=== PATIENT | male | born 1980 | race Caucasian/White ===

== ENCOUNTER 2022-06-21 19:27 | Emergency (ER) | payer OTHER, SELFPAY ==
[2022-06-21 19:28] VITALS: BP 133/118; PULSE 99; RESP 16; TEMP 36.6; O2SAT 100; BMI 28.8
--- NOTE | 2022-06-21 19:43 | EDS_ITS ---
HPI <MISTY Dueñas - Last Filed: 06/21/22 20:40> History of Present Illness Chief Complaint: Wound Check Narrative Narrative: 42-year-old male had a colon resection and colostomy done on June 04 at [place] with Dr. Gil for colon cancer. He changes the ostomy bag every few days. When he changed it today the area around the stoma was red and irritated and he felt like there was a gap between the stoma and the edge of his skin. He has had normal ostomy output and his pain has been well managed on oxycodone. No fever chills nausea or vomiting. PFSH <MISTY Dueñas - Last Filed: 06/21/22 20:40> [facility] Home Medications cephalexin 500 mg capsule 500 mg PO Q12 #14 CAPSULES 06/21/22 [Rx Last Taken Unknown] Allergy/AdvReac Type Severity Reaction Status Date / Time naproxen AdvReac Other Verified 06/21/22 19:30 Social History Smoking Status: Never smoker ROS <MISTY Dueñas - Last Filed: 06/21/22 20:40> ROS ED ROS Narrative Constitutional: Negative for fever, chills, malaise. Eyes: Negative for visual change. ENT: Negative for sore throat, ear pain, rhinorrhea. CVS: Negative for palpitations, chest pain, syncope. Respiratory: Negative for shortness of breath, cough, orthopnea. GI: Negative for abdominal pain, nausea, vomiting, diarrhea, constipation, melena, hematochezia. : Negative for dysuria, hematuria or frequency. Neuro: Negative for headache, motor/sensory dysfunction. Skin: Negative for rash, abscess, or wound. Musc: Negative for joint pain, swelling, trauma. Heme: Negative for easy bruising, bleeding, lymphadenopathy. EXAM <MISTY Dueñas Last Filed: 06/21/22 20:40> Physical Exam Narrative Exam Narrative: CONST: Patient sitting in no acute distress. EYES: Normal inspection. NECK: Normal inspection. RESP: No respiratory distress, CTAB. CVS: Regular rate and rhythm, no murmur, no gallop. ABD: Ostomy is moist, pink. Halo of surrounding skin is red moist and irritated. Abdomen is soft and nontender, no guarding or rebound, nondistended. SKIN: Color normal, no rash, warm, dry, intact. EXTREMITIES: Normal appearance, no pedal edema. NEURO: Oriented x4. PSYCH: Normal affect. Const Vital Signs: 06/21/22 19:28 Temperature 97.8 F Temperature Source Temporal Pulse Rate 99 Respiratory Rate 16 Blood Pressure 133/118 H Blood Pressure Mean 123 Pulse Ox 100 Oxygen Delivery Method Room Air <Venkat Zavala MD - Last Filed: 06/21/22 22:52> Physical Exam Const Vital Signs: 06/21/22 19:28 Temperature 97.8 F Temperature Source Temporal Pulse Rate 99 Respiratory Rate 16 Blood Pressure 133/118 H Blood Pressure Mean 123 Pulse Ox 100 Oxygen Delivery Method Room Air [facility] <MISTY Dueñas - Last Filed: 06/21/22 20:40> [facility] Narrative Medical decision making narrative: Patient changed his colostomy bag today and was concerned that there was a slight gap between his stoma and the skin. Stoma looks pink, moist, and normal- appearing. There is maybe a small amount of space on the right side between the skin and the stoma but really this just looks like from it popping out after the bag change and is not abnormal. There is a halo of surrounding skin from the adhesive that is irritated and the superior portion has small amount of blood and irritated tissue. It does not obviously look cellulitic but he has not had it covered and there is stool draining around the area. He will be covered to prevent cellulitis with Keflex and was counseled on local wound care and ostomy changes. Patient given return precautions and discharged in stable condition. <Venkat Zavala MD - Last Filed: 06/21/22 22:52> [facility] Narrative Medical decision making narrative: Patient changed his colostomy bag today and was concerned that there was a slight gap between his stoma and the skin. Stoma looks pink, moist, and normal- appearing. There is maybe a small amount of space on the right side between the skin and the stoma but really this just looks like from it popping out after the bag change and is not abnormal. There is a halo of surrounding skin from the adhesive that is irritated and the superior portion has small amount of blood and irritated tissue. It does not obviously look cellulitic but he has not had it covered and there is stool draining around the area. He will be covered to prevent cellulitis with Keflex and was counseled on local wound care and ostomy changes. Patient given return precautions and discharged in stable condition. I have personally performed a face to face assessment of the patient and have reviewed the NEHEMIAS Note. I performed a substantive portion of the visit including all aspects of the following. My edgar findings include: History is area around stoma gapped with surrounding skin irritation and redness Exam is afebrile. Vital signs noted. Nontoxic-appearing. Stoma with surrounding irritated skin with minimal bleeding and area where adhesive was. Stoma players pink, skin edge slightly from area next to stoma on right, no active bleeding Medical Decision Making: I do feel this is acceptable widening of his stoma on 1 side, I do not feel that emergent imaging is indicated. He is not having any pain. Given that he has open skin in the area around his stoma with fecal material, he will be placed on antibiotics more as prophylaxis for cellulitis. He will follow-up with his surgeon at [place]. Disposition is discharged home in stable condition. Other additions or changes: [None] Discharge Plan Triage Chief Complaint: Wound Check ED Midlevel Provider: Kellen Morales ED Provider: Venkat Zavala Dx/Rx/DC Orders Clinical Impression: Stoma dermatitis Instructions: Ostomy Pouch Change Dc Prescriptions: New cephalexin 500 mg capsule 500 mg PO Q12 Qty: 14 0RF Primary Care Provider: Care Physician,No Primary Referrals: [facility] Doctor,Out of [Non-Staff] - Activity Restrictions/Additional Instructions: Keep area clean and change the bag as directed. We put you on antibiotics to prevent skin infection. If the redness spreads or you have new issues come back to an emergency room. Disposition Disposition: Home, Self Care Discharge Date/Time: 06/21/22 20:30
[2022-06-21] MEDS: Cephalexin 250 MG Capsule 500 MG PO (20:28)
== END 2022-06-21 20:30 | disposition home or self-care (01) ==
PROVIDERS: Emergency Provider Emergency Medicine; Visit Provider Emergency Medicine
DX: K94.09 Other complications of colostomy (principal); C18.9 Malignant neoplasm of colon, unspecified
CPT/HCPCS: 99283

== ENCOUNTER 2023-07-30 13:36 | Emergency (ER) | payer OTHER, SELFPAY ==
[2023-07-30 13:37] VITALS: BP 143/101; PULSE 131; RESP 20; TEMP 36; O2SAT 98; BMI 34.5
--- NOTE | 2023-07-30 14:23 | CT_ITS ---
STUDY: CT ABDOMEN AND PELVIS WITH CONTRAST - URINARY TRACT REASON FOR EXAM: Male, 43 years old. Distension, pain diffuse, vtg RADIATION DOSAGE (If Supplied By Facility): CTDIvol = ( 14.90 ) mGy, DLP = ( 1353.47 ) mGycm TECHNIQUE: IV 100mL Isovue-300 was administered. Transaxial images were obtained from the dome of the diaphragm to the symphysis pubis subsequent to intravenous contrast administration. Multiplanar coronal and sagittal images were reformatted. Individualized Dose Optimization Techniques Were Used For This CT. COMPARISON: No relevant prior comparison study available FINDINGS: There is minimal dependent consolidation within the right lower lobe. The visualized portions of the heart are within normal limits. Normal liver. Normal gallbladder and extrahepatic biliary system. Normal spleen. Normal pancreas. Normal bilateral adrenal glands. Normal visualized stomach. There are dilated loops of the small intestine with a non-distended colon consistent with a small bowel obstruction. There is evidence of resection of the sigmoid colon associated with a colostomy within the left lower quadrant. There is non-visualization of the appendix. There is ascites throughout the abdomen and pelvis. There are ill-defined opacities within the omentum. Normal abdominal aorta. No retroperitoneal adenopathy. There is right-sided hydronephrosis. There is a right-sided stent in place with proximal pigtail within the upper pole of the right collecting system and the distal pigtail within the urinary bladder. There is left-sided hydronephrosis as well associated with a ureteral catheter in place. The proximal left ureteral catheter is within the left renal pelvis and the distal detail within the urinary bladder. There is bladder wall thickening. There is soft tissue fullness within the presacral region. Normal abdominal wall. Normal osseous structures. CT/Abdomen/Pelvis W IV Cont ONLY IMPRESSION: Small bowel obstruction. Ascites. Bilateral hydronephrosis associated with bilateral ureteral stents. Bladder wall thickening may be secondary to cystitis of uncertain chronicity. Presacral soft tissue fullness, may be postsurgical or secondary to a neoplastic process. Electronically Signed: Ashly Shelley MD at 15:32 EST ,
--- NOTE | 2023-07-30 14:23 | ED.VIS.GI ---
HPI HPI - GI History of Present Illness Chief Complaint: Nausea/Vomiting Informant: patient and family Narrative Narrative: 43-year-old male with metastatic colorectal cancer under the care of oncologist at [facility] in [facility] he recently had a chemotherapy infusion into his med port, but he has not had a bowel movement in 5 days into his colostomy, and he has been distended and having pain for several days in addition to significant vomiting. [facility] Medical History (Updated 07/30/23 @ 16:[address] Chinedu Angel MD) Malignant neoplasm of colorectal area with metastasis Home Medications cephalexin 500 mg capsule 500 mg PO Q12 #14 CAPSULES 06/21/22 [Rx Last Taken Unknown] atorvastatin 40 mg tablet 40 mg PO QHS 07/30/23 [History Last Taken Unknown] linagliptin 5 mg tablet (Tradjenta) 5 mg PO DAILY 07/30/23 [History Last Taken Unknown] morphine 30 mg tablet,extended release 30 mg PO Q12H PRN pain 07/30/23 [History Last Taken Unknown] oxybutynin chloride 5 mg tablet,extended release 24 hr 5 mg PO DAILY 07/30/23 [History Last Taken Unknown] oxycodone 10 mg tablet 10 mg PO Q4H PRN pain 07/30/23 [History Last Taken Unknown] prochlorperazine maleate 10 mg tablet 10 mg PO Q6H PRN nausea 07/30/23 [History Last Taken Unknown] sennosides 8.6 mg-docusate sodium 50 mg tablet (Stool Softener-Laxative) 1 tab-cap PO BID PRN PRN constipation 07/30/23 [History Last Taken Unknown] Allergy/AdvReac Type Severity Reaction Status Date / Time naproxen AdvReac Other Verified 07/30/23 13:39 Social History Smoking Status: Never smoker ROS ROS ED Constitutional Constitutional ED: Reports fatigue and weakness; Denies chills or fever(s) Eyes Eyes: Denies change in vision or diplopia ENT ENT ED: Denies rhinorrhea or sore throat Cardiovascular Cardiovascular: Denies chest pain or palpitations Respiratory/Chest Respiratory/Chest: Denies cough or dyspnea Gastrointestinal Gastrointestinal: Reports abdominal pain, nausea and vomiting; Denies diarrhea Genitourinary Genitourinary ED: Denies dysuria or hematuria Musculoskeletal Musculoskeletal: Denies back pain or neck pain Integumentary Denies abscess or rash Neurologic Neurologic: Denies headache(s), paresthesias or weakness Psychiatric Psychiatric: Denies anxiety or suicidal thoughts EXAM Physical Exam Const Vital Signs: 07/30/23 13:37 07/30/23 16:04 07/30/23 18:09 Temperature 96.8 F L Temperature Source Temporal Pulse Rate 131 H 92 Respiratory Rate 20 H 19 H Blood Pressure 143/101 H 138/92 H 132/89 H Blood Pressure Mean 115 107 103 Pulse Ox 98 92 91 Oxygen Delivery Method Room Air Room Air 07/30/23 18:26 07/30/23 19:02 Temperature 98.4 F Temperature Source Oral Pulse Rate 82 94 Respiratory Rate 16 16 Blood Pressure 129/93 H 118/97 H Blood Pressure Mean 105 104 Pulse Ox 92 94 Oxygen Delivery Method Room Air Positive well nourished and well developed Constitutional Narrative: Malaised appearing General Appearance ED: well developed, NAD and pallor HEENT Reports moist mucous membranes normocephalic and atraumatic Eyes PERRL and EOMs intact bilaterally Neck full ROM and supple Resp normal respiratory effort and clear to auscultation bilaterally Cardio regular rate, regular rhythm and no murmurs Rate: tachycardic GI GI Narrative: Very distended, no ostomy output in bag, hypoactive bowel sounds, nontender diffusely but limited exam due to distention. Well-healing laparoscopic surgical incisions. Palpation: soft Back/Spine no CVA tenderness General Back: other FROM Extremity normal to inspection General Extremety ED: Negative for edema, pulses abnormal or tenderness General Extremity: Negative for edema or pulses abnormal Neuro oriented x3, CN's II-XII intact bilaterally and no sensory deficits noted Sensorium / Orientation: awake and alert Motor Exam: general weakness Psych mental status grossly normal and thought process normal Skin no rashes or lesions noted and no wounds General Skin Exam: pallor MDM MDM MDM Narrative Medical decision making narrative: Labs noted, CT images I reviewed and the result as well which I agree with, consistent with a small bowel obstruction and some ascites. I recommended NG tube if the patient is severely distended and has been vomiting all day. He will clearly need to be transferred back to [facility] where he was just admitted and his specialists are including colorectal Dr. Gil and hematology/oncology Dr. Russell. They are in agreement with this, however absolutely refused to go by ambulance, and so until we were able to discussed with the transfer center we held off on an NG since the patient understands he will not be able to take the NG down via private vehicle and he accessed the port. However, after discussing with the transfer center, there is a waiting list and it is possible he may not be able to have a bed available today. I discussed this with family given the option regarding the NG tube here based on how he is feeling. The patient decided to go ahead with the NG tube. KUB 1 view on my interpretation shows good placement, radiology in agreement. Subsequently, [facility] has a bed and accepting physician and he is excepted to the emergency department, and at this time he changed his mind and is willing to go by ambulance. We are calling for transport. Lab Data Attestation: I reviewed the patient's lab results. Labs: Laboratory Results - last 24 hr 07/30/23 14:00 WBC 6.3 RBC 4.42 L Hgb 12.3 L Hct 37.2 L MCV 84.2 MCH 27.8 MCHC 33.1 RDW Std Deviation 39.2 RDW Coeff of Ajay 12.9 Plt Count 418 MPV 9.4 Immature Gran % (Auto) 0.300 Neut % (Auto) 82.7 H Lymph % (Auto) 7.3 L Todd % (Auto) 8.9 Eos % (Auto) 0.3 Baso % (Auto) 0.5 Absolute Neuts (auto) 5.2 Absolute Lymphs (auto) 0.46 L Nucleated RBC % 0 Sodium 137 Potassium 3.3 L Chloride 98 Carbon Dioxide 30.0 Anion Gap 9 BUN 24 H Creatinine 1.30 Estim Creat Clear Calc 64.39 Est GFR (MDRD) Af Amer 78 Est GFR (MDRD) Non-Af 64 BUN/Creatinine Ratio 18.5 Glucose 223 H Lactic Acid 1.0 Calcium 9.6 Total Bilirubin 0.60 AST 20 ALT 46 Alkaline Phosphatase 99 Total Protein 7.2 Albumin 3.0 L Globulin 4.2 Albumin/Globulin Ratio 0.7 L Lipase 17 Radiography Diagnostic Testing: Clinical Impression(s) from Imaging Studies Abdomen/Pelvis CT 07/30/23 14:23 IMPRESSION: Small bowel obstruction. Ascites. Bilateral hydronephrosis associated with bilateral ureteral stents. Bladder wall thickening may be secondary to cystitis of uncertain chronicity. Presacral soft tissue fullness, may be postsurgical or secondary to a neoplastic process. Electronically Signed: Ashly Shelley MD at 15:32 EST , KUB X-Ray 07/30/23 16:50 IMPRESSION: 1. The enteric tube tip and side-port are below the level of the GE junction. 2. Nonspecific bowel gas pattern. 3. Excreted contrast within the urinary collecting systems revealing bilateral hydronephrosis. Ureteral stents are identified. Electronically Signed: Russell Garcia DO at 17:00 EST , Management Discussion w/another healthcare provider: Other (Transfer center at [facility]) Discharge Plan Triage Chief Complaint: Nausea/Vomiting Other Complaint: Abd Pain ED Provider: Chinedu Angel Dx/Rx/DC Orders Clinical Impression: Malignant neoplasm of colorectal area with metastasis, Small intestine obstruction Prescriptions: No Action cephalexin 500 mg capsule 500 mg PO Q12 Qty: 14 0RF morphine 30 mg tablet extended release 30 mg PO Q12H PRN (Reason: pain) Patient Comments: TAKE 1 TABLET BY MOUTH EVERY 12 HOURS oxycodone 10 mg tablet 10 mg PO Q4H PRN (Reason: pain) Patient Comments: TAKE 1 TABLET BY MOUTH EVERY 4 TO 6 HOURS NEEDED FOR PAIN sennosides-docusate sodium [Stool Softener-Laxative] 8.6-50 mg tablet 1 tab-cap PO BID PRN PRN (Reason: constipation) Patient Comments: TAKE 1 TABLET BY MOUTH NIGHTLY prochlorperazine maleate 10 mg tablet 10 mg PO Q6H PRN (Reason: nausea) Patient Comments: TAKE 1 TABLET BY MOUTH EVERY 6 HOURS NEEDED FOR NAUSEA oxybutynin chloride 5 mg tablet extended release 24hr 5 mg PO DAILY Patient Comments: TAKE 1 TABLET BY MOUTH ONCE DAILY Tradjenta 5 mg tablet 5 mg PO DAILY Patient Comments: TAKE 1 TABLET BY MOUTH ONCE DAILY atorvastatin 40 mg tablet 40 mg PO QHS Patient Comments: TAKE 1 TABLET BY MOUTH ONCE DAILY Primary Care Provider: RJ QUILES Referrals: Care Physician,No Primary [Non-Staff] -
[2023-07-30] MEDS: 0.9% Normal Saline (1000mL) 1,000 ML 1000 ML IV (14:35)
[2023-07-30] MEDS: Ondansetron 4 MG/2 ML Vial IV (14:35)
[2023-07-30] MEDS: Morphine 4 MG/ML Syringe IV ×3 (14:36→21:55)
[2023-07-30 14:50] LABS: Absolute Lymphocyte Count 0.46 X10^3/uL (0.83-4.51); Absolute Neutrophil Count 5.2 X10^3/uL (2.0-7.7); Basophil# 0.03 X10^3/uL; Basophil% 0.5 % (0-1); Eosinophil# 0.02 X10^3/uL; Eosinophils% 0.3 % (0-5); Hematocrit 37.2 % (40-54); Hemoglobin 12.3 g/dL (13.0-16.5); Lymphocyte # 0.46 X10^3/ul (0.83-4.51); Lymphocyte % 7.3 % (19-41); Mean Corp Hgb Conc 33.1 g/dL (32-36); Mean Corpuscular Hgb 27.8 pg (27.0-32.0); Mean Corpuscular Volume 84.2 fL (80-94); Mean Platelet Vol. 9.4 fl (6.2-12.0); Monocyte# 0.56 X10^3/uL; Monocyte% 8.9 % (0-10); NRBC Flagged by Analyzer 0 % (0-5); Neutrophil # 5.21 X10^3/uL (2.7-7.7); Neutrophil % 82.7 % (47-70); POSITIVE DIFFERENTIAL YES; Platelet Count 418 K/mm3 (150-450); RBC Distribution Width CV 12.9 % (11.6-14.6); RBC Distribution Width SD 39.2 fl (35.1-43.9); Red Blood Count 4.42 M/mm3 (4.6-6.2); White Blood Count 6.3 K/mm3 (4.4-11.0)
[2023-07-30 14:51] LABS: Differential Indicated SCAN CRITERIA MET
[2023-07-30 15:08] LABS: ALB/GLOB Ratio 0.7 RATIO (0.9-2.4); AST(SGOT) 20 U/L (15-37); Alanine Aminotransfer ALT/SGPT 46 U/L (16-61); Alkaline Phosphatase 99 U/L (45-117); Anion Gap 9 (5-15); BUN 24 mg/dL (7-18); BUN/Creat Ratio 18.5 RATIO (10-20); Calcium,Total 9.6 mg/dL (8.5-10.1); Chloride 98 mmol/L (98-107); EST Glomerular Filtration Rate 64 mL/min (>60); Est Glom Filt Rate - Afr Amer 78 mL/min (>60); Estimated Creatinine Clearance 64.39 ml/min; Globulin 4.2 g/dL (2.2-4.2); Glucose 223 mg/dL (74-106); Lipase 17 U/L (13-75); Potassium 3.3 mmol/L (3.5-5.1); Protein, Total 7.2 g/dL (6.4-8.2); Sodium Level 137 mmol/L (136-145)
[2023-07-30] MEDS: Oxymetazoline 0.05% 1 SPRAY SPRAY.BTL 2 SPRAY NASAL (15:58)
[2023-07-30 16:04] VITALS: BP 138/92; O2SAT 92
--- NOTE | 2023-07-30 16:15 | NURSING ---
CALLED [facility]. TALKED TO DALLIN. FAXED FACESHEET TO [phone]
--- NOTE | 2023-07-30 16:50 | RAD_ITS ---
EXAM: XR ABDOMEN, 1 VIEW CLINICAL INDICATION: NG placement TECHNIQUE: Frontal supine view of the abdomen/pelvis. COMPARISON: CT abdomen and pelvis on the same date. FINDINGS: LOWER THORAX: No acute pathology. GASTROINTESTINAL TRACT: Nonspecific bowel gas pattern. Non-obstructive. No bowel or stomach distention. ORGANS: Excreted contrast within the urinary collecting systems revealing bilateral hydronephrosis. Ureteral stents are identified. No organomegaly. No abnormal calcifications. BONES/JOINTS: No acute pathology. SOFT TISSUES: No acute pathology. TUBES, LINES AND DEVICES: The enteric tube tip and side-port are below the level of the GE junction. RAD/Abdomen Single View (Portable) IMPRESSION: 1. The enteric tube tip and side-port are below the level of the GE junction. 2. Nonspecific bowel gas pattern. 3. Excreted contrast within the urinary collecting systems revealing bilateral hydronephrosis. Ureteral stents are identified. Electronically Signed: Russell Garcia DO at 17:00 EST ,
--- NOTE | 2023-07-30 17:58 | NURSING ---
ACCEPTED AT [facility]
[2023-07-30 18:09] VITALS: BP 132/89; PULSE 92; RESP 19; O2SAT 91
[2023-07-30 18:26] VITALS: BP 129/93; PULSE 82; RESP 16; O2SAT 92
--- NOTE | 2023-07-30 18:39 | ED.RN ---
Attempted to call Report to [facility], on hold for 10 minutes. Will try again shortly.
[2023-07-30 19:02] VITALS: BP 118/97; PULSE 94; RESP 16; TEMP 36.9; O2SAT 94
--- NOTE | 2023-07-30 20:01 | NURSING ---
CALLED [facility] AT 1954 TO GET AN UPDATED ETA AND WAS TOLD IT GOT PUSHED BACK TO 2200 DUE TO LOCAL RUNS THAT THEY ARE GOING TO DO FIRST.
[2023-07-30 20:59] VITALS: BP 128/93; PULSE 93; RESP 16; O2SAT 92
== END 2023-07-30 23:50 | disposition short-term general hospital (02) ==
LOC: ED 14:30
PROVIDERS: Emergency Provider Emergency Medicine; Referring Provider Emergency Medicine; Visit Provider Emergency Medicine
DX: C19 Malignant neoplasm of rectosigmoid junction (principal); Z93.3 Colostomy status; K56.609 Unspecified intestinal obstruction, unspecified as to partial versus complete obstruction; Z79.899 Other long term (current) drug therapy
CPT/HCPCS: 36591; 74018; 74177; 80053; 83605; 83690; 85025; 96361; 96374; 96375; 96376; 99283; J7030; Q9967; A4216; J2405

== ENCOUNTER 2023-09-03 10:31 | Emergency (ER) | payer OTHER, SELFPAY ==
[2023-09-03 10:33] VITALS: BP 136/118; PULSE 97; RESP 18; TEMP 36.6; O2SAT 95; BMI 29.0
--- NOTE | 2023-09-03 11:15 | CT_ITS ---
STUDY: CT ABDOMEN AND PELVIS WITH CONTRAST REASON FOR EXAM: Male, 43 years old. pain, rectal CA RADIATION DOSAGE (If Supplied By Facility): CTDIvol = ( 10.05 ) mGy, DLP = ( 634.82 ) mGycm TECHNIQUE: Transaxial images were obtained from the dome of the diaphragm to the symphysis pubis without oral contrast. IV 100mL Isovue-300 was administered. Sagittal and coronal images were reconstructed. Individualized dose optimization techniques were used for this CT. COMPARISON: Comparison is made with prior study dated July 30, 2023. FINDINGS: The tip of a christa catheter is seen within the superior vena cava. Mild increased markings at the lung bases slightly more prominent on the right side suggestive of a basilar atelectasis. Mild coronary artery calcification. Ascites. Normal liver. Normal gallbladder and extrahepatic biliary system. Normal spleen. Normal pancreas. Normal bilateral adrenal glands. There is evidence of bilateral double J stent catheters bilaterally. The proximal tip is in the renal pelvis and the distal tip is in the urinary bladder. There is fluid distention of the stomach. A percutaneous PEG tube is seen in the distal portion of the stomach. Small bowel ostomy is seen in the left anterior abdominal wall. Anastomosis seen in the mid portion of the transverse colon. Moderate to large amount of fecal material is seen within the colon. Soft tissue prominence in the region of the rectum. Questionable rectal mass. Normal abdominal aorta. Normal inferior vena cava. Normal retroperitoneum. Mild degree of bladder wall thickening. Postoperative changes are seen in the subcutaneous tissue in the mid lower abdomen in keeping with recent surgery. Normal osseous structures. CT/Abdomen/Pelvis W IV Cont ONLY IMPRESSION: Findings suggestive or atelectasis at the lung bases. Ascites. PEG tube is seen within the stomach. The stomach is fully distended. Surgical anastomosis seen in the midportion of the transverse colon with residual fecal material throughout the colon. A small bowel ostomy is seen in the left anterior abdominal wall. Stable bilateral double-J stent catheters. Persistent presacral soft tissue prominence. Electronically Signed: Dio Eller MD at 13:21 EST ,
--- NOTE | 2023-09-03 11:16 | EDS_ITS ---
HPI History of Present Illness Chief Complaint: Abd Pain Informant: patient and parent Narrative Narrative: Patient presents secondary to increased abdominal pain and distention with an episode of vomiting. Patient has metastatic rectal cancer. He had surgery 1 month ago at [facility] in [place]. His last chemotherapy treatment was July 27. Patient presents today via EMS from local [facility] secondary to increasing abdominal pain for the past couple days with distention. He had decreased output in his colostomy bag. He did have an episode of vomiting last evening. He has not had fever. [facility] Medical History Abnormal colonoscopy Anxiety and depression Diabetes History of flexible sigmoidoscopy Hyperlipemia Malignant neoplasm of colorectal area with metastasis Monoallelic mutation of MIK gene Neuropathy Obesity Port-A-Cath in place Seizures Home Medications cephalexin 500 mg capsule 500 mg PO Q12 #14 CAPSULES 06/21/22 [Rx Last Taken Unknown] atorvastatin 40 mg tablet 40 mg PO QHS 07/30/23 [History Last Taken Unknown] linagliptin 5 mg tablet (Tradjenta) 5 mg PO DAILY 07/30/23 [History Last Taken Unknown] morphine 30 mg tablet,extended release 30 mg PO Q12H PRN pain 07/30/23 [History Last Taken Unknown] oxybutynin chloride 5 mg tablet,extended release 24 hr 5 mg PO DAILY 07/30/23 [History Last Taken Unknown] oxycodone 10 mg tablet 10 mg PO Q4H PRN pain 07/30/23 [History Last Taken Unknown] prochlorperazine maleate 10 mg tablet 10 mg PO Q6H PRN nausea 07/30/23 [History Last Taken Unknown] sennosides 8.6 mg-docusate sodium 50 mg tablet (Stool Softener-Laxative) 1 tab- cap PO BID PRN PRN constipation 07/30/23 [History Last Taken Unknown] capecitabine 150 mg tablet 150 mg PO BID 08/24/23 [History Last Taken Unknown] gabapentin 300 mg capsule 300 mg PO DAILY 08/24/23 [History Last Taken Unknown] lisinopril 10 mg tablet 10 mg PO DAILY 08/24/23 [History Last Taken Unknown] metformin 500 mg tablet 500 mg PO DAILY 08/24/23 [History Last Taken Unknown] semaglutide 1 mg/dose (4 mg/3 mL) subcutaneous pen injector (PropertyGuruempic) 1 mg subcu t QWEEK 08/24/23 [History Last Taken Unknown] Allergy/AdvReac Type Severity Reaction Status Date / Time naproxen AdvReac Other Verified 09/03/23 10:33 Family History Father CVA (cerebral vascular accident) Diabetes Agent orange exposure Aunt Colon cancer Grandmother Colon cancer Grandfather Diabetes Surgical History H/O ureteroscopy History of creation of ostomy History of incision and drainage History of laparoscopy Social History Smoking Status: Unknown if ever smoked Tobacco: How many years used: 10 alcohol intake: current alcohol intake frequency: holidays/special occasions only substance use type: does not use ROS ROS ED Constitutional Constitutional ED: Denies chills or fever(s) Eyes Eyes: Denies discharge from eye(s) ENT ENT ED: Denies discharge from eye(s), rhinorrhea or sore throat Cardiovascular Cardiovascular: Denies chest pain Respiratory/Chest Respiratory/Chest: Denies cough or dyspnea Gastrointestinal Gastrointestinal: Reports abdominal pain, nausea and vomiting Musculoskeletal Musculoskeletal: Denies back pain or extremity pain Integumentary Denies Abrasions or rash Neurologic Neurologic: Reports weakness; Denies headache(s) Psychiatric Psychiatric: Denies anxiety or depression Allergic/Immunologic Allergic/Immunologic ED: Denies lip swelling or urticaria EXAM Physical Exam Const Vital Signs: 09/03/23 10:33 09/03/23 13:18 Temperature 97.8 F 97.3 F L Temperature Source Oral Temporal Pulse Rate 97 89 Respiratory Rate 18 16 Blood Pressure 136/118 H 114/80 Blood Pressure Mean 124 91 Pulse Ox 95 96 Oxygen Delivery Method Room Air Room Air Positive well nourished and well developed General Appearance ED: well developed HEENT Reports moist mucous membranes Eyes EOMs intact bilaterally Chest Wall inspection of chest normal and palpation of chest normal Resp normal respiratory effort and clear to auscultation bilaterally Cardio regular rate and regular rhythm GI GI Narrative: Abdomen soft with slight distention. No focal tenderness. Recent surgical wound midline is clean with no sign of infection. Colostomy bag contains air and small amount of stool. Extremity normal to inspection Neuro Neuro Narrative: Patient rests with eyes closed but will answer questions and follow commands. Skin no rashes or lesions noted MDM MDM MDM Narrative Medical decision making narrative: IV line will be established. Labwork obtained to evaluate for leukocytosis, anemia, and electrolyte derangement. CT scan of the abdomen and pelvis will be obtained with IV contrast to evaluate for potential bowel obstruction. History & Record Review Discussion w/independent historian: Patient and Family Lab Data Attestation: I reviewed the patient's lab results. Labs: Laboratory Results - last 24 hr 09/03/23 09/03/23 10:50 13:20 WBC 7.9 RBC 3.81 L Hgb 9.9 L Hct 31.3 L MCV 82.2 MCH 26.0 L MCHC 31.6 L RDW Std Deviation 41.1 RDW Coeff of Ajay 13.8 Plt Count 518 H MPV 9.5 Immature Gran % (Auto) 0.400 Neut % (Auto) 70.0 Lymph % (Auto) 17.2 L [place] % (Auto) 10.9 H Eos % (Auto) 0.9 Baso % (Auto) 0.6 Absolute Neuts (auto) 5.5 Absolute Lymphs (auto) 1.36 Nucleated RBC % 0 PT 14.4 INR 1.1 APTT 30.9 Sodium 139 Potassium 3.7 Chloride 103 Carbon Dioxide 29.0 Anion Gap 7 BUN 22 H Creatinine 1.31 H Estim Creat Clear Calc 71.17 Est GFR (MDRD) Af Amer 77 Est GFR (MDRD) Non-Af 64 BUN/Creatinine Ratio 16.8 Glucose 189 H Calcium 9.8 Total Bilirubin 0.30 Direct Bilirubin 0.10 AST 8 L ALT 18 Alkaline Phosphatase 124 H Total Protein 7.7 Albumin 2.6 L Globulin 5.1 H Lipase 23 Urine Color Yellow Urine Clarity Clear Urine pH 5.0 Ur Specific [place] 1.010 Urine Protein Negative Urine Glucose (UA) Normal Urine Ketones Negative Urine Occult Blood Negative Urine Nitrite Negative Urine Bilirubin Negative Urine Urobilinogen Normal Ur Leukocyte Esterase 25 H Urine RBC 0 SEEN Urine WBC 0-5 SEEN Ur Squamous Epith Cells 0 SEEN Urine Bacteria 0 SEEN Urine Mucus 0 SEEN Radiography Diagnostic Testing: Clinical Impression(s) from Imaging Studies Abdomen/Pelvis CT 09/03/23 11:15 IMPRESSION: Findings suggestive or atelectasis at the lung bases. Ascites. PEG tube is seen within the stomach. The stomach is fully distended. Surgical anastomosis seen in the midportion of the transverse colon with residual fecal material throughout the colon. A small bowel ostomy is seen in the left anterior abdominal wall. Stable bilateral double-J stent catheters. Persistent presacral soft tissue prominence. Electronically Signed: Dio Eller MD at 13:21 EST , EKG Initial EKG: Attestation: I personally reviewed and interpreted this EKG as follows: Interpretation: Sinus Rhythm (Sinus 81 with no acute ischemia.) Treatment and Re-Evaluation :: CBC was normal white count 7.9 with a hemoglobin 9.9. This is actually improved when compared to his prior values. Chemistry studies unremarkable other than a BUN of 22 and a creatinine 1.31. This again is consistent with his recent values. Glucose is 189. LFTs significantly for an alk phos of 124. Urinalysis reveals no evidence of infection. CT scan of the abdomen and pelvis with IV contrast is obtained. Patient does have ascites and evidence of atelectasis at the lung bases. PEG tube was seen within the stomach. The stomach is fully distended. Surgical anastomosis seen at the midportion of the transverse colon with residual fecal material throughout the colon. Small bowel ostomy is noted in the left anterior abdominal wall. Renal stents noted in good position. When patient returned from [place] family stated that they had hooked his PEG tube up to suction at [place] and this seemed to help his symptoms. This was performed here and has improved his nausea. We spoke with the [facility] and with an order they are able to hook him up to intermittent suction to help with this. At this point I do not see reason for hospital admission. Order for suction has been faxed to the facility and they will obtain the equipment within the next 4 to 6 hours. Patient can be discharged back to [facility]. Discharge Plan Triage Chief Complaint: Abd Pain ED Provider: Yani Delgado Dx/Rx/DC Orders Clinical Impression: Abdominal distension Prescriptions: No Action Ozempic 1 mg/dose (4 mg/3 mL) pen injector 1 mg subcut QWEEK capecitabine 150 mg tablet 150 mg PO BID Rx Instructions: administer with 3 - 500 mg tabs for each dose; must give with water 30 minutes after a meal gabapentin 300 mg capsule 300 mg PO DAILY metformin 500 mg tablet 500 mg PO DAILY lisinopril 10 mg tablet 10 mg PO DAILY cephalexin 500 mg capsule 500 mg PO Q12 Qty: 14 0RF morphine 30 mg tablet extended release 30 mg PO Q12H PRN (Reason: pain) Patient Comments: TAKE 1 TABLET BY MOUTH EVERY 12 HOURS oxycodone 10 mg tablet 10 mg PO Q4H PRN (Reason: pain) Patient Comments: TAKE 1 TABLET BY MOUTH EVERY 4 TO 6 HOURS NEEDED FOR PAIN sennosides-docusate sodium [Stool Softener-Laxative] 8.6-50 mg tablet 1 tab-cap PO BID PRN PRN (Reason: constipation) Patient Comments: TAKE 1 TABLET BY MOUTH NIGHTLY prochlorperazine maleate 10 mg tablet 10 mg PO Q6H PRN (Reason: nausea) Patient Comments: TAKE 1 TABLET BY MOUTH EVERY 6 HOURS NEEDED FOR NAUSEA oxybutynin chloride 5 mg tablet extended release 24hr 5 mg PO DAILY Patient Comments: TAKE 1 TABLET BY MOUTH ONCE DAILY Tradjenta 5 mg tablet 5 mg PO DAILY Patient Comments: TAKE 1 TABLET BY MOUTH ONCE DAILY atorvastatin 40 mg tablet 40 mg PO QHS Patient Comments: TAKE 1 TABLET BY MOUTH ONCE DAILY Primary Care Provider: Cara Padron Referrals: Cara Padron MD [Primary Care Provider] - 3-5 Days Activity Restrictions/Additional Instructions: As discussed, order has been sent to the fpc so they can treatment supervisor intermittent suction to your PEG tube to help with distention. Disposition Disposition: Long Term Facility Discharge Location: [facility]
--- NOTE | 2023-09-03 11:18 | ED.RN ---
NO OLD EKG
[2023-09-03] MEDS: 0.9% Normal Saline (1000mL) 1,000 ML 150 ML IV (11:33)
[2023-09-03 11:36] LABS: Absolute Lymphocyte Count 1.36 X10^3/uL (0.83-4.51); Absolute Neutrophil Count 5.5 X10^3/uL (2.0-7.7); Basophil# 0.05 X10^3/uL; Basophil% 0.6 % (0-1); Eosinophil# 0.07 X10^3/uL; Eosinophils% 0.9 % (0-5); Hematocrit 31.3 % (40-54); Hemoglobin 9.9 g/dL (13.0-16.5); Lymphocyte # 1.36 X10^3/ul (0.83-4.51); Lymphocyte % 17.2 % (19-41); Mean Corp Hgb Conc 31.6 g/dL (32-36); Mean Corpuscular Volume 82.2 fL (80-94); Mean Platelet Vol. 9.5 fl (6.2-12.0); Monocyte# 0.86 X10^3/uL; Monocyte% 10.9 % (0-10); NRBC Flagged by Analyzer 0 % (0-5); Neutrophil # 5.54 X10^3/uL (2.7-7.7); Platelet Count 518 K/mm3 (150-450); RBC Distribution Width CV 13.8 % (11.6-14.6); RBC Distribution Width SD 41.1 fl (35.1-43.9); Red Blood Count 3.81 M/mm3 (4.6-6.2); White Blood Count 7.9 K/mm3 (4.4-11.0)
[2023-09-03 11:39] LABS: International Normalized Ratio 1.1; Prothrombin Time (Protime)PT. 14.4 SECONDS (11.7-14.9)
[2023-09-03 11:40] LABS: AST(SGOT) 8 U/L (15-37); Alanine Aminotransfer ALT/SGPT 18 U/L (16-61); Albumin, Serum 2.6 g/dL (3.2-5.0); Alkaline Phosphatase 124 U/L (45-117); Anion Gap 7 (5-15); BUN 22 mg/dL (7-18); BUN/Creat Ratio 16.8 RATIO (10-20); Calcium,Total 9.8 mg/dL (8.5-10.1); Chloride 103 mmol/L (98-107); Creatinine, Serum 1.31 mg/dL (0.70-1.30); EST Glomerular Filtration Rate 64 mL/min (>60); Est Glom Filt Rate - Afr Amer 77 mL/min (>60); Estimated Creatinine Clearance 71.17 ml/min; Globulin 5.1 g/dL (2.2-4.2); Glucose 189 mg/dL (74-106); Lipase 23 U/L (13-75); Potassium 3.7 mmol/L (3.5-5.1); Protein, Total 7.7 g/dL (6.4-8.2); Sodium Level 139 mmol/L (136-145)
[2023-09-03 11:41] LABS: Partial Thromboplast Time 30.9 Seconds (24.1-36.2)
[2023-09-03] MEDS: Morphine 4 MG/ML Syringe IV ×2 (12:12→15:30)
[2023-09-03] MEDS: Ondansetron 4 MG/2 ML Vial IV (12:12)
[2023-09-03 13:18] VITALS: BP 114/80; PULSE 89; RESP 16; TEMP 36.3; O2SAT 96
[2023-09-03 13:22] LABS: Bacteria 0 SEEN /hpf (None Seen); Mucous, Urine 0 SEEN /hpf (<or=2+); Red Blood Cells-Urine 0 SEEN /hpf (0-5); Squamous Epithelial Cells - UA 0 SEEN /hpf (0-5)
[2023-09-03 13:30] LABS: Color, Urine Yellow (Yellow); Glucose, Dipstick Normal (Normal); Ketone-Dipstick Negative (Negative); Leukocyte Esterase-Dipstick 25 /ul (Negative); Nitrite-Dipstick Negative (Negative); Occult Blood-Urine Negative /ul (Negative); Protein-Dipstick Negative (Negative); Urine Bilirubin Dipstick Negative (Negative); Urine Clarity Clear (Clear); Urine Urobilinogen Normal (Normal)
[2023-09-03 13:35] LABS: White Blood Cells 0-5 SEEN /hpf (0-5)
--- NOTE | 2023-09-03 13:57 | ED.RN ---
G tube to suction per pt request. notified. 300 ml out immediately.
[2023-09-03 14:47] VITALS: BP 135/88; PULSE 100; RESP 17; O2SAT 94
--- NOTE | 2023-09-03 14:59 | ED.RN ---
[facility] CALLED, ETA 1 HOUR (1600)
[2023-09-03 15:02] VITALS: BP 135/88; PULSE 96
--- NOTE | 2023-09-03 15:20 | ED.RN ---
reports given to Nickie BURGESS at [facility]. informed that they should have received fax for suction. also informed that pt is requesting colostomy bag to be changed today when returning to [facility]. ride should be here at 1600.
--- NOTE | 2023-09-03 15:48 | ED.RN ---
[facility] CALLED TO UPDATE ON ETA. SPOKE WITH NADIR, SHE STATED THAT THE RIDE IS PUSHED BACK FROM 1600 TO [phone].
== END 2023-09-03 16:38 | disposition skilled nursing facility (03) ==
PROVIDERS: Emergency Provider Emergency Medicine; PCP Internal Medicine; Visit Provider Emergency Medicine
DX: R14.0 Abdominal distension (gaseous) (principal); C79.9 Secondary malignant neoplasm of unspecified site; Z93.3 Colostomy status; C20 Malignant neoplasm of rectum; E11.9 Type 2 diabetes mellitus without complications; R18.8 Other ascites; R11.10 Vomiting, unspecified; E78.5 Hyperlipidemia, unspecified; Z79.84 Long term (current) use of oral hypoglycemic drugs; Z79.899 Other long term (current) drug therapy; Z80.0 Family history of malignant neoplasm of digestive organs
CPT/HCPCS: 36591; 74177; 80048; 80076; 81001; 83690; 85025; 85610; 85730; 93005; 96361; 96374; 96375; 96376; 99285; J7030; P9612; Q9967; A4216; J2405

== ENCOUNTER 2023-09-04 15:00 | Inpatient (IN) | payer OTHER, SELFPAY ==
[2023-09-04] VITALS (11 sets, daily range): BP systolic 98–128; BP diastolic 61–77; PULSE 108–134; RESP 16–29; TEMP 36.7–39.6; O2SAT 93–99; BMI 28.3; BMI 28.8
--- NOTE | 2023-09-04 15:45 | EDS_ITS ---
HPI History of Present Illness Chief Complaint: Fever Informant: patient and family Narrative Narrative: 43-year-old male with metastatic rectal cancer had a bowel obstruction a month ago or more and surgery shortly thereafter, he has a wound VAC ever since then t hat has not been putting out a lot according to him. He was seen here yesterday because of abdominal pain and some nausea that got worse, he had a negative workup. He presents now because he developed a fever at the assisted and was sent back for reevaluation. 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 He urinates on his own, he has bilateral ureteral stents because of hydronephrosis bilaterally, and he denies any hematuria or difficulty urinating at all. States he is not having a lot of colostomy output because he is not eating very much, but he is passing flatus into it and not vomiting. He has been on TPN at the assisted, but they were not giving it to him for some reason since he was having abdominal pain in the last several days. He has had no chemotherapy since his surgery a month ago, so his last treatment was at the end of July. He follows with colorectal and oncology at [facility] in [place]. [facility] Medical History Abnormal colonoscopy Anxiety and depression Diabetes History of flexible sigmoidoscopy Hyperlipemia Malignant neoplasm of colorectal area with metastasis Monoallelic mutation of MIK gene Neuropathy Obesity Port-A-Cath in place Seizures Home Medications cephalexin 500 mg capsule 500 mg PO Q12 #14 CAPSULES 06/21/22 [Rx Last Taken Unknown] atorvastatin 40 mg tablet 40 mg PO DAILY CHOLESTEROL 07/30/23 [History Last Taken Unknown] linagliptin 5 mg tablet (Tradjenta) 5 mg PO DAILY 07/30/23 [History Last Taken Unknown] morphine 30 mg tablet,extended release 30 mg PO Q12H PRN pain 07/30/23 [History Last Taken Unknown] oxybutynin chloride 5 mg tablet,extended release 24 hr 10 mg PO DAILY URINARY SPASMS 07/30/23 [History Last Taken Unknown] oxycodone 10 mg tablet 10 mg PO Q4H PRN pain 07/30/23 [History Last Taken Unknown] prochlorperazine maleate 10 mg tablet 10 mg PO Q6H PRN nausea 07/30/23 [History Last Taken Unknown] sennosides 8.6 mg-docusate sodium 50 mg tablet (Stool Softener-Laxative) 1 tab- cap PO BID PRN PRN constipation 07/30/23 [History Last Taken Unknown] capecitabine 150 mg tablet 150 mg PO BID 08/24/23 [History Last Taken Unknown] gabapentin 300 mg capsule 300 mg PO DAILY 08/24/23 [History Last Taken Unknown] lisinopril 10 mg tablet 10 mg PO DAILY 08/24/23 [History Last Taken Unknown] metformin 500 mg tablet 500 mg PO DAILY 08/24/23 [History Last Taken Unknown] semaglutide 1 mg/dose (4 mg/3 mL) subcutaneous pen injector (Ozempic) 1 mg subcut QWEEK 08/24/23 [History Last Taken Unknown] dronabinol 5 mg capsule 5 mg PO BID POOR APPETITE 09/04/23 [History Last Taken Unknown] ergocalciferol (vitamin D2) 1,250 mcg (50,000 unit) capsule (Drisdol) 50,000 unit PO QWEEK SUPPLEME 09/04/23 [History Last Taken Unknown] famotidine 20 mg tablet 20 mg PO BID INDIGESTION 09/04/23 [History Last Taken Unknown] mirtazapine 15 mg tablet 15 mg PO QHS DEPRESSION 09/04/23 [History Last Taken Unknown] multivitamin 1 tab PO DAILY SUPPLEMENT 09/04/23 [History Last Taken Unknown] ondansetron HCl 4 mg tablet 4 mg PO Q6H PRN N/V 09/04/23 [History Last Taken Unknown] trazodone 50 mg tablet 25 mg PO QHS INSOMNIA 09/04/23 [History Last Taken Unknown] Allergy/AdvReac Type Severity Reaction Status Date / Time naproxen AdvReac Other Verified 09/04/23 15:05 Family History Father CVA (cerebral vascular accident) Diabetes Agent orange exposure Aunt Colon cancer Grandmother Colon cancer Grandfather Diabetes Surgical History H/O ureteroscopy History of creation of ostomy History of incision and drainage History of laparoscopy Social History Smoking Status: Former smoker Tobacco: How many years used: 10 alcohol intake: current alcohol intake frequency: holidays/special occasions only substance use type: does not use ROS ROS ED Constitutional Constitutional ED: Reports chills, fever(s) and subjective Eyes Eyes: Denies change in vision or diplopia ENT ENT ED: Denies ear pain, rhinorrhea or sore throat Cardiovascular Cardiovascular: Denies chest pain or palpitations Respiratory/Chest Respiratory/Chest: Denies cough or dyspnea Gastrointestinal Gastrointestinal: Reports abdominal pain and nausea; Denies diarrhea, hematochezia or vomiting Genitourinary Genitourinary ED: Denies dysuria or hematuria Musculoskeletal Musculoskeletal: Denies back pain or neck pain Integumentary Denies abscess or rash Neurologic Neurologic: Reports other Details: Generalized nonfocal weakness ; Denies headache(s), paresthesias or weakness Psychiatric Psychiatric: Denies suicidal ideation or suicidal thoughts EXAM Physical Exam Const Vital Signs: 09/04/23 15:02 09/04/23 15:06 09/04/23 16:24 Temperature 100.5 F H 100.5 F H Temperature Source Oral Temporal Pulse Rate 134 H 134 H Respiratory Rate 20 H 16 Respiratory Effort Normal Respiratory Pattern Normal Blood Pressure 112/75 100/70 Blood Pressure Mean 87 80 Pulse Ox 93 96 Oxygen Delivery Method Room Air Room Air 09/04/23 15:42 09/04/23 17:37 Temperature 98.9 F Temperature Source Temporal Pulse Rate 130 H Respiratory Rate 19 H Respiratory Effort Respiratory Pattern Blood Pressure 101/61 Blood Pressure Mean 74 Pulse Ox 96 Oxygen Delivery Method Room Air Room Air Positive well nourished and well developed General Appearance ED: well developed and NAD HEENT Reports moist mucous membranes normocephalic and atraumatic Eyes PERRL and EOMs intact bilaterally Neck full ROM and supple Resp normal respiratory effort and clear to auscultation bilaterally Cardio regular rate, regular rhythm and no murmurs GI non-tender and non-distended Auscultation: normoactive bowel sounds Palpation: soft Back/Spine no CVA tenderness General Back: other FROM Extremity normal to inspection General Extremety ED: Negative for edema, pulses abnormal or tenderness General Extremity: Negative for edema or pulses abnormal Neuro oriented x3, CN's II-XII intact bilaterally and no sensory deficits noted Sensorium / Orientation: awake and alert Motor Exam: strength 5/5 throughout Skin no rashes or lesions noted and no wounds Sepsis Attestation Sepsis Alert: Yes Sepsis Attestation: Agree w/Sepsis Date exam was performed: 09/04/23 Time exam was performed: 17:30 Possible Source of Sepsis: Genitourinary and Other (line sepsis due to TPN) Sepsis Organ Dysfunction Criteria Present: SBP decrease of more than 40 mmHg (90 compared with 136 yesterday) and Creatinine > 2.0 mg/dL Supportive Findings: persistent tachycardia despite fever resolution Fluid Resuscitation Fluid resuscitation indicated?: Yes Fluid Resuscitation ordered: Lesser volume fluid bolus ordered Amount of fluid ordered: 1,500 Reason for lesser fluid bolus:: BP Responded to a lesser volume Sepsis Note Date exam was performed: 09/04/23 Time exam was performed: 18:06 Sepsis Attestation: Sepsis re-evaluation was performed Response to fluids: Fluid responsive hypotension (101/61; however, later SBP decreased to 80-90, so more IVFB ordered/given) MDM MDM MDM Narrative Medical decision making narrative: Here the patient does have a low-grade fever. He had an extensive workup yesterday including a CT of the abdomen/pelvis, showing good placement of both of his stents, and nothing acute. He does have left upper quadrant tenderness but his abdomen is fairly benign, and I see no obvious source of infection on his physical exam. He has risk for line sepsis because of the TPN, risk for urosepsis given the ureteral stents in place however his urinalysis was normal yesterday showing no indication of infection, he is in a assisted and certainly could have COVID, influenza, or any other highly communicable viral infection, we will do a chest x-ray to rule out pneumonia, and the rest of a hematologic septic workup and will repeat his urinalysis so that we can send his urine for culture to rule that out. In the meantime he will be given some fluids and Tylenol. Patient's white blood count went up to 12.3, predilection for neutrophils with an ANC of 11.2. Although his urinalysis was negative yesterday, today it is showing multiple indicators of infection. He is not having pain to suggest pyelonephritis, and he has bilateral stents that are in good place according to the CT yesterday. Therefore I do not think he needs emergent urologic surgery/procedure. IV Rocephin was started, after urine and blood were sent for cultures. After the initial 500 cc IV fluid bolus, his blood pressure is now lower, it has been trending low and now is 90 systolic so he is ordered another liter of fluid. His lactate is within normal limits. After the other liter his blood pressure is up 101/61. Systolic I saw was as low as 90. He is somnolent but airway is stable. Persistent tachycardia 130 despite getting his temperature down with Tylenol. Discussed with him and mother. They prefer to stay here if able. History & Record Review Additional record(s) reviewed:: Prior ED visit and Prior labs Lab Data Attestation: I reviewed the patient's lab results. Labs: Laboratory Results - last 24 hr 09/04/23 09/04/23 15:40 16:20 WBC 12.3 H RBC 3.59 L Hgb 9.5 L Hct 29.6 L MCV 82.5 MCH 26.5 L MCHC 32.1 RDW Std Deviation 41.2 RDW Coeff of Ajay 13.8 Plt Count 282 MPV 9.1 Immature Gran % (Auto) 0.900 Neut % (Auto) 91.4 H Lymph % (Auto) 3.4 L [place] % (Auto) 3.3 Eos % (Auto) 0.7 Baso % (Auto) 0.3 Absolute Neuts (auto) 11.2 H Absolute Lymphs (auto) 0.42 L Nucleated RBC % 0 Differential Comment SCANNED PT 15.6 H INR 1.2 APTT 26.4 Sodium 135 L Potassium 3.7 Chloride 101 Carbon Dioxide 24.0 Anion Gap 10 BUN 27 H Creatinine 2.25 H Est GFR (MDRD) Af Amer 41 L Est GFR (MDRD) Non-Af 34 L BUN/Creatinine Ratio 12.0 Glucose 169 H Lactic Acid 1.8 Calcium 8.9 Total Bilirubin 0.50 AST 13 L ALT 16 Alkaline Phosphatase 111 Total Protein 7.0 Albumin 2.5 L Globulin 4.5 H Albumin/Globulin Ratio 0.6 L Urine Color Yellow Urine Clarity Sl. Cloudy Urine pH 7.0 Ur Specific [place] 1.010 Urine Protein 30 H Urine Glucose (UA) Normal Urine Ketones Negative Urine Occult Blood 25 H Urine Nitrite Positive H Urine Bilirubin Negative Urine Urobilinogen Normal Ur Leukocyte Esterase 500 H Urine RBC 0 SEEN Urine WBC 5-10 SEEN Ur Squamous Epith Cells 0 SEEN Urine Bacteria 2+ Urine Mucus 0 SEEN Radiography Diagnostic Testing: Clinical Impression(s) from Imaging Studies Chest X-Ray 09/04/23 16:20 IMPRESSION: No active disease. Electronically Signed: Marcelo Gonzalez MD at 17:17 EST , Rhythm Strip Rhythm Strip: Sinus Tach Rate: 120 Ectopy: None EKG Initial EKG: Attestation: I personally reviewed and interpreted this EKG as follows: Interpretation: No Acute Injury Pattern and Sinus Tachycardia Management Discussion w/another healthcare provider: Hospitalist and Acupuncture Physician (Urology Dr. Ivan, who is okay with consultation if needed) Critical Care Time Critical Care Time: Yes Critical care time (excluding procedures): 30-74 minutes (32 min), Including time spent:, Discussing w/Patient &/or Family/Sales Incentive Analyst, Discussing w/Consultants, Arranging Admission or Transfer and Performing Direct Patient Care at Bedside Discharge Plan Dx/Rx/DC Orders Clinical Impression: DAMIAN (acute kidney injury), Primary malignant neoplasm of colorectal area with metastasis, Complicated UTI (urinary tract infection), Sepsis Disposition Disposition: [facility]
[2023-09-04 15:58] LABS: Absolute Lymphocyte Count 0.42 X10^3/uL (0.83-4.51); Absolute Neutrophil Count 11.2 X10^3/uL (2.0-7.7); Basophil# 0.04 X10^3/uL; Basophil% 0.3 % (0-1); Eosinophil# 0.08 X10^3/uL; Eosinophils% 0.7 % (0-5); Hematocrit 29.6 % (40-54); Hemoglobin 9.5 g/dL (13.0-16.5); Lymphocyte # 0.42 X10^3/ul (0.83-4.51); Lymphocyte % 3.4 % (19-41); Mean Corp Hgb Conc 32.1 g/dL (32-36); Mean Corpuscular Hgb 26.5 pg (27.0-32.0); Mean Corpuscular Volume 82.5 fL (80-94); Mean Platelet Vol. 9.1 fl (6.2-12.0); Monocyte# 0.41 X10^3/uL; Monocyte% 3.3 % (0-10); NRBC Flagged by Analyzer 0 % (0-5); Neutrophil # 11.23 X10^3/uL (2.7-7.7); Neutrophil % 91.4 % (47-70); POSITIVE DIFFERENTIAL YES; Platelet Count 282 K/mm3 (150-450); RBC Distribution Width CV 13.8 % (11.6-14.6); RBC Distribution Width SD 41.2 fl (35.1-43.9); Red Blood Count 3.59 M/mm3 (4.6-6.2); White Blood Count 12.3 K/mm3 (4.4-11.0)
[2023-09-04 16:00] LABS: Differential Indicated SCAN CRITERIA MET
[2023-09-04 16:01] LABS: Differential Comment SCANNED
[2023-09-04] MEDS: 0.9% Normal Saline (500mL Bag) 500 ML 999 ML IV (16:04)
[2023-09-04] MEDS: Acetaminophen 500 MG Tablet 1000 MG PO (16:04)
[2023-09-04 16:09] LABS: International Normalized Ratio 1.2; Prothrombin Time (Protime)PT. 15.6 SECONDS (11.7-14.9)
[2023-09-04 16:19] LABS: Lactic Acid 1.8 mmol/L (0.4-1.9)
[2023-09-04 16:20] LABS: Partial Thromboplast Time 26.4 Seconds (24.1-36.2)
--- NOTE | 2023-09-04 16:20 | RAD_ITS ---
STUDY: X-RAY CHEST REASON FOR EXAM: Male, 43 years old. fever TECHNIQUE: Single AP portable view of the chest. COMPARISON: None. FINDINGS: Right internal jugular chest port which is unchanged. The lungs are clear and expanded. There is no demonstrated pleural abnormality. Normal size heart. Normal mediastinum and diego. Normal visualized pulmonary arteries. Normal visualized aortic arch and descending thoracic aorta. Normal visualized thoracic spine. Normal visualized ribs, clavicles, and shoulders. There is no demonstrated abnormality of the visualized soft tissue structures of the upper abdomen. RAD/Chest 1 View (Portable) IMPRESSION: No active disease. Electronically Signed: Marcelo Gonzalez MD at 17:17 EST ,
[2023-09-04 16:26] LABS: ALB/GLOB Ratio 0.6 RATIO (0.9-2.4); AST(SGOT) 13 U/L (15-37); Alanine Aminotransfer ALT/SGPT 16 U/L (16-61); Albumin, Serum 2.5 g/dL (3.2-5.0); Alkaline Phosphatase 111 U/L (45-117); Anion Gap 10 (5-15); BUN 27 mg/dL (7-18); Calcium,Total 8.9 mg/dL (8.5-10.1); Chloride 101 mmol/L (98-107); Creatinine, Serum 2.25 mg/dL (0.70-1.30); EST Glomerular Filtration Rate 34 mL/min (>60); Est Glom Filt Rate - Afr Amer 41 mL/min (>60); Globulin 4.5 g/dL (2.2-4.2); Glucose 169 mg/dL (74-106); Potassium 3.7 mmol/L (3.5-5.1); Sodium Level 135 mmol/L (136-145)
[2023-09-04 16:27] LABS: Mucous, Urine 0 SEEN /hpf (<or=2+); Red Blood Cells-Urine 0 SEEN /hpf (0-5); Squamous Epithelial Cells - UA 0 SEEN /hpf (0-5)
[2023-09-04 16:32] LABS: Color, Urine Yellow (Yellow); Glucose, Dipstick Normal (Normal); Ketone-Dipstick Negative (Negative); Leukocyte Esterase-Dipstick 500 /ul (Negative); Nitrite-Dipstick Positive (Negative); Occult Blood-Urine 25 /ul (Negative); Protein-Dipstick 30 mg/dl (Negative); Urine Bilirubin Dipstick Negative (Negative); Urine Clarity Sl. Cloudy (Clear); Urine Urobilinogen Normal (Normal)
[2023-09-04 16:51] LABS: Bacteria 2+ /hpf (None Seen); White Blood Cells 5-10 SEEN /hpf (0-5)
[2023-09-04] MEDS: 0.9% Normal Saline (1000mL) 1,000 ML 999 ML IV ×3 (17:00→21:05)
[2023-09-04] MEDS: Ceftriaxone 1 GM/50 ML BAG IV (17:26)
--- NOTE | 2023-09-04 18:49 | HP.PCM.HOS_ITS ---
HPI - General General Date of Admission: 09/04/23 Date of Service: 09/04/23 Chief Complaint: Fever today. ED visit yesterday for abdominal pain and vomiting HPI Narrative ADAM VEGA, is a 43 M with complicated history of rectal cancer with obstruction and multiple surgeries, last one in August 2023 came to ED from extended care facility for fever today. Before that patient came yesterday with abdominal distention/pain and vomiting and had CT was done which shows fecal matter in residual colon with G-tube and colostomy. Patient had hydronephrosis and bilateral ureteric stent since all surgery done in [facility]. Today in the morning had a fever noted to be about 103 Fahrenheit in prison paper. In ED, patient was found hypotensive, tachycardic raising suspicion for sepsis. Patient on second liter of IV bolus given IV ceftriaxone. Started on IV Zosyn and admitted in ICU for for further management. Vitals, labs, x-ray and CT abdomen reviewed and discussed in assessment and plan. I talked to the patient's mother near the bedside and patient's power of collections attorney for health his brother on the phone in ED. 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 Neuropathy Obesity Port-A-Cath in place Seizures Home Medications cephalexin 500 mg capsule 500 mg PO Q12 #14 CAPSULES 06/21/22 [Rx Last Taken Unknown] atorvastatin 40 mg tablet 40 mg PO DAILY CHOLESTEROL 07/30/23 [History Last Taken Unknown] linagliptin 5 mg tablet (Tradjenta) 5 mg PO DAILY 07/30/23 [History Last Taken U nknown] morphine 30 mg tablet,extended release 30 mg PO Q12H PRN pain 07/30/23 [History Last Taken Unknown] oxybutynin chloride 5 mg tablet,extended release 24 hr 10 mg PO DAILY URINARY SPASMS 07/30/23 [History Last Taken Unknown] oxycodone 10 mg tablet 10 mg PO Q4H PRN pain 07/30/23 [History Last Taken Unknown] prochlorperazine maleate 10 mg tablet 10 mg PO Q6H PRN nausea 07/30/23 [History Last Taken Unknown] sennosides 8.6 mg-docusate sodium 50 mg tablet (Stool Softener-Laxative) 1 tab- cap PO BID PRN PRN constipation 07/30/23 [History Last Taken Unknown] capecitabine 150 mg tablet 150 mg PO BID 08/24/23 [History Last Taken Unknown] gabapentin 300 mg capsule 300 mg PO DAILY 08/24/23 [History Last Taken Unknown] lisinopril 10 mg tablet 10 mg PO DAILY 08/24/23 [History Last Taken Unknown] metformin 500 mg tablet 500 mg PO DAILY 08/24/23 [History Last Taken Unknown] semaglutide 1 mg/dose (4 mg/3 mL) subcutaneous pen injector (Ozempic) 1 mg subcut QWEEK 08/24/23 [History Last Taken Unknown] dronabinol 5 mg capsule 5 mg PO BID POOR APPETITE 09/04/23 [History Last Taken Unknown] ergocalciferol (vitamin D2) 1,250 mcg (50,000 unit) capsule (Drisdol) 50,000 unit PO QWEEK SUPPLEME 09/04/23 [History Last Taken Unknown] famotidine 20 mg tablet 20 mg PO BID INDIGESTION 09/04/23 [History Last Taken Unknown] mirtazapine 15 mg tablet 15 mg PO QHS DEPRESSION 09/04/23 [History Last Taken Unknown] multivitamin 1 tab PO DAILY SUPPLEMENT 09/04/23 [History Last Taken Unknown] ondansetron HCl 4 mg tablet 4 mg PO Q6H PRN N/V 09/04/23 [History Last Taken Unknown] trazodone 50 mg tablet 25 mg PO QHS INSOMNIA 09/04/23 [History Last Taken Unknown] Allergy/AdvReac Type Severity Reaction Status Date / Time naproxen AdvReac Other Verified 09/04/23 15:05 Family History Father CVA (cerebral vascular accident) Diabetes Agent orange exposure Aunt Colon cancer Grandmother Colon cancer Grandfather Diabetes Surgical History H/O ureteroscopy History of creation of ostomy History of incision and drainage History of laparoscopy Social History Smoking Status: Former smoker Tobacco: How many years used: 10 alcohol intake: current alcohol intake frequency: holidays/special occasions only substance use type: does not use ROS ROS Narrative Constitutional: Reports fatigue and weakness. High-grade fever. HEENT: Reports systems reviewed and no addt'l complaints, except as documented Respiratory/Chest: No acute shortness of breath or respiratory distress or wheezing. CVS: Denies chest pain or pressure. Gastrointestinal: Multiple surgeries in the abdomen. Had nausea and vomiting yesterday. Abdominal pain which is resolved after opening the G-tube cap. Abdominal distention mild. Genitourinary: Denies burning urination or new urinary tract symptoms. Urinary incontinence, chronic Musculoskeletal: Denies acute joint pain or limited range of motion. No acute injury Neurologic: Denies seizure-like symptoms. skin: No ulcer. No rash Endocrinology: Reports systems reviewed and no addt'l complaints, except as documented Hematologic/Lymphatic: Reports systems reviewed and no addt'l complaints, except as documented Rest 14 ROS are negative except as mentioned in HPI Vital Signs Vital Signs Vital Signs: 09/04/23 15:02 09/04/23 15:06 09/04/23 16:24 Temperature 100.5 F H 100.5 F H Temperature Source Oral Temporal Pulse Rate 134 H 134 H Respiratory Rate 20 H 16 Respiratory Effort Normal Respiratory Pattern Normal Blood Pressure 112/75 100/70 Blood Pressure Mean 87 80 Pulse Ox 93 96 Oxygen Delivery Method Room Air Room Air 09/04/23 15:42 09/04/23 17:37 Temperature 98.9 F Temperature Source Temporal Pulse Rate 130 H Respiratory Rate 19 H Respiratory Effort Respiratory Pattern Blood Pressure 101/61 Blood Pressure Mean 74 Pulse Ox 96 Oxygen Delivery Method Room Air Room Air Weight Weight: 170 lb Body Mass Index (BMI) 28.3 Physical Exam Narrative General: Looks lethargic, sick and very weak. Awake, and oriented x 3. HEENT: Atraumatic, PERRLA, EOMI, Normocephalic Oral: Oral mucosa dry. No Gingival or Mucosal Lesions/ Ulcerations Neck: Supple, No JVD, Negative Carotid Bruits Chest wall/Lungs: Air entry diminished in bilateral lung bases. No crepitation/rhonchi Cardiovascular: Sinus tachycardia, Normal S1, Normal S2, No M/G/R Abdomen: Bowel Sounds Present, Soft, Non Tender, distended. G-tube present. Left-sided colostomy with formed stool in the bag. Midline maurilio present. Wound VAC present. : No dysuria. No renal angle tenderness. No suprapubic tenderness. Extremities: No edema, Capillary Refill Less than 3 Seconds Skin: Wound VAC in abdominal wall. Wound in the back. Could not examine back because patient is sick and a hard time in rolling to one side Musculoskeletal: No Tenderness to Palpation of Joints or Extremities. Muscle strength 4+/5. Neurological: Cranial nerves II-XII grossly intact, DTR 2+/4. No acute focal neurological deficit. Psych/Mental Status: Flat affect. Results Lab / Micro Data 09/04/23 15:40 09/04/23 15:40 Labs: Laboratory Results - last 24 hr 09/04/23 15:40: WBC 12.3 H, RBC 3.59 L, Hgb 9.5 L, Hct 29.6 L, MCV 82.5, MCH 26.5 L, MCHC 32.1, RDW Std Deviation 41.2, RDW Coeff of Ajay 13.8, Plt Count 282, MPV 9.1, Immature Gran % (Auto) 0.900, Neut % (Auto) 91.4 H, Lymph % (Auto) 3.4 L, [place] % (Auto) 3.3, Eos % (Auto) 0.7, Baso % (Auto) 0.3, Absolute Neuts (auto) 11.2 H, Absolute Lymphs (auto) 0.42 L, Nucleated RBC % 0, Differential Comment SCANNED, PT 15.6 H, INR 1.2, APTT 26.4, Sodium 135 L, Potassium 3.7, Chloride 1 01, Carbon Dioxide 24.0, Anion Gap 10, BUN 27 H, Creatinine 2.25 H, Est GFR (MDRD) Af Amer 41 L, Est GFR (MDRD) Non-Af 34 L, BUN/Creatinine Ratio 12.0, Glucose 169 H, Lactic Acid 1.8, Calcium 8.9, Total Bilirubin 0.50, AST 13 L, ALT 16, Alkaline Phosphatase 111, Total Protein 7.0, Albumin 2.5 L, Globulin 4.5 H, Albumin/Globulin Ratio 0.6 L 09/04/23 16:20: Urine Color Yellow, Urine Clarity Sl. Cloudy, Urine pH 7.0, Ur Specific [place] 1.010, Urine Protein 30 H, Urine Glucose (UA) Normal, Urine Ketones Negative, Urine Occult Blood 25 H, Urine Nitrite Positive H, Urine Bilirubin Negative, Urine Urobilinogen Normal, Ur Leukocyte Esterase 500 H, Urine RBC 0 SEEN, Urine WBC 5-10 SEEN, Ur Squamous Epith Cells 0 SEEN, Urine Bacteria 2+, Urine Mucus 0 SEEN Micro: Microbiology 09/04/23 16:05 Mucosa - Nose SARS-CoV-2, Influenza & RSV (PCR) - Final Rhythm Strip Rhythm Strip: Sinus Tach Rate: 120 Ectopy: None Imaging Radiology Impression Chest X-Ray 09/04/23 16:20 IMPRESSION: No active disease. Electronically Signed: Marcelo Gonzalez MD at 17:17 EST , Assessment & Plan Assessment/Plan (1) Sepsis: QUALIFIERS: Sepsis type: sepsis due to unspecified organism Sepsis acute organ dysfunction status: with acute organ dysfunction Severe sepsis acute organ dysfunction type: acute renal failure Acute renal failure type: unspecified Severe sepsis shock status: without septic shock Qualified Code(s): A41.9 - Sepsis, unspecified organism; R65.20 - Severe sepsis without septic shock; N17.9 - Acute kidney failure, unspecified (2) Complicated UTI (urinary tract infection): (3) DAMIAN (acute kidney injury): PLAN: Plan This is 43-year-old gentleman with unfortunate history of colorectal cancer with multiple surgeries recently in the last few months admitted with high fever hypotension suggestive of sepsis. 1. Sepsis most likely due to genitourinary source: Patient is being admitted in ICU. Currently on his second liter of IV bolus normal saline. His blood pressure seen on the ED was less than 90 but not at seen the charting. Most recent blood pressure is in 90s on the second liter of IV fluid bolus. The patient presented with suspicion of sepsis with clinical indicators of due to high-grade fever, tachycardia, and leukocytosis with increased polymorphs and lymphopenia with acute sepsis-related organ dysfunction as evidenced by hypotensive currently responding to IV fluid. Patient on sepsis protocol with 30 mill per KG body weight and broad-spectrum IV antibiotic Zosyn. Sepsis ramona col followed with panculture. Senior Resident Care Director consulted. 2. Suspected complicated UTI and DAMIAN: Patient baseline creatinine was 1.3 on July 30, 2023. It increased to 1.3 to and the last week of August, 1.31 yesterday but today increased to 2.25. UA shows LE 500, WBC 5-10 cells, RBC 0 nitrite positive suggestive of UTI. On broad-spectrum IV antibiotic as mentioned above. IV fluid resuscitation. Monitor kidney function electrolytes. Patient had history of hydronephrosis with bilateral ureteric stent. Mild degree of bladder wall thickening on the CT scan. Urologist is consulted. 4. Colorectal cancer: Status post neoadjuvant chemoradiation and surgery: Patient had complicated surgery with removal of the rectal mass, possible end colostomy/Du pouch but exact anatomy of surgery unclear. CT abdomen/pelvis which was done yesterday on 09/03/2023 with IV contrast was initially reviewed and discussed with the surgeon. Shows fluid distention of the stomach with percutaneous PEG tube. Small bowel ostomy left anterior abdominal wall. Anastomosis in the midportion of the transverse colon with moderate to large fecal matter throughout the colon. Soft tissue prominence in region of rectum questionable rectal mass. Patient started on stool softeners senna S and MiraLAX. General surgery, Dr. Vera consulted. If this: Does not get cleared will need soapsuds enema through colostomy and. 4. Moderate acute protein calorie malnutrition due to colorectal cancer and s urgery: Patient has PEG tube. DVT prophylaxis high risk: Lovenox 30 mg subcu daily. Living will/advanced directive/end of life care: Patient does have living will or advanced directive. His brother on the phone is power of collections attorney for health. I talked to mother's in the ED and his brother on the phone. After discussion of benefits/risks procedures involved with full code, DNR CC arrest and DNR CC, the patient, his mother and his brother, POA all opted for full code. Patient does want artificial life support including intubation, tube feed, ventilator and/chest compression, central venous catheter, vasopressor and DC shock if needed Total time spent in [id number] encounter in discussion of advanced directive 17 minutes. Microbiology Past 72 Hours 09/04/23 16:05 Mucosa - Nose SARS-CoV-2, Influenza & RSV (PCR) - Final Laboratory Results 09/04/23 15:40: WBC 12.3 H, RBC 3.59 L, Hgb 9.5 L, Hct 29.6 L, MCV 82.5, MCH 26.5 L, MCHC 32.1, RDW Std Deviation 41.2, RDW Coeff of Ajay 13.8, Plt Count 282, MPV 9.1, Immature Gran % (Auto) 0.900, Neut % (Auto) 91.4 H, Lymph % (Auto) 3.4 L, [place] % (Auto) 3.3, Eos % (Auto) 0.7, Baso % (Auto) 0.3, Absolute Neuts (auto) 11.2 H, Absolute Lymphs (auto) 0.42 L, Nucleated RBC % 0, Differential Comment SCANNED, PT 15.6 H, INR 1.2, APTT 26.4, Sodium 135 L, Potassium 3.7, Chloride 101, Carbon Dioxide 24.0, Anion Gap 10, BUN 27 H, Creatinine 2.25 H, Est GFR (MDRD) Af Amer 41 L, Est GFR (MDRD) Non-Af 34 L, BUN/Creatinine Ratio 12.0, Glucose 169 H, Lactic Acid 1.8, Calcium 8.9, Total Bilirubin 0.50, AST 13 L, ALT 16, Alkaline Phosphatase 111, Total Protein 7.0, Albumin 2.5 L, Globulin 4.5 H, Albumin/Globulin Ratio 0.6 L 09/04/23 16:20: Urine Color Yellow, Urine Clarity Sl. Cloudy, Urine pH 7.0, Ur S pecific [place] 1.010, Urine Protein 30 H, Urine Glucose (UA) Normal, Urine Ketones Negative, Urine Occult Blood 25 H, Urine Nitrite Positive H, Urine Bilirubin Negative, Urine Urobilinogen Normal, Ur Leukocyte Esterase 500 H, Urine RBC 0 SEEN, Urine WBC 5-10 SEEN, Ur Squamous Epith Cells 0 SEEN, Urine Bacteria 2+, Urine Mucus 0 SEEN Charges/Coding Visit Charges Inpatient E&M: 95785 Init Hosp L3 Procedures Hospitalists Procedures: 55253 Advncd Care Plan 30 Min
--- NOTE | 2023-09-04 19:56 | ED.RN ---
PT BROTHER MALIK CALLS TO CHECK ON PATIENT, THIS RN RECEIVES VERBAL COMMUNICATION FROM PATIENT TO SPEAK TO THE BROTHER VIA PHONE CALL. BROTHER INFORMED OF ADMISSION DX. BROTHER THANKS THIS RN FOR TIME AND HANGS UP THE PHONE.
--- NOTE | 2023-09-04 21:03 | SEPSISATNOTE ---
Sepsis Attestation Sepsis Alert: Yes Sepsis Attestation: Agree w/Sepsis Date exam was performed: 09/04/23 Time exam was performed: 19:00 Possible Source of Sepsis: Genitourinary Sepsis Organ Dysfunction Criteria Present: SBP < 90 mmHg or MAP < 65 mmHg and Creatinine > 2.0 mg/dL Supportive Findings: Leukocytosis of 12.3 POA, Fever of 100.5 degrees Fahrenheit with Tachycardia of ~134 bpm present on admission and elevated creatinine of 2.25 mg/dL POA (up from his baseline creatinine of 1.3 mg/dL on July 30, 2023). Fluid Resuscitation Fluid resuscitation indicated?: Yes Fluid Resuscitation ordered: 30 ml/kg fluid bolus ordered Amount of fluid ordered: 3 Sepsis Note Date exam was performed: 09/04/23 Time exam was performed: 23:30 Sepsis Attestation: Sepsis re-evaluation was performed Response to fluids: Fluid responsive hypotension
[2023-09-04] MEDS: Piperacil/Tazobactam 3.375 GM in 0.9% Normal Saline (50mL MB+) 50 ML IV (21:09)
[2023-09-04] MEDS: Enoxaparin 30 MG/0.3 ML Syringe SC (21:10)
[2023-09-04 21:22] LABS: CPK Total, Creatine Kinase 19 U/L (39-308); Magnesium 1.7 mg/dL (1.6-2.6); Phosphorus 5.3 mg/dL (2.5-4.9)
[2023-09-04] MEDS: 0.9% Saline Lock 10 ML Syringe IV (22:06)
[2023-09-04] MEDS: fentaNYL 100 MCG/2 ML Ampul 25 MCG IV (22:06)
[2023-09-04 22:25] LABS: M R Staph aureus DNA By PCR Negative (Negative); Probe Check PASS; Specimen Processing Control PASS
[2023-09-04] MEDS: Acetaminophen 325 MG Tablet 650 MG PO (23:14)
[2023-09-05] VITALS (24 sets, daily range): BP systolic 91–164; BP diastolic 61–89; PULSE 79–131; RESP 18–93; TEMP 38–39.4; O2SAT 93–99; BMI 28.8
[2023-09-05 01:45] LABS: Absolute Lymphocyte Count 0.55 X10^3/uL (0.83-4.51); Basophil# 0.08 X10^3/uL; Basophil% 0.5 % (0-1); Hematocrit 28.2 % (40-54); Hemoglobin 8.9 g/dL (13.0-16.5); Lymphocyte # 0.55 X10^3/ul (0.83-4.51); Lymphocyte % 3.3 % (19-41); Mean Corp Hgb Conc 31.6 g/dL (32-36); Mean Corpuscular Hgb 26.3 pg (27.0-32.0); Mean Corpuscular Volume 83.4 fL (80-94); Mean Platelet Vol. 9.4 fl (6.2-12.0); Monocyte# 0.86 X10^3/uL; Monocyte% 5.2 % (0-10); NRBC Flagged by Analyzer 0 % (0-5); Neutrophil # 14.99 X10^3/uL (2.7-7.7); Neutrophil % 89.9 % (47-70); POSITIVE DIFFERENTIAL YES; POSITIVE MORPHOLOGY YES; Platelet Count 328 K/mm3 (150-450); RBC Distribution Width CV 14.1 % (11.6-14.6); RBC Distribution Width SD 42.7 fl (35.1-43.9); Red Blood Count 3.38 M/mm3 (4.6-6.2); White Blood Count 16.7 K/mm3 (4.4-11.0)
--- NOTE | 2023-09-05 01:46 | NURSING ---
pt arrived to unit w/ R chest port accessed. When Cleo BURGESS attempted to draw blood from port, RN unsuccessful. This RN also attempted to draw blood from pt's port, unsuccessful despite having pt sit up and lift arm over head. Port un-accessed @ 0100 by this RN w/ hopes to reaccess and obtain a blood return. This RN attempted reaccess x2 with no success. Akash Hyman RN attmepted access x1, able to access port but port continues w/o blood return. This RN called lab at this time to have pt's labs drawn.
[2023-09-05 01:54] LABS: Differential Indicated SCAN CRITERIA MET
[2023-09-05 02:12] LABS: ALB/GLOB Ratio 0.5 RATIO (0.9-2.4); AST(SGOT) 10 U/L (15-37); Alanine Aminotransfer ALT/SGPT 12 U/L (16-61); Albumin, Serum 2.1 g/dL (3.2-5.0); Alkaline Phosphatase 101 U/L (45-117); Anion Gap 9 (5-15); BUN 29 mg/dL (7-18); BUN/Creat Ratio 13.4 RATIO (10-20); Calcium,Total 8.4 mg/dL (8.5-10.1); Chloride 105 mmol/L (98-107); Creatinine, Serum 2.16 mg/dL (0.70-1.30); EST Glomerular Filtration Rate 36 mL/min (>60); Est Glom Filt Rate - Afr Amer 43 mL/min (>60); Estimated Creatinine Clearance 43.04 ml/min; Globulin 4.5 g/dL (2.2-4.2); Glucose 194 mg/dL (74-106); Potassium 4.1 mmol/L (3.5-5.1); Protein, Total 6.6 g/dL (6.4-8.2); Sodium Level 137 mmol/L (136-145)
[2023-09-05 02:25] LABS: Lactic Acid 1.6 mmol/L (0.4-1.9)
[2023-09-05 02:55] LABS: Differential Comment SCANNED
[2023-09-05] MEDS: Piperacil/Tazobactam 3.375 GM in 0.9% Normal Saline (50mL MB+) 50 ML IV ×3 (05:04→20:17)
[2023-09-05] MEDS: Acetaminophen 325 MG Tablet 650 MG PO ×2 (05:20→20:00)
--- NOTE | 2023-09-05 09:00 | RAD_ITS ---
STUDY: X-RAY - ABDOMEN/PELVIS REASON FOR EXAM: Male, 43 years old. Flank pain and fever TECHNIQUE: Two AP supine views of the abdomen and pelvis. COMPARISON: CT from 09/03/2023 FINDINGS: Normal visualized lung bases. PEG tube noted in satisfactory position, there are also stable bilateral JJ stents. Distended air-filled loops of small and large bowel throughout the abdomen consistent with ileus. There is retained stool in the transverse and proximal descending colon. There is no demonstrated free abdominal air. The visualized liver, spleen and kidneys are grossly normal in size and morphology. Normal soft tissue structures. Normal visualized osseous structures. RAD/Abdomen Single View (Portable) IMPRESSION: Persistent ileus Retained stool in the distal transverse and proximal descending colon Stable appearance of the PEG tube, and bilateral JJ stents Electronically Signed: Stewart Pratt MD at 9:46 EST ,
--- NOTE | 2023-09-05 09:53 | PCM.PN.HOSP ---
Subjective Subjective Doing well, feels better than when he came in yesterday. Objective Data Objective Data Vital Signs: Vital Signs Temp Pulse Resp BP Pulse Ox O2 Del Method 101.1 F H 110 H 29 H 96/78 96 Room Air 09/05/23 07:00 09/05/23 07:00 09/05/23 07:00 09/05/23 07:00 09/05/23 09:23 09/05/23 09:23 Oxygen Delivery Method Room Air Weight: 173 lb 1.006 oz Body Mass Index (BMI) 28.8 Intake & Output: Intake and Output for Last 24 Hours 09/04/23 09/05/23 09/06/23 03:59 03:59 03:59 Intake Total 3660 / 3660 Output Total 1100 / 1100 825 / 825 Balance 2560 / 2560 -825 / -825 Medical Nutrition Assessment Dietitian: Malnutrition Criteria Met Start: 09/05/23 09:32 Freq: Status: Active Protocol: Document 09/05/23 09:32 SLA (Rec: 09/05/23 09:32 SLA Desktop) Nutrition Malnutrition Evidence of Malnutrition Exists Yes Malnutrition (severe): Chronic Evidenced By Suboptimal Energy Intake ( Severe),Weight Loss (Severe) Intake Problem Increased Nutrient Needs (specify) Etiology protein r/t skin status Signs/Symptoms as evidenced by need for wound vac to abd wall and PI coccyx Status Active Problem Inadequate Oral Intake Etiology related to acute illness Signs/Symptoms as evidenced by NPO status Status Active Problem Recommendation Dietitian Recommendations/Changes As medically able, rec MATI to Consistent CHO w/ 4 oz glucerna shake tid w/ meals As medically able, rec Josemanuel bid to help w/ wound healing Lab / Micro Data 09/05/23 01:35 09/05/23 01:35 Labs: Laboratory Results - last 24 hr 09/04/23 15:40: WBC 12.3 H, RBC 3.59 L, Hgb 9.5 L, Hct 29.6 L, MCV 82.5, MCH 26.5 L, MCHC 32.1, RDW Std Deviation 41.2, RDW Coeff of Ajay 13.8, Plt Count 282, MPV 9.1, Immature Gran % (Auto) 0.900, Neut % (Auto) 91.4 H, Lymph % (Auto) 3.4 L, [place] % (Auto) 3.3, Eos % (Auto) 0.7, Baso % (Auto) 0.3, Absolute Neuts (auto) 11.2 H, Absolute Lymphs (auto) 0.42 L, Nucleated RBC % 0, Differential Comment SCANNED, PT 15.6 H, INR 1.2, APTT 26.4, Sodium 135 L, Potassium 3.7, Chloride 101, Carbon Dioxide 24.0, Anion Gap 10, BUN 27 H, Creatinine 2.25 H, Est GFR (MDRD) Af Amer 41 L, Est GFR (MDRD) Non-Af 34 L, BUN/Creatinine Ratio 12.0, Glucose 169 H, Lactic Acid 1.8, Calcium 8.9, Phosphorus 5.3 H, Magnesium 1.7, Total Bilirubin 0.50, AST 13 L, ALT 16, Alkaline Phosphatase 111, Total Creatine Kinase 19 L, Total Protein 7.0, Albumin 2.5 L, Globulin 4.5 H, Albumin/Globulin Ratio 0.6 L 09/04/23 16:20: Urine Color Yellow, Urine Clarity Sl. Cloudy, Urine pH 7.0, Ur Specific [place] 1.010, Urine Protein 30 H, Urine Glucose (UA) Normal, Urine Ketones Negative, Urine Occult Blood 25 H, Urine Nitrite Positive H, Urine Bilirubin Negative, Urine Urobilinogen Normal, Ur Leukocyte Esterase 500 H, Urine RBC 0 SEEN, Urine WBC 5-10 SEEN, Ur Squamous Epith Cells 0 SEEN, Urine Bacteria 2+, Urine Mucus 0 SEEN 09/04/23 21:05: MRSA (PCR) Negative 09/05/23 01:35: WBC 16.7 H, RBC 3.38 L, Hgb 8.9 L, Hct 28.2 L, MCV 83.4, MCH 26.3 L, MCHC 31.6 L, RDW Std Deviation 42.7, RDW Coeff of Ajay 14.1, Plt Count 328, MPV 9.4, Immature Gran % (Auto) 1.100 H, Neut % (Auto) 89.9 H, Lymph % (Auto) 3.3 L, [place] % (Auto) 5.2, Eos % (Auto) 0.0, Baso % (Auto) 0.5, Absolute Neuts (auto) 15.0 H, Absolute Lymphs (auto) 0.55 L, Nucleated RBC % 0, Differential Comment SCANNED, Sodium 137, Potassium 4.1, Chloride 105, Carbon Dioxide 23.0, Anion Gap 9, BUN 29 H, Creatinine 2.16 H, Estim Creat Clear Calc 43.04, Est GFR (MDRD) Af Amer 43 L, Est GFR (MDRD) Non-Af 36 L, BUN/Creatinine Ratio 13.4, Glucose 194 H, Lactic Acid 1.6, Calcium 8.4 L, Total Bilirubin 0.60, AST 10 L, ALT 12 L, Alkaline Phosphatase 101, Total Protein 6.6, Albumin 2.1 L, Globulin 4.5 H, Albumin/Globulin Ratio 0.5 L Micro: Microbiology 09/04/23 23:25 Stool C. difficile GDH Antigen & Toxins - Final Toxigenic C. difficile 09/04/23 23:25 Stool Clostridioides difficile (PCR) - Final 09/04/23 15:40 Blood Culture (Wb) - Chest Blood Culture - Preliminary 09/04/23 17:15 Blood Culture (Wb) - Anticubital Left Blood Culture - Preliminary 09/04/23 16:05 Mucosa - Nose SARS-CoV-2, Influenza & RSV (PCR) - Final Radiography Diagnostic Testing: Radiology Impression Chest X-Ray 09/04/23 16:20 IMPRESSION: No active disease. Electronically Signed: Marcelo Gonzalez MD at 17:17 EST , KUB X-Ray 09/05/23 09:00 IMPRESSION: Persistent ileus Retained stool in the distal transverse and proximal descending colon Stable appearance of the PEG tube, and bilateral JJ stents Electronically Signed: Stewart Pratt MD at 9:46 EST , Rhythm Strip Rhythm Strip: Sinus Tach Rate: 120 Ectopy: None Physical Exam Narrative General: Alert, Oriented x3, Cooperative, No apparent distress HEENT: Atraumatic, PERRLA, EOMI, Normocephalic Oral: Moist Mucosa Neck: Supple, No JVD Lungs: Diminished, Normal air movement, No rhonchi, No wheeze, No rales Cardiovascular: Tachycardic, Regular Rhythm, Normal S1, Normal S2, No murmurs Abdomen: Soft, Non Tender, mildly distended, No Hepato-splenomegaly, colostomy Extremities: No edema, Capillary Refill Less than 3 Seconds Skin: No rashes, No breakdown Musculoskeletal: No Tenderness to Palpation of Joints or Extremities Neurological: No focal neurological deficits, Motor Exam 5/5 strength throughout, Sensory exam intact to light touch and pain Psych/Mental Status: Flat Assessment & Plan Assessment/Plan (1) Sepsis: QUALIFIERS: Sepsis type: sepsis due to unspecified organism Sepsis acute organ dysfunction status: with acute organ dysfunction Severe sepsis acute organ dysfunction type: acute renal failure Acute renal failure type: unspecified Severe sepsis shock status: without septic shock Qualified Code(s): A41.9 - Sepsis, unspecified organism; R65.20 - Severe sepsis without septic shock; N17.9 - Acute kidney failure, unspecified (2) Complicated UTI (urinary tract infection): (3) DAMIAN (acute kidney injury): PLAN: Plan 1. Sepsis secondary to UTI versus C. difficile/DAMIAN ? His C. difficile test came back positive but his UA is also consistent with a UTI ? Will continue with p.o. vancomycin as well as IV Zosyn pending urine cultures ? Continue with IV fluids ? He does feel better today, will continue to monitor his renal function as well as his electrolytes ? Does have a history of hydronephrosis with bilateral stents so urology was consulted by the admitting physician 2. Rectal cancer ? Had neoadjuvant chemoradiation and surgery he had a rectal mass removed and an end colostomy/Du's pouch ? Surgery was done at [facility], still having some constipation so general surgery was consulted, appreciate their assistance 3. Moderate protein calorie malnutrition secondary to colorectal cancer and surgery ? Continue with tube feeds via PEG tube ? Consult dietitian DVT: Lovenox Charges/Coding Visit Charges Inpatient E&M: 39901 [facility] Hosp L2
--- NOTE | 2023-09-05 10:36 | EX.PCM.CONCC ---
Assessment & Plan Assessment/Plan (1) Sepsis: QUALIFIERS: Sepsis type: sepsis due to unspecified organism Sepsis acute organ dysfunction status: with acute organ dysfunction Severe sepsis acute organ dysfunction type: acute renal failure Acute renal failure type: unspecified Severe sepsis shock status: without septic shock Qualified Code(s): A41.9 - Sepsis, unspecified organism; R65.20 - Severe sepsis without septic shock; N17.9 - Acute kidney failure, unspecified PLAN: Plan #Sepsis #C.diff colitis #UTI #DAMIAN +/- CKD #Metastatic colon cancer on chemotherapy -SP multiple fluid boluses; PRN NEpi to keep MAP > 65; will consider stress dose steroids -Cont emp IV Abx; F/U Cx -Cont PO vancomycin given C.diff results -F/U additional surgery & urology recommendations but underlying issues appear to be improving -Excellent UOP; cont gentle IVF; strict I/Os; replace lytes as indicated PO diet Heparin Guarded prognosis CCT: 60 min The entirety of this encounter was completed via telemedicine. HPI Consult Data Date of Consult: 09/05/23 HPI Narrative Reason for Consultation: Sepsis HPI Narrative: 43Y M PMH rectal cancer sp resection/chemo/radiation in 2021 but with recurrence and finding of mets to the stomach who was restarted on chemo 07/27 but has subsequently developed complications including severe ileus vs bowel obstruction requiring colostomy & PEG earlier in August and who was admitted yesterday evening with abd discomfort/vomiting & fever for 1-2 days. Multiple recent medical issues including hydronephrosis and bilateral ureteric stent with surgery done at OSH ([facility]). He was unable to complete last dose of chemo scheduled for 08/10 and is next dose was to be tomorrow 09/06. CT imaging as documented in H&P was reviewed by surgery and urology also consulted yesterday. He was admitted to the ICU due to hypotension and sepsis and critical care consulted this morning for on-going evaluation and management recommendations. Pt is feeling better this morning and currently denies N/V. He still has some mild abd discomfort. Denies recent fevers/chills/sweats/cough/SOb/chest pain. He is passing gas and has stool in his colostomy. He is able to eat and drink and has not been using PEG tube for feeding. [facility] Medical History Abnormal colonoscopy Anxiety and depression Diabetes History of flexible sigmoidoscopy Hyperlipemia Malignant neoplasm of colorectal area with metastasis Monoallelic mutation of MIK gene Neuropathy Obesity Port-A-Cath in place Seizures Home Medications cephalexin 500 mg capsule 500 mg PO Q12 #14 CAPSULES 06/21/22 [Rx Last Taken Unknown] atorvastatin 40 mg tablet 40 mg PO DAILY CHOLESTEROL 07/30/23 [History Last Taken Unknown] linagliptin 5 mg tablet (Tradjenta) 5 mg PO DAILY 07/30/23 [History Last Taken Unknown] morphine 30 mg tablet,extended release 30 mg PO Q12H PRN pain 07/30/23 [History Last Taken Unknown] oxybutynin chloride 5 mg tablet,extended release 24 hr 10 mg PO DAILY URINARY SPASMS 07/30/23 [History Last Taken Unknown] oxycodone 10 mg tablet 10 mg PO Q4H PRN pain 07/30/23 [History Last Taken Unknown] prochlorperazine maleate 10 mg tablet 10 mg PO Q6H PRN nausea 07/30/23 [History Last Taken Unknown] sennosides 8.6 mg-docusate sodium 50 mg tablet (Stool Softener-Laxative) 1 tab-cap PO BID PRN PRN constipation 07/30/23 [History Last Taken Unknown] capecitabine 150 mg tablet 150 mg PO BID 08/24/23 [History Last Taken Unknown] gabapentin 300 mg capsule 300 mg PO DAILY 08/24/23 [History Last Taken Unknown] lisinopril 10 mg tablet 10 mg PO DAILY 08/24/23 [History Last Taken Unknown] metformin 500 mg tablet 500 mg PO DAILY 08/24/23 [History Last Taken Unknown] semaglutide 1 mg/dose (4 mg/3 mL) subcutaneous pen injector (Ozempic) 1 mg subcut QWEEK 08/24/23 [History Last Taken Unknown] dronabinol 5 mg capsule 5 mg PO BID POOR APPETITE 09/04/23 [History Last Taken Unknown] ergocalciferol (vitamin D2) 1,250 mcg (50,000 unit) capsule (Drisdol) 50,000 unit PO QWEEK SUPPLEME 09/04/23 [History Last Taken Unknown] famotidine 20 mg tablet 20 mg PO BID INDIGESTION 09/04/23 [History Last Taken Unknown] mirtazapine 15 mg tablet 15 mg PO QHS DEPRESSION 09/04/23 [History Last Taken Unknown] multivitamin 1 tab PO DAILY SUPPLEMENT 09/04/23 [History Last Taken Unknown] ondansetron HCl 4 mg tablet 4 mg PO Q6H PRN N/V 09/04/23 [History Last Taken Unknown] trazodone 50 mg tablet 25 mg PO QHS INSOMNIA 09/04/23 [History Last Taken Unknown] Allergy/AdvReac Type Severity Reaction Status Date / Time naproxen AdvReac Other Verified 09/04/23 15:05 Family History Father CVA (cerebral vascular accident) Diabetes Agent orange exposure Aunt Colon cancer Grandmother Colon cancer Grandfather Diabetes Surgical History H/O ureteroscopy History of creation of ostomy History of incision and drainage History of laparoscopy Social History Smoking Status: Former smoker Tobacco: How many years used: 10 alcohol intake: current alcohol intake frequency: holidays/special occasions only substance use type: does not use Physical Exam Narrative General: Well developed, chronically ill; in no distress HEENT: anicteric Sclera, nl nose; supple neck, no masses Cardiovascular: Tachy; S1/S2; No rubs, gallops; no displaced PM Respiratory: diminished; no crackles, wheezes, or rhonchi Abdominal: midline incision with wound vac, + colostomy, + PEG; + BS x 4; No Hepatosplenomegaly Extremities: Warm, well perfused; No clubbing, cyanosis; capillary refill < 2 sec Skin: intact, no rashes Neurological: A&Ox4; no gross deficits appreciated Medical Records Data Medical Nutrition Assessment Dietitian: Malnutrition Criteria Met Start: 09/05/23 09:32 Freq: Status: Active Protocol: Document 09/05/23 09:32 SLA (Rec: 09/05/23 09:32 [facility] Desktop) Nutrition Malnutrition Evidence of Malnutrition Exists Yes Malnutrition (severe): Chronic Evidenced By Suboptimal Energy Intake ( Severe),Weight Loss (Severe) Intake Problem Increased Nutrient Needs (specify) Etiology protein r/t skin status Signs/Symptoms as evidenced by need for wound vac to abd wall and PI coccyx Status Active Problem Inadequate Oral Intake Etiology related to acute illness Signs/Symptoms as evidenced by NPO status Status Active Problem Recommendation Dietitian Recommendations/Changes As medically able, rec MATI to Consistent CHO w/ 4 oz glucerna shake tid w/ meals As medically able, rec Josemanuel bid to help w/ wound healing Lab / Micro Data 09/05/23 01:35 09/05/23 01:35 Labs: Laboratory Results - last 24 hr 09/04/23 15:40: WBC 12.3 H, RBC 3.59 L, Hgb 9.5 L, Hct 29.6 L, MCV 82.5, MCH 26.5 L, MCHC 32.1, RDW Std Deviation 41.2, RDW Coeff of Ajay 13.8, Plt Count 282, MPV 9.1, Immature Gran % (Auto) 0.900, Neut % (Auto) 91.4 H, Lymph % (Auto) 3.4 L, [place] % (Auto) 3.3, Eos % (Auto) 0.7, Baso % (Auto) 0.3, Absolute Neuts (auto) 11.2 H, Absolute Lymphs (auto) 0.42 L, Nucleated RBC % 0, Differential Comment SCANNED, PT 15.6 H, INR 1.2, APTT 26.4, Sodium 135 L, Potassium 3.7, Chloride 101, Carbon Dioxide 24.0, Anion Gap 10, BUN 27 H, Creatinine 2.25 H, Est GFR (MDRD) Af Amer 41 L, Est GFR (MDRD) Non-Af 34 L, BUN/Creatinine Ratio 12.0, Glucose 169 H, Lactic Acid 1.8, Calcium 8.9, Phosphorus 5.3 H, Magnesium 1.7, Total Bilirubin 0.50, AST 13 L, ALT 16, Alkaline Phosphatase 111, Total Creatine Kinase 19 L, Total Protein 7.0, Albumin 2.5 L, Globulin 4.5 H, Albumin/Globulin Ratio 0.6 L 09/04/23 16:20: Urine Color Yellow, Urine Clarity Sl. Cloudy, Urine pH 7.0, Ur Specific [place] 1.010, Urine Protein 30 H, Urine Glucose (UA) Normal, Urine Ketones Negative, Urine Occult Blood 25 H, Urine Nitrite Positive H, Urine Bilirubin Negative, Urine Urobilinogen Normal, Ur Leukocyte Esterase 500 H, Urine RBC 0 SEEN, Urine WBC 5-10 SEEN, Ur Squamous Epith Cells 0 SEEN, Urine Bacteria 2+, Urine Mucus 0 SEEN 09/04/23 21:05: MRSA (PCR) Negative 09/05/23 01:35: WBC 16.7 H, RBC 3.38 L, Hgb 8.9 L, Hct 28.2 L, MCV 83.4, MCH 26.3 L, MCHC 31.6 L, RDW Std Deviation 42.7, RDW Coeff of Ajay 14.1, Plt Count 328, MPV 9.4, Immature Gran % (Auto) 1.100 H, Neut % (Auto) 89.9 H, Lymph % (Auto) 3.3 L, [place] % (Auto) 5.2, Eos % (Auto) 0.0, Baso % (Auto) 0.5, Absolute Neuts (auto) 15.0 H, Absolute Lymphs (auto) 0.55 L, Nucleated RBC % 0, Differential Comment SCANNED, Sodium 137, Potassium 4.1, Chloride 105, Carbon Dioxide 23.0, Anion Gap 9, BUN 29 H, Creatinine 2.16 H, Estim Creat Clear Calc 43.04, Est GFR (MDRD) Af Amer 43 L, Est GFR (MDRD) Non-Af 36 L, BUN/Creatinine Ratio 13.4, Glucose 194 H, Lactic Acid 1.6, Calcium 8.4 L, Total Bilirubin 0.60, AST 10 L, ALT 12 L, Alkaline Phosphatase 101, Total Protein 6.6, Albumin 2.1 L, Globulin 4.5 H, Albumin/Globulin Ratio 0.5 L Micro: Microbiology 09/04/23 23:25 Stool C. difficile GDH Antigen & Toxins - Final Toxigenic C. difficile 09/04/23 23:25 Stool Clostridioides difficile (PCR) - Final 09/04/23 15:40 Blood Culture (Wb) - Chest Blood Culture - Preliminary 09/04/23 17:15 Blood Culture (Wb) - Anticubital Left Blood Culture - Preliminary 09/04/23 16:05 Mucosa - Nose SARS-CoV-2, Influenza & RSV (PCR) - Final Rhythm Strip Rhythm Strip: Sinus Tach Rate: 120 Ectopy: None Imaging Radiology Impression Chest X-Ray 09/04/23 16:20 IMPRESSION: No active disease. Electronically Signed: Marcelo Gonzalez MD at 17:17 EST , KUB X-Ray 09/05/23 09:00 IMPRESSION: Persistent ileus Retained stool in the distal transverse and proximal descending colon Stable appearance of the PEG tube, and bilateral JJ stents Electronically Signed: Stewart Pratt MD at 9:46 EST ,
[2023-09-05] MEDS: Vancomycin 125 MG/5 ML Susp PO.SYRINGE PO ×2 (10:38→18:57)
[2023-09-05] MEDS: Polyethylene Glycol 3350 17 GM PACKET PO (10:39)
[2023-09-05] MEDS: Senna/Docusate Sodium 1 Tablet 2 TABLET PO ×2 (10:39→20:22)
--- NOTE | 2023-09-05 11:06 | EX.PCM.CON.S ---
Assessment & Plan Assessment/Plan (1) Sepsis: QUALIFIERS: Sepsis type: sepsis due to unspecified organism Sepsis acute organ dysfunction status: with acute organ dysfunction Severe sepsis acute organ dysfunction type: acute renal failure Acute renal failure type: unspecified Severe sepsis shock status: without septic shock Qualified Code(s): A41.9 - Sepsis, unspecified organism; R65.20 - Severe sepsis without septic shock; N17.9 - Acute kidney failure, unspecified (2) Complicated UTI (urinary tract infection): (3) C. difficile colitis: PLAN: Plan The patient presented to the emergency room septic. He was found to have a UTI. He was then admitted to the ICU and then found to have positive C. difficile. The patient is not having any abdominal pain. I palpated his abdomen appears soft and nontender. There is no guarding. He is febrile. Vancomycin was started this morning after the positive result. Continue Zosyn. Patient also has a UTI and has double-J stents in place. I recommended that the patient have a gentle 500 cc enema through his colostomy to encourage the thickened impacted stool to pass. I have also asked them to turn his G-tube to venting and place it to gravity. I have also asked that he be allowed to have ice chips. At this time we will continue continue to observe. Alex Vera MD Pager: [facility] [address] [place] [address], [address] [place] [address] Office: HPI Consult Data Date of Consult: 09/05/23 HPI Narrative HPI Narrative: ADAM VEGA, is a 43 M who presents with fever from his [facility]. He was in the emergency room the day prior and CT scan was normal except for impacted stool in the transverse colon. He was sent back to his [facility] then started having fevers. He came back to the emergency room and was found to have acute kidney injury and increased white count he was admitted. Currently the patient is not complaining of any abdominal pain. He complains of no nausea or vomiting. He says that his only issue is the fever. The patient had diverting colostomy about a month ago in [place]. The patient still has his tumor in place. He is undergoing neoadjuvant chemo. [facility] Medical History Abnormal colonoscopy Anxiety and depression Diabetes History of flexible sigmoidoscopy Hyperlipemia Malignant neoplasm of colorectal area with metastasis Monoallelic mutation of MIK gene Neuropathy Obesity Port-A-Cath in place Seizures Home Medications cephalexin 500 mg capsule 500 mg PO Q12 #14 CAPSULES 06/21/22 [Rx Last Taken Unknown] atorvastatin 40 mg tablet 40 mg PO DAILY CHOLESTEROL 07/30/23 [History Last Taken Unknown] linagliptin 5 mg tablet (Tradjenta) 5 mg PO DAILY 07/30/23 [History Last Taken Unknown] morphine 30 mg tablet,extended release 30 mg PO Q12H PRN pain 07/30/23 [History Last Taken Unknown] oxybutynin chloride 5 mg tablet,extended release 24 hr 10 mg PO DAILY URINARY SPASMS 07/30/23 [History Last Taken Unknown] oxycodone 10 mg tablet 10 mg PO Q4H PRN pain 07/30/23 [History Last Taken Unknown] prochlorperazine maleate 10 mg tablet 10 mg PO Q6H PRN nausea 07/30/23 [History Last Taken Unknown] sennosides 8.6 mg-docusate sodium 50 mg tablet (Stool Softener-Laxative) 1 tab-cap PO BID PRN PRN constipation 07/30/23 [History Last Taken Unknown] capecitabine 150 mg tablet 150 mg PO BID 08/24/23 [History Last Taken Unknown] gabapentin 300 mg capsule 300 mg PO DAILY 08/24/23 [History Last Taken Unknown] lisinopril 10 mg tablet 10 mg PO DAILY 08/24/23 [History Last Taken Unknown] metformin 500 mg tablet 500 mg PO DAILY 08/24/23 [History Last Taken Unknown] semaglutide 1 mg/dose (4 mg/3 mL) subcutaneous pen injector (Ozempic) 1 mg subcut QWEEK 08/24/23 [History Last Taken Unknown] dronabinol 5 mg capsule 5 mg PO BID POOR APPETITE 09/04/23 [History Last Taken Unknown] ergocalciferol (vitamin D2) 1,250 mcg (50,000 unit) capsule (Drisdol) 50,000 unit PO QWEEK SUPPLEME 09/04/23 [History Last Taken Unknown] famotidine 20 mg tablet 20 mg PO BID INDIGESTION 09/04/23 [History Last Taken Unknown] mirtazapine 15 mg tablet 15 mg PO QHS DEPRESSION 09/04/23 [History Last Taken Unknown] multivitamin 1 tab PO DAILY SUPPLEMENT 09/04/23 [History Last Taken Unknown] ondansetron HCl 4 mg tablet 4 mg PO Q6H PRN N/V 09/04/23 [History Last Taken Unknown] trazodone 50 mg tablet 25 mg PO QHS INSOMNIA 09/04/23 [History Last Taken Unknown] Allergy/AdvReac Type Severity Reaction Status Date / Time naproxen AdvReac Other Verified 09/04/23 15:05 Family History Father CVA (cerebral vascular accident) Diabetes Agent orange exposure Aunt Colon cancer Grandmother Colon cancer Grandfather Diabetes Surgical History H/O ureteroscopy History of creation of ostomy History of incision and drainage History of laparoscopy Social History Smoking Status: Former smoker Tobacco: How many years used: 10 alcohol intake: current alcohol intake frequency: holidays/special occasions only substance use type: does not use ROS Constitutional Constitutional: Reports fever(s) Eyes Eyes: Denies blurry vision ENT HEENT: Denies abnormal hearing Cardiovascular Cardiovascular: Denies chest pain Respiratory/Chest Respiratory/Chest: Denies dyspnea Gastrointestinal Gastrointestinal: Denies abdominal pain, nausea or vomiting Genitourinary Genitourinary: Denies change in urinary stream Musculoskeletal Musculoskeletal: Denies abnormal gait Integumentary Integumentary: Denies jaundice Neurologic Neurologic: Denies abnormal gait Endocrine Endocrinology: Denies flushing Physical Exam Const alert, oriented x3 and no apparent distress HEENT normocephalic Eyes PERRL Resp normal respiratory effort Cardio Rate: regular rate Rhythm: regular rhythm GI soft to palpation, non-tender and non-distended Medical Records Data Medical Nutrition Assessment Dietitian: Malnutrition Criteria Met Start: 09/05/23 09:32 Freq: Status: Active Protocol: Document 09/05/23 09:32 SLA (Rec: 09/05/23 09:32 SLA Desktop) Nutrition Malnutrition Evidence of Malnutrition Exists Yes Malnutrition (severe): Chronic Evidenced By Suboptimal Energy Intake ( Severe),Weight Loss (Severe) Intake Problem Increased Nutrient Needs (specify) Etiology protein r/t skin status Signs/Symptoms as evidenced by need for wound vac to abd wall and PI coccyx Status Active Problem Inadequate Oral Intake Etiology related to acute illness Signs/Symptoms as evidenced by NPO status Status Active Problem Recommendation Dietitian Recommendations/Changes As medically able, rec MATI to Consistent CHO w/ 4 oz glucerna shake tid w/ meals As medically able, rec Josemanuel bid to help w/ wound healing Lab / Micro Data 09/05/23 01:35 09/05/23 01:35 Labs: Laboratory Results - last 24 hr 09/04/23 15:40: WBC 12.3 H, RBC 3.59 L, Hgb 9.5 L, Hct 29.6 L, MCV 82.5, MCH 26.5 L, MCHC 32.1, RDW Std Deviation 41.2, RDW Coeff of Ajay 13.8, Plt Count 282, MPV 9.1, Immature Gran % (Auto) 0.900, Neut % (Auto) 91.4 H, Lymph % (Auto) 3.4 L, [place] % (Auto) 3.3, Eos % (Auto) 0.7, Baso % (Auto) 0.3, Absolute Neuts (auto) 11.2 H, Absolute Lymphs (auto) 0.42 L, Nucleated RBC % 0, Differential Comment SCANNED, PT 15.6 H, INR 1.2, APTT 26.4, Sodium 135 L, Potassium 3.7, Chloride 101, Carbon Dioxide 24.0, Anion Gap 10, BUN 27 H, Creatinine 2.25 H, Est GFR (MDRD) Af Amer 41 L, Est GFR (MDRD) Non-Af 34 L, BUN/Creatinine Ratio 12.0, Glucose 169 H, Lactic Acid 1.8, Calcium 8.9, Phosphorus 5.3 H, Magnesium 1.7, Total Bilirubin 0.50, AST 13 L, ALT 16, Alkaline Phosphatase 111, Total Creatine Kinase 19 L, Total Protein 7.0, Albumin 2.5 L, Globulin 4.5 H, Albumin/Globulin Ratio 0.6 L 09/04/23 16:20: Urine Color Yellow, Urine Clarity Sl. Cloudy, Urine pH 7.0, Ur Specific [place] 1.010, Urine Protein 30 H, Urine Glucose (UA) Normal, Urine Ketones Negative, Urine Occult Blood 25 H, Urine Nitrite Positive H, Urine Bilirubin Negative, Urine Urobilinogen Normal, Ur Leukocyte Esterase 500 H, Urine RBC 0 SEEN, Urine WBC 5-10 SEEN, Ur Squamous Epith Cells 0 SEEN, Urine Bacteria 2+, Urine Mucus 0 SEEN 09/04/23 21:05: MRSA (PCR) Negative 09/05/23 01:35: WBC 16.7 H, RBC 3.38 L, Hgb 8.9 L, Hct 28.2 L, MCV 83.4, MCH 26.3 L, MCHC 31.6 L, RDW Std Deviation 42.7, RDW Coeff of Ajay 14.1, Plt Count 328, MPV 9.4, Immature Gran % (Auto) 1.100 H, Neut % (Auto) 89.9 H, Lymph % (Auto) 3.3 L, [place] % (Auto) 5.2, Eos % (Auto) 0.0, Baso % (Auto) 0.5, Absolute Neuts (auto) 15.0 H, Absolute Lymphs (auto) 0.55 L, Nucleated RBC % 0, Differential Comment SCANNED, Sodium 137, Potassium 4.1, Chloride 105, Carbon Dioxide 23.0, Anion Gap 9, BUN 29 H, Creatinine 2.16 H, Estim Creat Clear Calc 43.04, Est GFR (MDRD) Af Amer 43 L, Est GFR (MDRD) Non-Af 36 L, BUN/Creatinine Ratio 13.4, Glucose 194 H, Lactic Acid 1.6, Calcium 8.4 L, Total Bilirubin 0.60, AST 10 L, ALT 12 L, Alkaline Phosphatase 101, Total Protein 6.6, Albumin 2.1 L, Globulin 4.5 H, Albumin/Globulin Ratio 0.5 L Micro: Microbiology 09/04/23 23:25 Stool C. difficile GDH Antigen & Toxins - Final Toxigenic C. difficile 09/04/23 23:25 Stool Clostridioides difficile (PCR) - Final 09/04/23 15:40 Blood Culture (Wb) - Chest Blood Culture - Preliminary 09/04/23 17:15 Blood Culture (Wb) - Anticubital Left Blood Culture - Preliminary 09/04/23 16:05 Mucosa - Nose SARS-CoV-2, Influenza & RSV (PCR) - Final Rhythm Strip Rhythm Strip: Sinus Tach Rate: 120 Ectopy: None Imaging Radiology Impression Chest X-Ray 09/04/23 16:20 IMPRESSION: No active disease. Electronically Signed: Marcelo Gonzalez MD at 17:17 EST , KUB X-Ray 09/05/23 09:00 IMPRESSION: Persistent ileus Retained stool in the distal transverse and proximal descending colon Stable appearance of the PEG tube, and bilateral JJ stents Electronically Signed: Stewart Pratt MD at 9:46 EST ,
[2023-09-05] MEDS: Enoxaparin 40 MG/0.4 ML Syringe SC (11:52)
[2023-09-05] MEDS: Lactated Ringers 1,000 ML 75 ML IV (11:53)
[2023-09-06] VITALS (22 sets, daily range): BP systolic 91–114; BP diastolic 58–77; PULSE 86–103; RESP 12–25; TEMP 37.3–38.4; O2SAT 95–100; BMI 28.4
[2023-09-06] MEDS: Vancomycin 125 MG/5 ML Susp PO.SYRINGE PO ×4 (01:14→17:56)
[2023-09-06] MEDS: Lactated Ringers 1,000 ML 75 ML IV ×2 (01:14→13:43)
[2023-09-06] MEDS: Acetaminophen 325 MG Tablet 650 MG PO ×3 (05:16→21:11)
[2023-09-06] MEDS: Piperacil/Tazobactam 3.375 GM in 0.9% Normal Saline (50mL MB+) 50 ML IV (05:16)
[2023-09-06 06:26] LABS: Absolute Lymphocyte Count 0.82 X10^3/uL (0.83-4.51); Basophil# 0.05 X10^3/uL; Basophil% 0.4 % (0-1); Eosinophil# 0.63 X10^3/uL; Eosinophils% 4.8 % (0-5); Hematocrit 28.4 % (40-54); Hemoglobin 8.4 g/dL (13.0-16.5); Lymphocyte # 0.82 X10^3/ul (0.83-4.51); Lymphocyte % 6.2 % (19-41); Mean Corp Hgb Conc 29.6 g/dL (32-36); Mean Corpuscular Hgb 26.8 pg (27.0-32.0); Mean Corpuscular Volume 90.7 fL (80-94); Mean Platelet Vol. 10.4 fl (6.2-12.0); Monocyte# 0.68 X10^3/uL; Monocyte% 5.1 % (0-10); NRBC Flagged by Analyzer 0 % (0-5); POSITIVE COUNT YES; POSITIVE MORPHOLOGY YES; Platelet Count 321 K/mm3 (150-450); RBC Distribution Width CV 14.3 % (11.6-14.6); RBC Distribution Width SD 47.1 fl (35.1-43.9); Red Blood Count 3.13 M/mm3 (4.6-6.2); White Blood Count 13.3 K/mm3 (4.4-11.0)
--- NOTE | 2023-09-06 06:38 | PN.CC_ITS ---
Assessment & Plan Assessment/Plan (1) Sepsis: QUALIFIERS: Sepsis type: sepsis due to unspecified organism Sepsis acute organ dysfunction status: with acute organ dysfunction Severe sepsis acute organ dysfunction type: acute renal failure Acute renal failure type: unspecified Severe sepsis shock status: without septic shock Qualified Code(s): A41.9 - Sepsis, unspecified organism; R65.20 - Severe sepsis without septic shock; N17.9 - Acute kidney failure, unspecified (2) C. difficile colitis: PLAN: Plan RECOMMENDATIONS: 1. Continue antibiotics as ordered. 2. Gentle IV fluid hydration. 3. Encourage incentive spirometer use and mobilize patient as tolerated. 4. Continue appropriate DVT prophylaxis. IMPRESSIONS: 1. Sepsis The patient presented to the hospital with sepsis due to urinary tract source of infection and C. difficile colitis with acute sepsis related organ dysfunction as evidenced by acute kidney injury. The patient received supplemental IV fluids and will remain on empiric antibiotics as ordered with Zosyn and p.o. vancomycin. The patient remains hemodynamically stable at the present time. 2. Acute kidney injury Most likely prerenal in etiology in the setting #1. Creatinine has improved with volume expansion. Continue supportive care with antibiotics as ordered. Continue to monitor urine output. No current indication for renal replacement therapy. 3. Metastatic colon cancer on chemotherapy/history of bowel obstruction/history of hydronephrosis with bilateral stents Complicates care, management, recovery and prognosis. Continue supportive measures noted above. Additional recommendations per general surgery and urology. This note was generated with [employer] dictation software. It may contain incorrect words, spelling, and punctuation that were not noted in checking the note before signing. Subjective Subjective The patient was seen and examined at the bedside this morning. Events from the last 24 hours have been reviewed. The patient is currently afebrile, hemodynamically stable and maintaining appropriate oxygen saturations on room air. The patient remains on Zosyn and p.o. vancomycin. White count has improved to 13,000. Hemoglobin is stable at 8.4 g/dL. Potassium is low at 3.2. Creatinine has improved to 1.58. Objective Data Objective Data The patient's most recent lab work, culture data and imaging studies have all been personally reviewed. Preliminary urine culture is positive for gram- negative elvis, lactose manpower development specialist. Gram-negative rods were also isolated from blood culture on July 04. C. difficile antigen and toxin were positive on July 05. Vital Signs: Vital Signs Temp Pulse Resp BP Pulse Ox O2 Del Method FiO2 100.4 F H 97 22 H 108/76 99 Room Air 99 09/06/23 05:00 09/06/23 05:00 09/06/23 05:00 09/06/23 05:00 09/06/23 05:00 09/06/23 05:00 09/05/23 08:00 Oxygen Delivery Method Room Air Weight: 170 lb 13.732 oz Body Mass Index (BMI) 28.4 Intake & Output: Intake and Output for Last 24 Hours 09/04/23 09/05/23 09/06/23 23:59 23:59 23:59 Intake Total 3610 / 3610 150 / 150 1050 / 1050 Output Total 1100 / 1100 4835 / 4835 640 / 640 Balance 2510 / 2510 -4685 / -4685 410 / 410 Medical Nutrition Assessment Dietitian: Malnutrition Criteria Met Start: 09/05/23 09:32 Freq: Status: Active Protocol: Document 09/05/23 09:32 SLA (Rec: 09/05/23 09:32 SLA Desktop) Nutrition Malnutrition Evidence of Malnutrition Exists Yes Malnutrition (severe): Chronic Evidenced By Suboptimal Energy Intake ( Severe),Weight Loss (Severe) Intake Problem Increased Nutrient Needs (specify) Etiology protein r/t skin status Signs/Symptoms as evidenced by need for wound vac to abd wall and PI coccyx Status Active Problem Inadequate Oral Intake Etiology related to acute illness Signs/Symptoms as evidenced by NPO status Status Active Problem Recommendation Dietitian Recommendations/Changes As medically able, rec MATI to Consistent CHO w/ 4 oz glucerna shake tid w/ meals As medically able, rec Josemanuel bid to help w/ wound healing Lab / Micro Data Attestation: I reviewed the patient's lab results. 09/06/23 05:04 09/06/23 05:04 Micro: Microbiology 09/04/23 23:25 Stool Enteric Bacteriology - Final 09/04/23 23:25 Stool C. difficile GDH Antigen & Toxins - Final Toxigenic C. difficile 09/04/23 23:25 Stool Clostridioides difficile (PCR) - Final 09/04/23 16:20 Urine, Clean Catch Urine Culture - Preliminary GNR lactose manpower development specialist 09/04/23 15:40 Blood Culture (Wb) - Chest Blood Culture - Preliminary 09/04/23 17:15 Blood Culture (Wb) - Anticubital Left Blood Culture - Preliminary 09/04/23 16:05 Mucosa - Nose SARS-CoV-2, Influenza & RSV (PCR) - Final Radiography Diagnostic Testing: Radiology Impression KUB X-Ray 09/05/23 09:00 IMPRESSION: Persistent ileus Retained stool in the distal transverse and proximal descending colon Stable appearance of the PEG tube, and bilateral JJ stents Electronically Signed: Stewart Pratt MD at 9:46 EST , Rhythm Strip Rhythm Strip: Sinus Tach Rate: 120 Ectopy: None Physical Exam Const alert and no apparent distress General Appearance: cooperative HEENT normocephalic, head/scalp atraumatic and moist oral mucous membranes Eyes PERRL, EOMs intact bilaterally and conjunctivae normal Neck supple General: trachea midline Chest inspection of chest normal Resp normal respiratory effort Auscultation: Negative for rales, rhonchi or wheezes Cardio regular rate and regular rhythm GI soft to palpation Inspection: GI tube present and ostomy present Extremity no clubbing, cyanosis or edema Skin no rashes or lesions noted Neuro CN's II-XII intact bilaterally and no focal motor deficits Psych cooperative and affect normal Charges/Coding Visit Charges Inpatient E&M: 81432 Subs Hosp L3
[2023-09-06 06:45] LABS: Anion Gap 5 (5-15); BUN 26 mg/dL (7-18); BUN/Creat Ratio 16.5 RATIO (10-20); Chloride 105 mmol/L (98-107); Creatinine, Serum 1.58 mg/dL (0.70-1.30); EST Glomerular Filtration Rate 51 mL/min (>60); Est Glom Filt Rate - Afr Amer 62 mL/min (>60); Estimated Creatinine Clearance 58.49 ml/min; Glucose 192 mg/dL (74-106); Potassium 3.2 mmol/L (3.5-5.1); Sodium Level 137 mmol/L (136-145)
[2023-09-06 07:14] LABS: Differential Indicated SCAN CRITERIA MET
--- NOTE | 2023-09-06 08:07 | PCM.PN.SRG ---
Subjective Subjective Patient reports he is having no pain for me this morning. He denies nausea or vomiting. Objective Data Objective Data Vital Signs: Vital Signs Temp Pulse Resp BP Pulse Ox O2 Del Method FiO2 99.7 F H 101 H 25 H 108/75 95 Room Air 99 09/06/23 07:00 09/06/23 07:00 09/06/23 07:00 09/06/23 07:00 09/06/23 07:00 09/06/23 07:00 09/05/23 08:00 Oxygen Delivery Method Room Air Weight: 170 lb 13.732 oz Body Mass Index (BMI) 28.4 Intake & Output: Intake and Output for Last 24 Hours 09/04/23 09/05/23 09/06/23 23:59 23:59 23:59 Intake Total 3610 / 3610 150 / 150 1050 / 1050 Output Total 1100 / 1100 4835 / 4835 640 / 640 Balance 2510 / 2510 -4685 / -4685 410 / 410 Medical Nutrition Assessment Dietitian: Malnutrition Criteria Met Start: 09/05/23 09:32 Freq: Status: Active Protocol: Document 09/05/23 09:32 SLA (Rec: 09/05/23 09:32 SLA Desktop) Nutrition Malnutrition Evidence of Malnutrition Exists Yes Malnutrition (severe): Chronic Evidenced By Suboptimal Energy Intake ( Severe),Weight Loss (Severe) Intake Problem Increased Nutrient Needs (specify) Etiology protein r/t skin status Signs/Symptoms as evidenced by need for wound vac to abd wall and PI coccyx Status Active Problem Inadequate Oral Intake Etiology related to acute illness Signs/Symptoms as evidenced by NPO status Status Active Problem Recommendation Dietitian Recommendations/Changes As medically able, rec MATI to Consistent CHO w/ 4 oz glucerna shake tid w/ meals As medically able, rec Josemanuel bid to help w/ wound healing Lab / Micro Data 09/06/23 05:04 09/06/23 05:04 Labs: Laboratory Results - last 24 hr 09/06/23 05:04: WBC 13.3 H, RBC 3.13 L, Hgb 8.4 L, Hct 28.4 L, MCV 90.7 D, MCH 26.8 L, MCHC 29.6 L D, RDW Std Deviation 47.1 H, RDW Coeff of Ajay 14.3, Plt Count 321, MPV 10.4, Immature Gran % (Auto) 0.500, Neut % (Auto) 83.0 H, Lymph % (Auto) 6.2 L, [place] % (Auto) 5.1, Eos % (Auto) 4.8, Baso % (Auto) 0.4, Absolute Neuts (auto) 11.0 H, Absolute Lymphs (auto) 0.82 L, Nucleated RBC % 0, Sodium 137, Potassium 3.2 L, Chloride 105, Carbon Dioxide 27.0, Anion Gap 5, BUN 26 H, Creatinine 1.58 H, Estim Creat Clear Calc 58.49, Est GFR (MDRD) Af Amer 62, Est GFR (MDRD) Non-Af 51 L, BUN/Creatinine Ratio 16.5, Glucose 192 H, Calcium 9.0 Micro: Microbiology 09/04/23 23:25 Stool Enteric Bacteriology - Final 09/04/23 23:25 Stool C. difficile GDH Antigen & Toxins - Final Toxigenic C. difficile 09/04/23 23:25 Stool Clostridioides difficile (PCR) - Final 09/04/23 16:20 Urine, Clean Catch Urine Culture - Preliminary GNR lactose administrative intern 09/04/23 15:40 Blood Culture (Wb) - Chest Blood Culture - Preliminary 09/04/23 17:15 Blood Culture (Wb) - Anticubital Left Blood Culture - Preliminary 09/04/23 16:05 Mucosa - Nose SARS-CoV-2, Influenza & RSV (PCR) - Final Radiography Diagnostic Testing: Radiology Impression KUB X-Ray 09/05/23 09:00 IMPRESSION: Persistent ileus Retained stool in the distal transverse and proximal descending colon Stable appearance of the PEG tube, and bilateral JJ stents Electronically Signed: Stewart Pratt MD at 9:46 EST Reading Location ID and State: [facility] / [place] , Service support , Rhythm Strip Rhythm Strip: Sinus Tach Rate: 120 Ectopy: None Physical Exam Const oriented x3 and no apparent distress Resp normal respiratory effort GI soft to palpation and non-tender Assessment & Plan Assessment/Plan (1) C. difficile colitis: PLAN: The patient has C. difficile colitis and UTI. His white count is coming down. He remains to have a low-grade fever. He was treated with Tylenol which seems to help it. The patient was examined again this morning and he had a urostomy bag covering his colostomy. This may be why the stool was unable to exit and I have asked the wound nurse to come up and change to an ostomy bag. I will also have her remove every other staple today and possibly remove the other ones tomorrow. Will also change the wound VAC. Recommend continuing p.o. Vanco. His PEG tube is to [place] drain. He is having a lot of bilious output from his PEG tube. Patient denies any abdominal pain. No indication for surgery. Await more substantial bowel function and once his sepsis is gone I will resume a diet. Alex Vera MD Pager: [facility] [address] [place] [address], [address] [place] [address] Office:
[2023-09-06 08:47] LABS: Differential Comment SCANNED
[2023-09-06] MEDS: Enoxaparin 40 MG/0.4 ML Syringe SC (09:26)
[2023-09-06] MEDS: Senna/Docusate Sodium 1 Tablet 2 TABLET PO ×2 (09:29→21:11)
[2023-09-06] MEDS: Potassium Chloride Oral Tablet 20 MEQ 40 MEQ PO (09:29)
[2023-09-06] MEDS: Polyethylene Glycol 3350 17 GM PACKET PO (09:29)
--- NOTE | 2023-09-06 09:50 | WOUNDNOTE ---
wound photo: abdomen
--- NOTE | 2023-09-06 09:51 | WOUNDNOTE ---
wound photo: rm anal area
--- NOTE | 2023-09-06 10:04 | WOUNDNOTE ---
Was called to ICU per nursing to change the ostomy appliance. Pt has a colostomy to the left lower quadrant but there is a urostomy appliance in place. the stool is not able to drop down into the bag for this reason. Dr Vera had asked nursing to change to the correct appliance. This nurse was called to change the appliance. removed the current pouch and flange. there was a small amount of formed brown stool in the appliance. stoma sits just above the skin level and is pink and moist. peristomal skin is intact. cleansed skin with warm water. pat dry. applied a new 2 piece flat [place] appliance with a small amount of stoma paste. pt tolerated well.
--- NOTE | 2023-09-06 11:54 | CASEMGMT ---
SW met with patient. Introduced self and role at [facility]. Patient confirmed his plan is to return to [facility] at discharge. Plan: d/c back to [facility] when medically ready and insurance approval. Sunita CHAPMAN
--- NOTE | 2023-09-06 12:07 | CASEMGMT ---
Discharge Planning Updates sent via [facility] to [facility]. Asked if precert will be needed. Awaiting response. Paloma Castillo, Discharge Planning Asst.
--- NOTE | 2023-09-06 13:02 | CASEMGMT ---
SARAH received a phone call from patient's brother Urbano. Urbano explained he is the medical power of corporate associate attorney for patient. Urbano mentioned a few things to SW. First, he was not sure if [facility] will hold his bed or not. SW let him know SW can follow up on this. Urbano wanted patient's appt with Dr Hamilton rescheduled as it was supposed to be today. Urbano would also like it if someone could talk with patient about Hospice for informational purposes only. Also, Urbano strongly emphasized that patient's mother is not to make any decisions for patient nor should she be present when decisions need to be made. She will pressure and manipulate patient when he is already in a difficult position. Urbano would like to be part of any decision making as this is tough for patient and he also suffers from depression. SARAH let Urbano know SW will pass along this information to ICU staff. SW can talk with patient about Hospice for informational purposes only. SARAH can also re-schedule patient's Oncology appt. Plan: d/c back to [facility]. Patient will need insurance authorization to return. Patient's brother Urbano is patient's Healthcare Power of [employer]. Per Urbano patient's mom should not be part of any decision making for patient. Decisions should be made between patient and his brother Urbano. Sunita CHAPMAN
--- NOTE | 2023-09-06 13:31 | CASEMGMT ---
SW spoke with patient's RN and updated her on patient's brother and mother. SW also sat down with patient to discuss his situation. Patient confirmed that he and his brother Urbano are close. Both patient and Urbano are concerned about their mom Zhane and prefer she not be a part of decision making. This is due to Zhane's difficulty handling patient's situation. Zhane has too many emotions to make any sound decisions for patient. Patient said she has already had a breakdown. SW explained Urbano was asking that someone talk with patient about hospice for informational purposes only. Patient confirmed this. Patient said that any time hospice is brought up it has been a negative outcome for family. Patient said his dad went on Hospice and never returned home. His grandma went on Hospice and she did not make it. SW listened and provided emotional support. SW explained Hospice care, Hospice care at a facility, Hospice care at home, and Hospice care at the local inpatient hospice unit. Patient said he just wants to talk to the Oncologist to see if chemo is even worth it. Patient said he is tired of fighting and being in the hospital. Patient said he just wants to be home. SW told patient SW will ask if the physician can consult Dr Carney to see if he can see patient while in the hospital. SW also let patient know that he is always welcome to ask for SW if he feels he needs to talk or if he has questions. Patient thanked SARAH. SW asked physician about consulting Dr Canrey to see patient at [facility]. Physician said he feels that would be appropriate and he will put in the consult. Sunita CHAPMAN
[2023-09-06] MEDS: Ceftriaxone 1 GM/50 ML BAG IV (13:44)
--- NOTE | 2023-09-06 13:44 | CASEMGMT ---
Discharge Planning Patient will need precert to return. Paloma Castillo, Discharge Planning Asst.
[2023-09-06] MEDS: 0.9% Normal Saline (250mL Bag) 250 ML 15 ML IV (14:06)
--- NOTE | 2023-09-06 15:19 | PCM.PN.HOSP ---
Reason for Visit Reason for Visit: Diagnoses Enterocolitis due to Clostridium difficile, not specified as recurrent (09/04/23) Sepsis, unspecified organism (09/04/23) Acute kidney failure, unspecified (09/04/23) Urinary tract infection, site not specified (09/04/23) Severe sepsis without septic shock (09/04/23) Subjective Subjective No acute events overnight. Lying comfortably in bed this morning, conversing normally, no acute distress. Did have an ice pack on his forehead when I saw him, stated he had a mild fever and headache. Otherwise feeling well, no acute pain or discomfort. States his abdomen feels fine this morning, no pain or distention. Is unsure about how much stool output has had into his colostomy bag since yesterday. He is feeling hungry and hoping to eat soon. He is also wondering when oncology will see him to discuss the plan for his chemotherapy going forward. No other acute concerns morning. Objective Data Objective Data Vital Signs: Vital Signs Temp Pulse Resp BP Pulse Ox O2 Del Method FiO2 99.6 F H 100 19 H 91/74 98 Room Air 99 09/06/23 12:00 09/06/23 12:00 09/06/23 12:00 09/06/23 12:00 09/06/23 12:00 09/06/23 12:00 09/05/23 08:00 Oxygen Delivery Method Room Air Weight: 77.5 kg Body Mass Index (BMI) 28.4 Intake & Output: Intake and Output for Last 24 Hours 09/04/23 09/05/23 09/06/23 23:59 23:59 23:59 Intake Total 3610 / 3610 150 / 150 6.25 / 2035.25 Output Total 1100 / 1100 4835 / 4835 1715 / 1715 Balance 2510 / 2510 -4685 / -4685 321.25 / 321.25 Medical Nutrition Assessment Dietitian: Malnutrition Criteria Met Start: 09/05/23 09:32 Freq: Status: Active Protocol: Document 09/05/23 09:32 SLA (Rec: 09/05/23 09:32 SLA Desktop) Nutrition Malnutrition Evidence of Malnutrition Exists Yes Malnutrition (severe): Chronic Evidenced By Suboptimal Energy Intake ( Severe),Weight Loss (Severe) Intake Problem Increased Nutrient Needs (specify) Etiology protein r/t skin status Signs/Symptoms as evidenced by need for wound vac to abd wall and PI coccyx Status Active Problem Inadequate Oral Intake Etiology related to acute illness Signs/Symptoms as evidenced by NPO status Status Active Problem Recommendation Dietitian Recommendations/Changes As medically able, rec MATI to Consistent CHO w/ 4 oz glucerna shake tid w/ meals As medically able, rec Josemanuel bid to help w/ wound healing Lab / Micro Data 09/06/23 05:04 09/06/23 05:04 Labs: Laboratory Results - last 24 hr 09/06/23 05:04: WBC 13.3 H, RBC 3.13 L, Hgb 8.4 L, Hct 28.4 L, MCV 90.7 D, MCH 26.8 L, MCHC 29.6 L D, RDW Std Deviation 47.1 H, RDW Coeff of Ajay 14.3, Plt Count 321, MPV 10.4, Immature Gran % (Auto) 0.500, Neut % (Auto) 83.0 H, Lymph % (Auto) 6.2 L, [place] % (Auto) 5.1, Eos % (Auto) 4.8, Baso % (Auto) 0.4, Absolute Neuts (auto) 11.0 H, Absolute Lymphs (auto) 0.82 L, Nucleated RBC % 0, Differential Comment SCANNED, Sodium 137, Potassium 3.2 L, Chloride 105, Carbon Dioxide 27.0, Anion Gap 5, BUN 26 H, Creatinine 1.58 H, Estim Creat Clear Calc 58.49, Est GFR (MDRD) Af Amer 62, Est GFR (MDRD) Non-Af 51 L, BUN/Creatinine Ratio 16.5, Glucose 192 H, Calcium 9.0 Micro: Microbiology 09/04/23 17:15 Blood Culture (Wb) - Anticubital Left Blood Culture - Preliminary GNR lactose director corporate compliance 09/04/23 15:40 Blood Culture (Wb) - Chest Blood Culture - Preliminary GNR lactose director corporate compliance Gram negative elvis 09/04/23 16:20 Urine, Clean Catch Urine Culture - Final Klebsiella pneumoniae sp pneum 09/04/23 23:25 Stool Enteric Bacteriology - Final 09/04/23 23:25 Stool C. difficile GDH Antigen & Toxins - Final Toxigenic C. difficile 09/04/23 23:25 Stool Clostridioides difficile (PCR) - Final 09/04/23 16:05 Mucosa - Nose SARS-CoV-2, Influenza & RSV (PCR) - Final Rhythm Strip Rhythm Strip: Sinus Tach Rate: 120 Ectopy: None Physical Exam Const alert, oriented x3, no apparent distress and average body habitus Constitutional Narrative: Pleasant middle-age male, fatigued, otherwise laying comfortably in bed, conversing normally, no acute distress. General Appearance: cooperative and comfortable HEENT normocephalic, head/scalp atraumatic, hearing grossly normal bilaterally, nasal mucous membranes and turbinates normal and moist oral mucous membranes Eyes PERRL, EOMs intact bilaterally and conjunctivae normal Neck full ROM, no lymphadenopathy and supple Lymph Lymphatic: no lymphadenopathy noted Chest inspection of chest normal Resp normal respiratory effort, normal air movement, no use of accessory muscles and clear to auscultation bilaterally Cardio regular rate, regular rhythm, no murmurs and peripheral pulses 2+ throughout GI GI Narrative: Colostomy bag noted. Large central incision also noted with some maurilio still intact, incision appears to be healing well. Mild abdominal tenderness and distention, otherwise soft palpation, no guarding noted. Back/Spine normal ROM Extremity normal to inspection, full ROM and no pedal edema Skin no rashes or lesions noted Neuro no focal motor deficits and no sensory deficits noted Motor Exam: strength 5/5 throughout Psych mental status grossly normal Assessment & Plan Assessment/Plan (1) C. 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 1. Sepsis without shock secondary to complicated UTI versus C. difficile infection, improving Presented with high-grade fever, tachycardia, leukocytosis, DAMIAN and hypotension responsive to IV fluids. C. difficile positive on 09/04. Urine culture and blood cultures from 09/[address] abdomen pelvis on admit showed stable bilateral double-J stent catheters, moderate to large amount of fecal material seen within the colon, PEG tube in stomach with stomach fully distended. S/p IV fluids on admission with improvement in hypotension. ? Lockstitch Waistband Setter and general surgery following. De-escalated to ceftriaxone on 09/06 with plan to complete 10 to 14-day course. Continue p.o. vancomycin. Per surgery, having lots of bilious output from PEG tube, will remain n.p.o. for now. Continue LR 75 cc/h for maintenance IV fluids while NPO. Continue senna and MiraLAX for bowel regimen. 2. DAMIAN, improving Creatinine peaked at 2.25 on 09/04, baseline creatinine around 1.3-1.4. Presumed prerenal DAMIAN in setting of sepsis as noted above. CT abdomen pelvis on admit showed no evidence of obstruction. ? Improving, creatinine 1.58 on 09/06 with adequate urine output. Continue to trend BMP and urine output. 3. Rectal cancer Initially diagnosed in September 2021. Followed with oncology and colorectal surgery at [facility] until recently. Has had neoadjuvant chemotherapy to this point but no surgical resection of the rectal mass. Patient lives in [place] near [place] but due to his worsening functional status, he recently moved back in with his mother who lives close to [place]. He had an outpatient appointment scheduled to establish with Dr. Carney with oncology on 09/06. ? Oncology consulted. Patient has listed pain regimen of morphine 30 mg every 12 hours as needed, oxycodone 10 mg every 4 hours as needed and per his OARRS report he has been filling this appropriately. This regimen was held on admission as patient was n.p.o. Has had very minimal pain to this point, will continue to hold pain regimen for now; appreciate oncology recs regarding patient's pain regimen going forward. 4. Moderate protein calorie malnutrition secondary to colorectal cancer and surgery ? Patient has been n.p.o. since 09/03. Surgery following as above. If patient is unable to have diet advanced in the next 1 to 2 days, may need to consider the placement and initiation of TPN. Nutrition following. 5. History of small bowel obstruction Followed with general surgery in [place]. Had diverting colostomy placed there about 1 month prior to this admission. Surgical scar from navel to pubis appears to be healing well. ? Surgery following as above. Removing surgical maurilio as able. On bowel regimen as noted above. Chronic medical conditions: ? Hyperlipidemia: Continue home statin. ? GERD: Continue home Pepcid. ? Hypertension: Holding home lisinopril, restart when able. ? Depression, insomnia: Continue home mirtazapine. ? Type 2 diabetes mellitus: On home metformin 500 mg daily, linagliptin 5 mg daily, semaglutide 1 mg/week. Patient currently n.p.o. due to C. difficile infection with constipation and persistent ileus as noted above. Okay to hold off on sliding-scale insulin regimen with glucose checks for now, will plan to start this once patient has a diet. DVT prophylaxis: Lovenox CODE STATUS: Full code, verified Expected disposition: SNF, TBD Total clinical time spent by myself addressing the patient's medical issues, reviewing all the data, and collaborating with patient's care team: 35 minutes. Charges/Coding Visit Charges Inpatient E&M: 78530 Subs Hosp L2
--- NOTE | 2023-09-06 17:51 | ONC.CONSULT ---
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 Consider resuming palliative chemotherapy with FOLFIRI (+/- cetuximab or panitumumab given KRAS wild type) after resolution of current infectious processes. Resume PO analgesia regimen from home medication list when able. (2) Peritoneal carcinomatosis: Status: Acute Code(s): C78.6 - Secondary malignant neoplasm of retroperitoneum and peritoneum (3) Anemia: Status: Acute Code(s): D64.9 - Anemia, unspecified Qualifiers: Anemia type: unspecified type Qualified Code(s): D64.9 - Anemia, unspecified Plan: Likely multifactorial, anemia of chronic disease. Unlikely secondary to most recent chemotherapy given exposure was > 4 weeks ago and anemia is normocytic. Assess for contributing nutritional deficiencies, iron, b12 folate. (4) Hypoalbuminemia: Status: Acute Code(s): E88.09 - Other disorders of plasma-protein metabolism, not elsewhere classified Plan: Consider nutrition referral. Case discussed with Dr. Jackson, who was in agreement with the aforementioned plan. Patient to follow up with [facility] upon discharge. I spent 60 minutes reviewing labs, records and history. Time includes coordination of care and interpretation of tests. This also includes time that I spent with the patient for the exam, formulation of treatment plan, patient education, as well as documenting clinical information. HPI Consult Data Date of Service:: 09/07/23 PCP / Referring Provider: Dr. Cara Padron MD Attending: Dr. Jovanni Early DO Chief Complaint Chief Complaint: Rectal cancer History of Present Illness History of Present Illness: Mr. Roque is a very pleasant 43 year old male with a PMH significant for diabetes, anxiety and depression, psychogenic nonepileptic seizures, hyperlipidemia, and rectal ca who presented to [facility] ED on 09/03/23 by squad from ECF with c/o increased abd pain and distention.? Labs revealed WBC 7.9, Hgb 9.9, Cr 1.31 and [address] CT A/P with contrast showed evidence of atelectasis in the lung bases, ascites, surgical anastomosis midportion transverse colon with residual fecal material throughout, small bowel ostomy left anterior abdominal wall, stable bilateral double-J stents, presacral soft tissue prominence and identification of PEG tube. His?nausea improved with suction of PEG tube site and he was discharged back to ECF. On 09/04/23 presented to [facility] ED with c/o fever. Found to be hypotensive and tachycardic. ?Labs demonstrated neutrophilia and Cr elevated to 2.25. Urine concerning for infection.? Admitted for management of sepsis, suspected complicated UTI with DAMIAN.??Later tested positive for C Diff. 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 He underwent definitive APR with end colostomy on 06/04/22. Path revealed rare signet cell cancer cells with negative margins and [address] Required hospitalization 08/24/22 through 08/26/22 to address perirectal abscess s/p I&D and chronic wound management. A PET/CT performed on 06/19/23 demonstrated postoperative changes of the prior rectal surgery with intense radiotracer activity corresponding to ill-defined density in the presacral region abutting the posterior aspect of the urinary bladder concerning for neoplastic process. 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 Liquid biopsy from [facility] shows variation of MIK, negative for KRAS, BRAF, NRAS. TMB stable. Bilateral ureteral stents placed to address bilat hydronephrosis. Began palliative FOLFIRI (no bevacizumab given with cycle 1) on 07/27/23. Patient presented to [place] ED on 07/31/23 with symptoms consistent with SBO. A CT A/P with IV contrast was performed 07/30/23 which showed diffuse ascites within the abdomen and pelvis, ill-defined opacities in the omentum and non specific bladder wall thickening. He subsequently went on to have an exploratory laparotomy, G-tube placement, enteroenteric bypass, extensive lysis of adhesions on 08/03/23 (again abdominal mass biopsied confirmed presence of signet ring cell adenocarcinoma [id number]). He was then discharged to ECF, recently moved to an ECF in [facility] to be closer to family. Was tentatively scheduled this afternoon to establish with [facility] and discuss resuming palliative chemotherapy. Interval History Interval History: Upon entering the room, the patient is lying supine in bed with several ice packs on either side of his head conversing with brother who he then places on speaker phone for the duration of our conversation. Explains ice is to address ongoing fever and headache, but overall he is feeling better than yesterday. 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 Neuropathy Obesity Peritoneal carcinomatosis Port-A-Cath in place Seizures Home Medications cephalexin 500 mg capsule 500 mg PO Q12 #14 CAPSULES 06/21/22 [Rx Last Taken Unknown] atorvastatin 40 mg tablet 40 mg PO DAILY CHOLESTEROL 07/30/23 [History Last Taken Unknown] linagliptin 5 mg tablet (Tradjenta) 5 mg PO DAILY 07/30/23 [History Last Taken Unknown] morphine 30 mg tablet,extended release 30 mg PO Q12H PRN pain 07/30/23 [History Last Taken Unknown] oxybutynin chloride 5 mg tablet,extended release 24 hr 10 mg PO DAILY URINARY SPASMS 07/30/23 [History Last Taken Unknown] oxycodone 10 mg tablet 10 mg PO Q4H PRN pain 07/30/23 [History Last Taken Unknown] prochlorperazine maleate 10 mg tablet 10 mg PO Q6H PRN nausea 07/30/23 [History Last Taken Unknown] sennosides 8.6 mg-docusate sodium 50 mg tablet (Stool Softener-Laxative) 1 tab-cap PO BID PRN PRN constipation 07/30/23 [History Last Taken Unknown] capecitabine 150 mg tablet 150 mg PO BID 08/24/23 [History Last Taken Unknown] gabapentin 300 mg capsule 300 mg PO DAILY 08/24/23 [History Last Taken Unknown] lisinopril 10 mg tablet 10 mg PO DAILY 08/24/23 [History Last Taken Unknown] metformin 500 mg tablet 500 mg PO DAILY 08/24/23 [History Last Taken Unknown] semaglutide 1 mg/dose (4 mg/3 mL) subcutaneous pen injector (Ozempic) 1 mg subcut QWEEK 08/24/23 [History Last Taken Unknown] dronabinol 5 mg capsule 5 mg PO BID POOR APPETITE 09/04/23 [History Last Taken Unknown] ergocalciferol (vitamin D2) 1,250 mcg (50,000 unit) capsule (Drisdol) 50,000 unit PO QWEEK SUPPLEME 09/04/23 [History Last Taken Unknown] famotidine 20 mg tablet 20 mg PO BID INDIGESTION 09/04/23 [History Last Taken Unknown] mirtazapine 15 mg tablet 15 mg PO QHS DEPRESSION 09/04/23 [History Last Taken Unknown] multivitamin 1 tab PO DAILY SUPPLEMENT 09/04/23 [History Last Taken Unknown] ondansetron HCl 4 mg tablet 4 mg PO Q6H PRN N/V 09/04/23 [History Last Taken Unknown] trazodone 50 mg tablet 25 mg PO QHS INSOMNIA 09/04/23 [History Last Taken Unknown] Allergy/AdvReac Type Severity Reaction Status Date / Time naproxen AdvReac Other Verified 09/04/23 15:05 Family History Father CVA (cerebral vascular accident) Diabetes Agent orange exposure Aunt Colon cancer Grandmother Colon cancer Grandfather Diabetes Surgical History H/O ureteroscopy History of creation of ostomy History of incision and drainage History of laparoscopy Social History Smoking Status: Former smoker Tobacco: How many years used: 10 alcohol intake: current alcohol intake frequency: holidays/special occasions only substance use type: does not use ROS Constitutional Constitutional: Reports fever(s) and headache(s) Eyes Eyes: Denies blurry vision ENT HEENT: Denies abnormal hearing Cardiovascular Cardiovascular: Denies chest pain Respiratory/Chest Respiratory/Chest: Denies dyspnea Gastrointestinal Gastrointestinal: Denies abdominal pain, nausea or vomiting Integumentary Integumentary: Denies jaundice Neurologic Neurologic: Reports numbness and tingling Physical Exam Const alert, oriented x3, no apparent distress and average body habitus HEENT normocephalic, head/scalp atraumatic and moist oral mucous membranes Eyes conjunctivae normal Chest inspection of chest normal Resp normal respiratory effort and normal air movement Cardio regular rate and regular rhythm GI GI Narrative: Colostomy bag noted. Large central incision also noted with some maurilio still intact, incision appears to be healing well. Mild abdominal tenderness and distention, otherwise soft palpation, no guarding noted. Psych mental status grossly normal Vital Signs Temperature 99.5 F H 09/06/23 15:00 Temperature Source Core 09/06/23 15:00 Pulse Rate 86 09/06/23 15:00 Pulse Strength Normal (2+) 09/06/23 10:00 Respiratory Rate 17 09/06/23 15:00 Respiratory Effort Normal 09/06/23 12:00 Respiratory Depth Normal 09/06/23 12:00 Respiratory Pattern Normal 09/06/23 12:00 Blood Pressure 94/70 09/06/23 15:00 Blood Pressure Mean 78 09/06/23 15:00 Blood Pressure Source Monitor 09/06/23 15:00 Blood Pressure Position Semi-Fowlers 09/06/23 15:00 Blood Pressure Location Left Arm 09/06/23 15:00 Pulse Ox 100 09/06/23 15:00 Oxygen Delivery Method Room Air 09/06/23 15:00 Fraction of Inspired Oxygen (FIO2) 99 09/05/23 08:00 Laboratory Results - last 24 hr 09/06/23 05:04: WBC 13.3 H, RBC 3.13 L, Hgb 8.4 L, Hct 28.4 L, MCV 90.7 D, MCH 26.8 L, MCHC 29.6 L D, RDW Std Deviation 47.1 H, RDW Coeff of Ajay 14.3, Plt Count 321, MPV 10.4, Immature Gran % (Auto) 0.500, Neut % (Auto) 83.0 H, Lymph % (Auto) 6.2 L, [place] % (Auto) 5.1, Eos % (Auto) 4.8, Baso % (Auto) 0.4, Absolute Neuts (auto) 11.0 H, Absolute Lymphs (auto) 0.82 L, Nucleated RBC % 0, Differential Comment SCANNED, Sodium 137, Potassium 3.2 L, Chloride 105, Carbon Dioxide 27.0, Anion Gap 5, BUN 26 H, Creatinine 1.58 H, Estim Creat Clear Calc 58.49, Est GFR (MDRD) Af Amer 62, Est GFR (MDRD) Non-Af 51 L, BUN/Creatinine Ratio 16.5, Glucose 192 H, Calcium 9.0 Microbiology 09/04/23 17:15 Blood Culture (Wb) - Anticubital Left Blood Culture - Preliminary GNR lactose trade sales assistant 09/04/23 15:40 Blood Culture (Wb) - Chest Blood Culture - Preliminary GNR lactose trade sales assistant Gram negative elvis 09/04/23 16:20 Urine, Clean Catch Urine Culture - Final Klebsiella pneumoniae sp pneum 09/04/23 23:25 Stool Enteric Bacteriology - Final 09/04/23 23:25 Stool C. difficile GDH Antigen & Toxins - Final Toxigenic C. difficile 09/04/23 23:25 Stool Clostridioides difficile (PCR) - Final Diagnostic Data Chest X-Ray 09/04/23 16:20 IMPRESSION: No active disease. Electronically Signed: Marcelo Gonzalez MD at 17:17 EST , KUB X-Ray 09/05/23 09:00 IMPRESSION: Persistent ileus Retained stool in the distal transverse and proximal descending colon Stable appearance of the PEG tube, and bilateral JJ stents Electronically Signed: Stewart Pratt MD at 9:46 EST ,
[2023-09-06] MEDS: Mirtazapine 15 MG Tablet PO (21:11)
[2023-09-06] MEDS: Atorvastatin Calcium 40 MG Tablet PO (21:11)
[2023-09-06] MEDS: Famotidine 20 MG Tablet PO (21:11)
[2023-09-07] VITALS (8 sets, daily range): BP systolic 98–142; BP diastolic 68–93; PULSE 88–105; RESP 15–16; TEMP 36.6–37.7; O2SAT 94–100; BMI 28.8
[2023-09-07] MEDS: Vancomycin 125 MG/5 ML Susp PO.SYRINGE PO ×4 (00:16→17:26)
[2023-09-07] MEDS: Lactated Ringers 1,000 ML 75 ML IV (02:23)
[2023-09-07 07:15] LABS: Hematocrit 24.9 % (40-54); Hemoglobin 7.5 g/dL (13.0-16.5); Mean Corp Hgb Conc 30.1 g/dL (32-36); Mean Corpuscular Hgb 25.9 pg (27.0-32.0); Mean Corpuscular Volume 85.9 fL (80-94); Mean Platelet Vol. 9.5 fl (6.2-12.0); Platelet Count 318 K/mm3 (150-450); RBC Distribution Width CV 13.8 % (11.6-14.6); RBC Distribution Width SD 43.2 fl (35.1-43.9); White Blood Count 7.2 K/mm3 (4.4-11.0)
[2023-09-07 07:21] LABS: Scan Indicated on CBC? Y/N NO
--- NOTE | 2023-09-07 07:40 | PCM.PN.SRG ---
Subjective Subjective Patient denies any abdominal pain. Objective Data Objective Data Vital Signs: Vital Signs Temp Pulse Resp BP Pulse Ox O2 Del Method FiO2 97.9 F 92 16 98/76 98 Room Air 99 09/07/23 02:38 09/07/23 02:38 09/07/23 02:38 09/07/23 02:38 09/07/23 02:38 09/07/23 02:38 09/05/23 08:00 Oxygen Delivery Method Room Air Weight: 170 lb 13.732 oz Body Mass Index (BMI) 28.4 Intake & Output: Intake and Output for Last 24 Hours 09/05/23 09/06/23 09/07/23 23:59 23:59 23:59 Intake Total 150 / 150 2716.25 / 2716.25 2032.5 / 203.5 Output Total 4835 / 4835 2915 / 2915 1650 / 1650 Balance -4685 / -4685 -198.75 / -198.75 382.5 / 382.5 Medical Nutrition Assessment Dietitian: Malnutrition Criteria Met Start: 09/05/23 09:32 Freq: Status: Active Protocol: Document 09/05/23 09:32 SLA (Rec: 09/05/23 09:32 SLA Desktop) Nutrition Malnutrition Evidence of Malnutrition Exists Yes Malnutrition (severe): Chronic Evidenced By Suboptimal Energy Intake ( Severe),Weight Loss (Severe) Intake Problem Increased Nutrient Needs (specify) Etiology protein r/t skin status Signs/Symptoms as evidenced by need for wound vac to abd wall and PI coccyx Status Active Problem Inadequate Oral Intake Etiology related to acute illness Signs/Symptoms as evidenced by NPO status Status Active Problem Recommendation Dietitian Recommendations/Changes As medically able, rec MATI to Consistent CHO w/ 4 oz glucerna shake tid w/ meals As medically able, rec Josemanuel bid to help w/ wound healing Lab / Micro Data 09/07/23 06:54 09/06/23 05:04 Labs: Laboratory Results - last 24 hr 09/06/23 05:04: Plt Count 321, Differential Comment SCANNED 09/07/23 06:54: WBC 7.2, RBC 2.90 L, Hgb 7.5 L, Hct 24.9 L, MCV 85.9 D, MCH 25.9 L, MCHC 30.1 L, RDW Std Deviation 43.2, RDW Coeff of Ajay 13.8, Plt Count 318, MPV 9.5 Micro: Microbiology 09/04/23 17:15 Blood Culture (Wb) - Anticubital Left Blood Culture - Preliminary GNR lactose plasma center nurse 09/04/23 15:40 Blood Culture (Wb) - Chest Blood Culture - Preliminary GNR lactose plasma center nurse Gram negative elvis 09/04/23 16:20 Urine, Clean Catch Urine Culture - Final Klebsiella pneumoniae sp pneum 09/04/23 23:25 Stool Enteric Bacteriology - Final 09/04/23 23:25 Stool C. difficile GDH Antigen & Toxins - Final Toxigenic C. difficile 09/04/23 23:25 Stool Clostridioides difficile (PCR) - Final 09/04/23 16:05 Mucosa - Nose SARS-CoV-2, Influenza & RSV (PCR) - Final Rhythm Strip Rhythm Strip: Sinus Tach Rate: 120 Ectopy: None Physical Exam Const oriented x3 Resp normal respiratory effort GI soft to palpation and non-tender Assessment & Plan Assessment/Plan (1) C. difficile colitis: PLAN: The patient denies any abdominal pain today. He has 1 hard stool ball in his ostomy bag plus some gas. He is nontender. He remains to have intermittent low-grade fevers. Patient's blood cultures came back positive. Patient is on Zosyn and p.o. bank. Since his white count normalized today I will his G-tube and continue clears to see how well he tolerates it. If he tolerates clears with no nausea he can advance to full's later today. If he has any nausea and instructed the nurses to place his G-tube back to gravity drain. Recommend consulting ID to see if his port needs to come out. I also heard that he discussed his situation with hospice yesterday. Awaiting decision on that as well. Alex Vera MD Pager: [facility] [address] [place] [address], [address] [place] [address] Office:
[2023-09-07 07:48] LABS: Anion Gap 6 (5-15); BUN 18 mg/dL (7-18); BUN/Creat Ratio 16.1 RATIO (10-20); Calcium,Total 8.9 mg/dL (8.5-10.1); Chloride 107 mmol/L (98-107); Creatinine, Serum 1.12 mg/dL (0.70-1.30); EST Glomerular Filtration Rate 76 mL/min (>60); Est Glom Filt Rate - Afr Amer 92 mL/min (>60); Estimated Creatinine Clearance 82.52 ml/min; Glucose 148 mg/dL (74-106); Potassium 3.4 mmol/L (3.5-5.1); Sodium Level 140 mmol/L (136-145)
--- NOTE | 2023-09-07 10:31 | PCM.CONS.GEN ---
Assessment & Plan Assessment/Plan (1) C. difficile colitis: (2) Sepsis: QUALIFIERS: Sepsis type: sepsis due to unspecified organism Sepsis acute organ dysfunction status: with acute organ dysfunction Severe sepsis acute organ dysfunction type: acute renal failure Acute renal failure type: unspecified Severe sepsis shock status: without septic shock Qualified Code(s): A41.9 - Sepsis, unspecified organism; R65.20 - Severe sepsis without septic shock; N17.9 - Acute kidney failure, unspecified PLAN: Sepsis due to klebs and proteus bacteremia with cdiff colitis. Concern for urinary vs GI source of bacteremia. Fever curve improving, wbc now normal, DAMIAN much improved. Cont ceftriaxone and po vanc. Will check repeat bcx from port and periphery to see if port can be salvaged. Will follow, thank you (3) Bacteremia due to Gram-negative bacteria: HPI Consult Data Date of Consult: 09/07/23 HPI Narrative Reason for Consultation: bacteremia HPI Narrative: ADAM VEGA, is a 43 M with metastatic colon cancer s/p resection. Last chemo via R chest port over a month ago. Presented 2/3 from [facility] with 2 days fever, abd pain, n/v. Admitted to icu on zosyn, now cdiff (+), out of icu, feeling better. No cough or SOB. Abd pain resolved. No blood in stool. Ostomy in place. Full ROS performed and neg except as noted above. No prior h/o cdiff, no recent abx for at least several months. No urinary changes but since radiation therapy has been incontinent. No dysuria. [facility] Medical History Abnormal colonoscopy Anemia Anxiety and depression Diabetes History of flexible sigmoidoscopy Hyperlipemia Hypoalbuminemia Malignant neoplasm of colorectal area with metastasis Monoallelic mutation of MIK gene Neuropathy Obesity Peritoneal carcinomatosis Port-A-Cath in place Seizures Home Medications cephalexin 500 mg capsule 500 mg PO Q12 #14 CAPSULES 06/21/22 [Rx Last Taken Unknown] atorvastatin 40 mg tablet 40 mg PO DAILY CHOLESTEROL 07/30/23 [History Last Taken Unknown] linagliptin 5 mg tablet (Tradjenta) 5 mg PO DAILY 07/30/23 [History Last Taken Unknown] morphine 30 mg tablet,extended release 30 mg PO Q12H PRN pain 07/30/23 [History Last Taken Unknown] oxybutynin chloride 5 mg tablet,extended release 24 hr 10 mg PO DAILY URINARY SPASMS 07/30/23 [History Last Taken Unknown] oxycodone 10 mg tablet 10 mg PO Q4H PRN pain 07/30/23 [History Last Taken Unknown] prochlorperazine maleate 10 mg tablet 10 mg PO Q6H PRN nausea 07/30/23 [History Last Taken Unknown] sennosides 8.6 mg-docusate sodium 50 mg tablet (Stool Softener-Laxative) 1 tab-cap PO BID PRN PRN constipation 07/30/23 [History Last Taken Unknown] capecitabine 150 mg tablet 150 mg PO BID 08/24/23 [History Last Taken Unknown] gabapentin 300 mg capsule 300 mg PO DAILY 08/24/23 [History Last Taken Unknown] lisinopril 10 mg tablet 10 mg PO DAILY 08/24/23 [History Last Taken Unknown] metformin 500 mg tablet 500 mg PO DAILY 08/24/23 [History Last Taken Unknown] semaglutide 1 mg/dose (4 mg/3 mL) subcutaneous pen injector (Ozempic) 1 mg subcut QWEEK 08/24/23 [History Last Taken Unknown] dronabinol 5 mg capsule 5 mg PO BID POOR APPETITE 09/04/23 [History Last Taken Unknown] ergocalciferol (vitamin D2) 1,250 mcg (50,000 unit) capsule (Drisdol) 50,000 unit PO QWEEK SUPPLEME 09/04/23 [History Last Taken Unknown] famotidine 20 mg tablet 20 mg PO BID INDIGESTION 09/04/23 [History Last Taken Unknown] mirtazapine 15 mg tablet 15 mg PO QHS DEPRESSION 09/04/23 [History Last Taken Unknown] multivitamin 1 tab PO DAILY SUPPLEMENT 09/04/23 [History Last Taken Unknown] ondansetron HCl 4 mg tablet 4 mg PO Q6H PRN N/V 09/04/23 [History Last Taken Unknown] trazodone 50 mg tablet 25 mg PO QHS INSOMNIA 09/04/23 [History Last Taken Unknown] Allergy/AdvReac Type Severity Reaction Status Date / Time naproxen AdvReac Other Verified 09/04/23 15:05 Family History Father CVA (cerebral vascular accident) Diabetes Agent orange exposure Aunt Colon cancer Grandmother Colon cancer Grandfather Diabetes Surgical History H/O ureteroscopy History of creation of ostomy History of incision and drainage History of laparoscopy Social History Smoking Status: Former smoker Tobacco: How many years used: 10 alcohol intake: current alcohol intake frequency: holidays/special occasions only substance use type: does not use Physical Exam Const alert, oriented x3 and no apparent distress General Appearance: cooperative HEENT normocephalic and head/scalp atraumatic Eyes PERRL and EOMs intact bilaterally Neck supple and No nodes Resp normal air movement and clear to auscultation bilaterally Cardio regular rate and regular rhythm GI soft to palpation, non-tender and non-distended GI Narrative: ostomy in place Extremity General Extremity: Negative for edema Skin no rashes or lesions noted Skin Narrative: No inflammation over R chest port Neuro CN's II-XII intact bilaterally Medical Records Data Medical Nutrition Assessment Dietitian: Malnutrition Criteria Met Start: 09/05/23 09:32 Freq: Status: Active Protocol: Document 09/05/23 09:32 SLA (Rec: 09/05/23 09:32 SLA Desktop) Nutrition Malnutrition Evidence of Malnutrition Exists Yes Malnutrition (severe): Chronic Evidenced By Suboptimal Energy Intake ( Severe),Weight Loss (Severe) Intake Problem Increased Nutrient Needs (specify) Etiology protein r/t skin status Signs/Symptoms as evidenced by need for wound vac to abd wall and PI coccyx Status Active Problem Inadequate Oral Intake Etiology related to acute illness Signs/Symptoms as evidenced by NPO status Status Active Problem Recommendation Dietitian Recommendations/Changes As medically able, rec MATI to Consistent CHO w/ 4 oz glucerna shake tid w/ meals As medically able, rec Josemanuel bid to help w/ wound healing Lab / Micro Data Attestation: I reviewed the patient's lab results. 09/07/23 06:54 09/07/23 06:54 Labs: Laboratory Results - last 24 hr 09/07/23 06:54: WBC 7.2, RBC 2.90 L, Hgb 7.5 L, Hct 24.9 L, MCV 85.9 D, MCH 25.9 L, MCHC 30.1 L, RDW Std Deviation 43.2, RDW Coeff of Ajay 13.8, Plt Count 318, MPV 9.5, Sodium 140, Potassium 3.4 L, Chloride 107, Carbon Dioxide 27.0, Anion Gap 6, BUN 18, Creatinine 1.12, Estim Creat Clear Calc 82.52, Est GFR (MDRD) Af Amer 92, Est GFR (MDRD) Non-Af 76, BUN/Creatinine Ratio 16.1, Glucose 148 H, Calcium 8.9, Magnesium 2.0 Micro: Microbiology 09/04/23 17:15 Blood Culture (Wb) - Anticubital Left Blood Culture - Preliminary Klebsiella pneumoniae sp pneum 09/04/23 15:40 Blood Culture (Wb) - Chest Blood Culture - Preliminary Klebsiella pneumoniae sp pneum Proteus mirabilis 09/04/23 16:20 Urine, Clean Catch Urine Culture - Final Klebsiella pneumoniae sp pneum Rhythm Strip Rhythm Strip: Sinus Tach Rate: 120 Ectopy: None
[2023-09-07] MEDS: Senna/Docusate Sodium 1 Tablet 2 TABLET PO ×2 (10:35→21:15)
[2023-09-07] MEDS: Polyethylene Glycol 3350 17 GM PACKET PO (10:36)
[2023-09-07] MEDS: Ceftriaxone 2 GM in 0.9% Normal Saline (50mL MB+) 50 ML IV (10:52)
[2023-09-07] MEDS: Enoxaparin 40 MG/0.4 ML Syringe SC (10:53)
[2023-09-07] MEDS: Famotidine 20 MG Tablet PO ×2 (10:53→21:15)
[2023-09-07] MEDS: Tolterodine Tartrate 2 MG CAP.SA PO (10:53)
--- NOTE | 2023-09-07 11:35 | CASEMGMT ---
Discharge Planning Call received from patients Kiera Brian CM. She requested follow up upon dc. [phone]. SW updated. Paloma Castillo, Discharge Planning Asst.
[2023-09-07] MEDS: Cefepime HCl 2 GM in 0.9% Normal Saline (100mL MB+) 100 ML IV ×2 (14:31→21:11)
[2023-09-07] MEDS: oxyCODONE 5 MG Tablet PO ×2 (14:32→21:16)
[2023-09-07] MEDS: Ondansetron 4 MG/2 ML Vial IV (14:33)
--- NOTE | 2023-09-07 15:03 | CASEMGMT ---
Hospitalist states during rounds that he would like a Palliative care consult. Palliative care consulted at this time via email and given the pt face sheet, Palliative care screening tool, and palliative care order.
--- NOTE | 2023-09-07 15:18 | PCM.PN.HOSP ---
Reason for Visit Reason for Visit: Diagnoses Enterocolitis due to Clostridium difficile, not specified as recurrent (09/04/23) Sepsis, unspecified organism (09/04/23) Malignant neoplasm of rectosigmoid junction (09/04/23) Secondary malignant neoplasm of retroperitoneum and peritoneum (09/04/23) Anemia, unspecified (09/04/23) Other disorders of plasma-protein metabolism, not elsewhere classified (09/04/23) Acute kidney failure, unspecified (09/04/23) Urinary tract infection, site not specified (09/04/23) Severe sepsis without septic shock (09/04/23) Bacteremia (09/04/23) Subjective Subjective Patient transferred to PCU overnight, no other acute issues. Patient seen at bedside this morning. Sitting comfortably in bed, conversing normally, no acute distress. Patient was seen by oncology yesterday afternoon. States that he is aware that any further chemotherapy going forward would be palliative chemotherapy and that unfortunately his prognosis due to his recurrent metastatic cancer is poor. Patient was started on a clear liquid diet by general surgery this morning, has been eating some Jell-O and tolerating this without issue. No episodes of nausea or vomiting this morning. Denies any abdominal pain or discomfort. Denies any other pain or discomfort this morning. No other acute concerns. Objective Data Objective Data Vital Signs: Vital Signs Temp Pulse Resp BP Pulse Ox O2 Del Method FiO2 99.7 F H 89 16 119/87 H 97 Room Air 99 09/07/23 13:36 09/07/23 13:36 09/07/23 13:36 09/07/23 13:36 09/07/23 13:36 09/07/23 13:36 09/05/23 08:00 Oxygen Delivery Method Room Air Weight: 78.4 kg Body Mass Index (BMI) 28.8 Intake & Output: Intake and Output for Last 24 Hours 09/05/23 09/06/23 09/07/23 23:59 23:59 23:59 Intake Total 150 / 150 2716.25 / 2716.25 2628.75 / 2628.75 Output Total 4835 / 4835 2915 / 2915 3125 / 3125 Balance -4685 / -4685 -198.75 / -198.75 -496.25 / -496.25 Medical Nutrition Assessment Dietitian: Malnutrition Criteria Met Start: 09/05/23 09:32 Freq: Status: Active Protocol: Document 09/05/23 09:32 SLA (Rec: 09/05/23 09:32 SLA Desktop) Nutrition Malnutrition Evidence of Malnutrition Exists Yes Malnutrition (severe): Chronic Evidenced By Suboptimal Energy Intake ( Severe),Weight Loss (Severe) Intake Problem Increased Nutrient Needs (specify) Etiology protein r/t skin status Signs/Symptoms as evidenced by need for wound vac to abd wall and PI coccyx Status Active Problem Inadequate Oral Intake Etiology related to acute illness Signs/Symptoms as evidenced by NPO status Status Active Problem Recommendation Dietitian Recommendations/Changes As medically able, rec MATI to Consistent CHO w/ 4 oz glucerna shake tid w/ meals As medically able, rec Josemanuel bid to help w/ wound healing Lab / Micro Data 09/07/23 06:54 09/07/23 06:54 Labs: Laboratory Results - last 24 hr 09/07/23 06:54: WBC 7.2, RBC 2.90 L, Hgb 7.5 L, Hct 24.9 L, MCV 85.9 D, MCH 25.9 L, MCHC 30.1 L, RDW Std Deviation 43.2, RDW Coeff of Ajay 13.8, Plt Count 318, MPV 9.5, Sodium 140, Potassium 3.4 L, Chloride 107, Carbon Dioxide 27.0, Anion Gap 6, BUN 18, Creatinine 1.12, Estim Creat Clear Calc 82.52, Est GFR (MDRD) Af Amer 92, Est GFR (MDRD) Non-Af 76, BUN/Creatinine Ratio 16.1, Glucose 148 H, Calcium 8.9, Magnesium 2.0 Micro: Microbiology 09/04/23 17:15 Blood Culture (Wb) - Anticubital Left Blood Culture - Preliminary Klebsiella pneumoniae sp pneum 09/04/23 15:40 Blood Culture (Wb) - Chest Blood Culture - Preliminary Klebsiella pneumoniae sp pneum Proteus mirabilis 09/04/23 16:20 Urine, Clean Catch Urine Culture - Final Klebsiella pneumoniae sp pneum 09/04/23 23:25 Stool Enteric Bacteriology - Final 09/04/23 23:25 Stool C. difficile GDH Antigen & Toxins - Final Toxigenic C. difficile 09/04/23 23:25 Stool Clostridioides difficile (PCR) - Final 02/03/24 16:05 Mucosa - Nose SARS-CoV-2, Influenza & RSV (PCR) - Final Rhythm Strip Rhythm Strip: Sinus Tach Rate: 120 Ectopy: None Physical Exam Const alert, oriented x3, no apparent distress and average body habitus Constitutional Narrative: Pleasant middle-age male, fatigued, otherwise laying comfortably in bed, conversing normally, no acute distress. General Appearance: cooperative and comfortable HEENT normocephalic, head/scalp atraumatic, hearing grossly normal bilaterally, nasal mucous membranes and turbinates normal and moist oral mucous membranes Eyes PERRL, EOMs intact bilaterally and conjunctivae normal Neck full ROM, no lymphadenopathy and supple Lymph Lymphatic: no lymphadenopathy noted Chest inspection of chest normal Resp normal respiratory effort, normal air movement, no use of accessory muscles and clear to auscultation bilaterally Cardio regular rate, regular rhythm, no murmurs and peripheral pulses 2+ throughout GI GI Narrative: Colostomy bag noted. Large central incision also noted with all maurilio now removed, incision appears to be healing well. Mild abdominal tenderness and distention, otherwise soft palpation, no guarding noted. Back/Spine normal ROM Extremity normal to inspection, full ROM and no pedal edema Skin no rashes or lesions noted Neuro no focal motor deficits and no sensory deficits noted Speech: speech normal Psych mental status grossly normal Assessment & Plan Assessment/Plan (1) C. difficile colitis: (2) Sepsis: QUALIFIERS: Sepsis type: sepsis due to unspecified organism Sepsis acute organ dysfunction status: with acute organ dysfunction Severe sepsis acute organ dysfunction type: acute renal failure Acute renal failure type: unspecified Severe sepsis shock status: without septic shock Qualified Code(s): A41.9 - Sepsis, unspecified organism; R65.20 - Severe sepsis without septic shock; N17.9 - Acute kidney failure, unspecified (3) Complicated UTI (urinary tract infection): (4) Primary malignant neoplasm of colorectal area with metastasis: (5) DAMIAN (acute kidney injury): PLAN: Plan Patient is a 43-year-old male who presented to [facility] ED on 09/04/2023 for worsening abdominal pain and fevers. 1. Sepsis without shock secondary to complicated UTI versus C. difficile infection, improving Presented with high-grade fever, tachycardia, leukocytosis, DAMIAN and hypotension responsive to IV fluids. C. difficile positive on 09/04. Urine culture and blood cultures from 09/[address] abdomen pelvis on admit showed stable bilateral double-J stent catheters, moderate to large amount of fecal material seen within the colon, PEG tube in stomach with stomach fully distended. S/p IV fluids on admission with improvement in hypotension. ? General surgery following. Forest [employer] Prevention Manager followed. Infectious disease consulted on 09/07 as noted below. Continue IV ceftriaxone for now. Continue p.o. vancomycin. Advance to clear liquid diet per general surgery on 09/07, will monitor closely to see if patient tolerates this diet. Maintenance IV fluids discontinued on 09/07. Continue senna and MiraLAX for bowel regimen. 2. Gram-negative bacteremia ?Blood cultures +09/03 positive for Klebsiella on 09/04. Urine culture also positive for Klebsiella, presumed urinary source. Infectious disease consulted. Culture drawn off chemotherapy port on 09/07 to determine if port may still be salvageable. Continue treatment with ceftriaxone for now. 3. Recurrent metastatic rectal cancer Initially diagnosed in September 2021. Followed with oncology and colorectal surgery at [facility] until recently. Per our oncologist note, patient did complete neoadjuvant chemotherapy and had surgery to remove his rectal mass at the end of . He unfortunately had recurrence of the rectal mass with peritoneal carcinomatosis noted in 06/2023. Patient lives in [place] near [place] but due to his worsening functional status, he recently moved back in with his mother who lives close to [place]. Plan was to establish with oncology in this area to discuss palliative chemotherapy. ? Oncology following. Palliative care/hospice consulted on 09/07. Continue oxycodone 5 mg every 4 hours as needed, IV Dilaudid 0.5 mg every 3 hours as needed for pain management. Zofran as needed for nausea. Appreciate palliative care recs for pain management. 4. DAMIAN, resolved Creatinine peaked at 2.25 on 09/04, baseline creatinine around 1.1-1.4. Presumed prerenal DAMIAN in setting of sepsis as noted above. CT abdomen pelvis on admit showed no evidence of obstruction. ? Resolved, creatinine 1.12 on 09/07 with adequate urine output. 5. Moderate protein calorie malnutrition secondary to colorectal cancer and surgery ? Patient has been n.p.o. since 09/03. Surgery following as above. Advance to clear liquid diet on 09/07, will monitor how patient tolerates his diet. If patient does not do well with his diet, will likely need to discuss TPN with patient going forward. 6. History of small bowel obstruction Followed with general surgery in [place]. Had diverting colostomy placed there about 1 month prior to this admission. Surgical scar from navel to pubis appears to be healing well. ? Surgery following as above. All surgical maurilio removed as of 09/07. On bowel regimen as noted above. Chronic medical conditions: ? Hyperlipidemia: Continue home statin. ? GERD: Continue home Pepcid. ? Hypertension: Holding home lisinopril, restart when able. ? Depression, insomnia: Continue home mirtazapine. ? Type 2 diabetes mellitus: On home metformin 500 mg daily, linagliptin 5 mg daily, semaglutide 1 mg/week. Patient currently n.p.o. due to C. difficile infection with constipation and persistent ileus as noted above. Okay to hold off on sliding-scale insulin regimen with glucose checks for now, will plan to start this once patient has a diet. DVT prophylaxis: Lovenox CODE STATUS: Full code, verified Expected disposition: TBD Total clinical time spent by myself addressing the patient's medical issues, reviewing all the data, and collaborating with patient's care team: 35 minutes. Charges/Coding Visit Charges Inpatient E&M: 65877 Subs Hosp L2
[2023-09-07] MEDS: Alteplase 2 MG/2 ML Vial IV (15:35)
[2023-09-07] MEDS: 0.9% Saline Lock 10 ML Syringe IV (15:35)
[2023-09-07 16:14] LABS: Ferritin 967 ng/mL (26-388); Iron 24 ug/dL (65-175); Iron Binding Capacity,Total 152 ug/dL (250-450); PERCENT IRON SATURATION 15.8 % (15.0-55.0)
[2023-09-07] MEDS: Acetaminophen 325 MG Tablet 650 MG PO (19:31)
[2023-09-07] MEDS: Mirtazapine 15 MG Tablet PO (21:15)
[2023-09-07] MEDS: Atorvastatin Calcium 40 MG Tablet PO (21:15)
[2023-09-08] MEDS: Vancomycin 125 MG/5 ML Susp PO.SYRINGE PO ×4 (00:02→17:34)
[2023-09-08 04:00] VITALS: BP 124/86; PULSE 99; RESP 16; TEMP 36.7; O2SAT 96
[2023-09-08 04:29] VITALS: BMI 28.8
[2023-09-08] MEDS: Cefepime HCl 2 GM in 0.9% Normal Saline (100mL MB+) 100 ML IV ×3 (05:05→21:09)
[2023-09-08] MEDS: oxyCODONE 5 MG Tablet PO ×3 (05:06→21:17)
[2023-09-08 07:41] VITALS: O2SAT 96
[2023-09-08 08:25] LABS: Hematocrit 27.4 % (40-54); Hemoglobin 8.4 g/dL (13.0-16.5); Mean Corp Hgb Conc 30.7 g/dL (32-36); Mean Corpuscular Hgb 25.9 pg (27.0-32.0); Mean Corpuscular Volume 84.6 fL (80-94); Mean Platelet Vol. 9.4 fl (6.2-12.0); Platelet Count 364 K/mm3 (150-450); RBC Distribution Width CV 13.6 % (11.6-14.6); RBC Distribution Width SD 42.4 fl (35.1-43.9); Red Blood Count 3.24 M/mm3 (4.6-6.2); White Blood Count 5.2 K/mm3 (4.4-11.0)
[2023-09-08 09:03] VITALS: BP 130/99; PULSE 96; RESP 14; TEMP 36.4; O2SAT 99
[2023-09-08] MEDS: Enoxaparin 40 MG/0.4 ML Syringe SC (09:05)
[2023-09-08] MEDS: Polyethylene Glycol 3350 17 GM PACKET PO (09:05)
[2023-09-08] MEDS: Senna/Docusate Sodium 1 Tablet 2 TABLET PO ×2 (09:06→21:10)
[2023-09-08] MEDS: Famotidine 20 MG Tablet PO ×2 (09:06→21:13)
[2023-09-08 09:11] LABS: Vitamin B12 663 pg/mL (211-911)
[2023-09-08 09:14] LABS: Anion Gap 3 (5-15); BUN 15 mg/dL (7-18); BUN/Creat Ratio 10.5 RATIO (10-20); Calcium,Total 8.7 mg/dL (8.5-10.1); Chloride 105 mmol/L (98-107); Creatinine, Serum 1.43 mg/dL (0.70-1.30); EST Glomerular Filtration Rate 58 mL/min (>60); Est Glom Filt Rate - Afr Amer 70 mL/min (>60); Estimated Creatinine Clearance 65.05 ml/min; Glucose 147 mg/dL (74-106); Potassium 3.6 mmol/L (3.5-5.1); Sodium Level 135 mmol/L (136-145)
--- NOTE | 2023-09-08 13:17 | CASEMGMT ---
SARAH called [facility] to schedule patient's appointment. SARAH left a message requesting a return call. Await return call. Sunita CHAPMAN
[2023-09-08 15:04] VITALS: BP 135/89; PULSE 90; RESP 18; TEMP 36.9; O2SAT 97
--- NOTE | 2023-09-08 15:29 | PN.HOSP_ITS ---
Reason for Visit Reason for Visit: Diagnoses Enterocolitis due to Clostridium difficile, not specified as recurrent ( 4) Sepsis, unspecified organism (09/04/23) Malignant neoplasm of rectosigmoid junction (09/04/23) Secondary malignant neoplasm of retroperitoneum and peritoneum (09/04/23) Anemia, unspecified (09/04/23) Other disorders of plasma-protein metabolism, not elsewhere classified (09/04/23) Acute kidney failure, unspecified (09/04/23) Urinary tract infection, site not specified (09/04/23) Severe sepsis without septic shock (09/04/23) Bacteremia (09/04/23) Subjective Subjective No acute events overnight. Patient seen at bedside this morning. Patient was laying comfortably in bed, no acute distress. He did appear moderately fatigued during our encounter today. Stated that he generally feels fatigued and somewhat depressed due to his medical condition. He has been tolerating a clear liquid diet well this morning, no nausea or vomiting. Denies any other acute concerns this time. Objective Data Objective Data Vital Signs: Vital Signs Temp Pulse Resp BP Pulse Ox O2 Del Method FiO2 98.4 F 90 18 135/89 H 97 Room Air 99 09/08/23 15:04 09/08/23 15:04 09/08/23 15:04 09/08/23 15:04 09/08/23 15:04 09/08/23 15:04 09/05/23 08:00 Oxygen Delivery Method Room Air Weight: 78.6 kg Body Mass Index (BMI) 28.8 Intake & Output: Intake and Output for Last 24 Hours 09/06/23 09/07/23 09/08/23 23:59 23:59 23:59 Intake Total 2716.25 / 2716.25 3028.75 / 3028.75 680 / 680 Output Total 2915 / 2915 3775 / 3775 1750 / 1750 Balance -198.75 / -198.75 -746.25 / -746.25 -1070 / -1070 Medical Nutrition Assessment Dietitian: Malnutrition Criteria Met Start: 09/05/23 09:32 Freq: Status: Active Protocol: Document 09/05/23 09:32 SLA (Rec: 09/05/23 09:32 SLA Desktop) Nutrition Malnutrition Evidence of Malnutrition Exists Yes Malnutrition (severe): Chronic Evidenced By Suboptimal Energy Intake ( Severe),Weight Loss (Severe) Intake Problem Increased Nutrient Needs (specify) Etiology protein r/t skin status Signs/Symptoms as evidenced by need for wound vac to abd wall and PI coccyx Status Active Problem Inadequate Oral Intake Etiology related to acute illness Signs/Symptoms as evidenced by NPO status Status Active Problem Recommendation Dietitian Recommendations/Changes As medically able, rec MATI to Consistent CHO w/ 4 oz glucerna shake tid w/ meals As medically able, rec Josemanuel bid to help w/ wound healing Lab / Micro Data 09/08/23 07:45 09/08/23 07:45 Labs: Laboratory Results - last 24 hr 09/07/23 06:54: Iron 24 L, TIBC 152 L, Iron Saturation 15.8, Ferritin 967 H, Folate 11.20 09/08/23 07:45: WBC 5.2, RBC 3.24 L, Hgb 8.4 L, Hct 27.4 L, MCV 84.6, MCH 25.9 L , MCHC 30.7 L, RDW Std Deviation 42.4, RDW Coeff of Ajay 13.6, Plt Count 364, MPV 9.4, Sodium 135 L, Potassium 3.6, Chloride 105, Carbon Dioxide 27.0, Anion Gap 3 L, BUN 15, Creatinine 1.43 H, Estim Creat Clear Calc 65.05, Est GFR (MDRD) Af Amer 70, Est GFR (MDRD) Non-Af 58 L, BUN/Creatinine Ratio 10.5, Glucose 147 H, Calcium 8.7, Vitamin B12 663 Micro: Microbiology 09/04/23 17:15 Blood Culture (Wb) - Anticubital Left Blood Culture - Preliminary Klebsiella pneumoniae sp pneum 09/04/23 15:40 Blood Culture (Wb) - Chest Blood Culture - Preliminary Klebsiella pneumoniae sp pneum Proteus mirabilis 09/04/23 16:20 Urine, Clean Catch Urine Culture - Final Klebsiella pneumoniae sp pneum 09/04/23 23:25 Stool Enteric Bacteriology - Final 09/04/23 23:25 Stool C. difficile GDH Antigen & Toxins - Final Toxigenic C. difficile 09/04/23 23:25 Stool Clostridioides difficile (PCR) - Final 09/04/23 16:05 Mucosa - Nose SARS-CoV-2, Influenza & RSV (PCR) - Final Rhythm Strip Rhythm Strip: Sinus Tach Rate: 120 Ectopy: None Physical Exam Const alert, oriented x3, no apparent distress and average body habitus Constitutional Narrative: Pleasant middle-age male, fatigued, otherwise laying comfortably in bed, conversing normally, no acute distress. General Appearance: cooperative and comfortable HEENT normocephalic, head/scalp atraumatic, hearing grossly normal bilaterally, nasal mucous membranes and turbinates normal and moist oral mucous membranes Eyes PERRL, EOMs intact bilaterally and conjunctivae normal Neck full ROM, no lymphadenopathy and supple Lymph Lymphatic: no lymphadenopathy noted Chest inspection of chest normal Resp normal respiratory effort, normal air movement, no use of accessory muscles and clear to auscultation bilaterally Cardio regular rate, regular rhythm, no murmurs and peripheral pulses 2+ throughout GI GI Narrative: Colostomy bag noted. Large central incision also noted with all maurilio now removed, incision appears to be healing well. Mild abdominal tenderness and dis tention, otherwise soft palpation, no guarding noted. Back/Spine normal ROM Extremity normal to inspection, full ROM and no pedal edema Skin no rashes or lesions noted Neuro no focal motor deficits and no sensory deficits noted Speech: speech normal Psych mental status grossly normal Assessment & Plan Assessment/Plan (1) C. difficile colitis: (2) Sepsis: QUALIFIERS: Sepsis type: sepsis due to unspecified organism Sepsis acute organ dysfunction status: with acute organ dysfunction Severe sepsis acute organ dysfunction type: acute renal failure Acute renal failure type: unspecified Severe sepsis shock status: without septic shock Qualified Code(s): A41.9 - Sepsis, unspecified organism; R65.20 - Severe sepsis without septic shock; N17.9 - Acute kidney failure, unspecified (3) Complicated UTI (urinary tract infection): (4) Primary malignant neoplasm of colorectal area with metastasis: (5) DAMIAN (acute kidney injury): PLAN: Plan Patient is a 43-year-old male who presented to [facility] ED on 09/04/2023 for worsening abdominal pain and fevers. 1. Sepsis without shock secondary to complicated UTI versus C. difficile infection, improving Presented with high-grade fever, tachycardia, leukocytosis, DAMIAN and hypotension responsive to IV fluids. C. difficile positive on 09/04. Urine culture and blood cultures from 09/[address] abdomen pelvis on admit showed stable bilateral double-J stent catheters, moderate to large amount of fecal material seen within the colon, PEG tube in stomach with stomach fully dis tended. S/p IV fluids on admission with improvement in hypotension. ? General surgery, infectious disease and GI following. Orthotist Prosthetist followed. Continue IV ceftriaxone for now. Continue p.o. vancomycin. Advance to clear liquid diet per general surgery on 09/07, will monitor closely to see if patient tolerates this diet. Maintenance IV fluids discontinued on 09/07. Continue senna and MiraLAX for bowel regimen. 2. Gram-negative bacteremia ?Blood cultures +09/03 positive for Klebsiella on 09/04. Urine culture also positive for Klebsiella, presumed urinary source. Infectious disease consulted. Culture drawn off chemotherapy port on 09/07 to determine if port may still be salvageable. Continue treatment with ceftriaxone for now. 3. Recurrent metastatic rectal cancer Initially diagnosed in September 2021. Followed with oncology and colorectal surgery at [facility] until recently. Per our oncologist note, patient did complete neoadjuvant chemotherapy and had surgery to remove his rectal mass at the end . He unfortunately had recurrence of the rectal mass with peritoneal carcinomatosis noted in 06/2023. Patient lives in [place] near [place] but due to his worsening functional status, he recently moved back in with his mother who lives close to [place]. Plan was to establish with oncology in this area to discuss palliative chemotherapy. ? Oncology following. Palliative care/hospice consulted on 09/07. Continue oxycodone 5 mg every 4 hours as needed, IV Dilaudid 0.5 mg every 3 hours as needed for pain management. Zofran as needed for nausea. Appreciate palliative care recs for pain management. 4. DAMIAN, resolved Creatinine peaked at 2.25 on 09/04, baseline creatinine around 1.1-1.4. Presumed prerenal DAMIAN in setting of sepsis as noted above. CT abdomen pelvis on admit showed no evidence of obstruction. ? Resolved, creatinine 1.12 on 09/07 with adequate urine output. 5. Moderate protein calorie malnutrition secondary to colorectal cancer and surgery ? Patient has been n.p.o. since 09/03. Surgery following as above. Advance to clear liquid diet on 09/07, will monitor how patient tolerates his diet. If patient does not do well with his diet, will likely need to discuss TPN with patient going forward. 6. History of small bowel obstruction Followed with general surgery in [place]. Had diverting colostomy placed there about 1 month prior to this admission. Surgical scar from navel to pubis appears to be healing well. ? Surgery following as above. All surgical maurilio removed as of 09/07. On bowel regimen as noted above. Chronic medical conditions: ? Hyperlipidemia: Continue home statin. ? GERD: Continue home Pepcid. ? Hypertension: Holding home lisinopril, restart when able. ? Depression, insomnia: Continue home mirtazapine. ? Type 2 diabetes mellitus: On home metformin 500 mg daily, linagliptin 5 mg daily, semaglutide 1 mg/week. Patient currently n.p.o. due to C. difficile infection with constipation and persistent ileus as noted above. Okay to hold off on sliding-scale insulin regimen with glucose checks for now, will plan to start this once patient has a diet. DVT prophylaxis: Lovenox CODE STATUS: Full code, verified Expected disposition: TBD Total clinical time spent by myself addressing the patient's medical issues, reviewing all the data, and collaborating with patient's care team: 35 minutes. Charges/Coding Visit Charges Inpatient E&M: 76672 [facility] Hosp L2
--- NOTE | 2023-09-08 15:56 | PCM.PN.ID ---
Physical Exam Narrative Feeling better, diarrhea improved, no fever Const alert and no apparent distress Resp normal air movement and clear to auscultation bilaterally Cardio regular rate and regular rhythm GI soft to palpation, non-tender and non-distended Skin no rashes or lesions noted ID ID: Route of nutrition/ use of supplements: [] Nutritional Intake: [] IV Site: [] Forman Catheter: [] Assessment & Plan Assessment/Plan (1) C. difficile colitis: (2) Sepsis: QUALIFIERS: Sepsis type: sepsis due to unspecified organism Sepsis acute organ dysfunction status: with acute organ dysfunction Severe sepsis acute organ dysfunction type: acute renal failure Acute renal failure type: unspecified Severe sepsis shock status: without septic shock Qualified Code(s): A41.9 - Sepsis, unspecified organism; R65.20 - Severe sepsis without septic shock; N17.9 - Acute kidney failure, unspecified PLAN: Sepsis due to klebs and proteus bacteremia with cdiff colitis. Concern for urinary vs GI source of bacteremia. Fever curve improving, wbc now normal, DAMIAN much improved. Cont cefepime and po vanc. Pending bcx from port and periphery to see if port can be salvaged. Will follow (3) Bacteremia due to Gram-negative bacteria:
[2023-09-08 21:00] VITALS: BP 119/85; PULSE 85; RESP 14; TEMP 36.7; O2SAT 98
[2023-09-08] MEDS: Atorvastatin Calcium 40 MG Tablet PO (21:12)
[2023-09-08] MEDS: Mirtazapine 15 MG Tablet PO (21:13)
[2023-09-09 03:00] VITALS: BP 123/79; PULSE 85; RESP 14; TEMP 36.6; O2SAT 96
[2023-09-09 03:11] VITALS: BMI 28.9
[2023-09-09] MEDS: Cefepime HCl 2 GM in 0.9% Normal Saline (100mL MB+) 100 ML IV ×3 (05:10→22:28)
[2023-09-09] MEDS: oxyCODONE 5 MG Tablet PO ×3 (05:10→22:32)
[2023-09-09] MEDS: Vancomycin 125 MG/5 ML Susp PO.SYRINGE PO ×3 (05:12→17:41)
[2023-09-09] MEDS: 0.9% Saline Lock 10 ML Syringe IV ×2 (05:16→16:11)
[2023-09-09] MEDS: 0.9% Normal Saline (250mL Bag) 250 ML 15 ML IV (05:19)
[2023-09-09 07:13] LABS: Hematocrit 25.9 % (40-54); Mean Corp Hgb Conc 30.9 g/dL (32-36); Mean Corpuscular Hgb 25.9 pg (27.0-32.0); Mean Corpuscular Volume 83.8 fL (80-94); Mean Platelet Vol. 9.2 fl (6.2-12.0); Platelet Count 346 K/mm3 (150-450); RBC Distribution Width CV 13.6 % (11.6-14.6); RBC Distribution Width SD 41.7 fl (35.1-43.9); Red Blood Count 3.09 M/mm3 (4.6-6.2); White Blood Count 6.4 K/mm3 (4.4-11.0)
[2023-09-09 07:52] LABS: Anion Gap 7 (5-15); BUN 15 mg/dL (7-18); BUN/Creat Ratio 9.7 RATIO (10-20); Chloride 106 mmol/L (98-107); Creatinine, Serum 1.54 mg/dL (0.70-1.30); EST Glomerular Filtration Rate 53 mL/min (>60); Est Glom Filt Rate - Afr Amer 64 mL/min (>60); Estimated Creatinine Clearance 60.47 ml/min; Glucose 190 mg/dL (74-106); Potassium 3.4 mmol/L (3.5-5.1); Sodium Level 138 mmol/L (136-145)
[2023-09-09 09:00] VITALS: BP 133/95; PULSE 91; RESP 18; TEMP 36.4; O2SAT 100
[2023-09-09] MEDS: Polyethylene Glycol 3350 17 GM PACKET PO (09:45)
[2023-09-09] MEDS: Enoxaparin 40 MG/0.4 ML Syringe SC (09:45)
[2023-09-09] MEDS: Tolterodine Tartrate 2 MG CAP.SA PO (09:46)
[2023-09-09] MEDS: Famotidine 20 MG Tablet PO ×2 (09:46→22:32)
[2023-09-09] MEDS: Senna/Docusate Sodium 1 Tablet 2 TABLET PO ×2 (09:46→22:32)
--- NOTE | 2023-09-09 10:49 | PCM.PN.ID ---
Physical Exam Narrative No fever, feeling better, diarrhea improved. Const alert and no apparent distress Resp normal air movement and clear to auscultation bilaterally Cardio regular rate and regular rhythm GI soft to palpation, non-tender and non-distended Skin no rashes or lesions noted ID ID: Route of nutrition/ use of supplements: [] Nutritional Intake: [] IV Site: [] Forman Catheter: [] Assessment & Plan Assessment/Plan (1) C. difficile colitis: (2) Sepsis: QUALIFIERS: Sepsis type: sepsis due to unspecified organism Sepsis acute organ dysfunction status: with acute organ dysfunction Severe sepsis acute organ dysfunction type: acute renal failure Acute renal failure type: unspecified Severe sepsis shock status: without septic shock Qualified Code(s): A41.9 - Sepsis, unspecified organism; R65.20 - Severe sepsis without septic shock; N17.9 - Acute kidney failure, unspecified PLAN: Sepsis due to klebs and proteus bacteremia with cdiff colitis. Concern for urinary vs GI source of bacteremia. Fever resolved, wbc now normal, DAMIAN much improved. Cont cefepime and po vanc. So far neg bcx from port and periphery to see if port can be salvaged. IV abx to finish tomorrow, then will need 10 more days po vanc and monitor for diarrhea recurrence afterwards. Will follow (3) Bacteremia due to Gram-negative bacteria:
--- NOTE | 2023-09-09 11:12 | CASEMGMT ---
Physician said patient will be ready for discharge in the next couple of days. SW asked Paloma d/c planning advisor to please send updates to [facility] and ask them to start pre-cert. Sunita CHAPMAN
--- NOTE | 2023-09-09 11:54 | CASEMGMT ---
Discharge Planning Udpates sent via [facility] to [facility]. Asked for precert to be started. Paloma Castillo, Discharge Planning Asst.
--- NOTE | 2023-09-09 11:56 | PN.HOSP_ITS ---
Reason for Visit Reason for Visit: Diagnoses Enterocolitis due to Clostridium difficile, not specified as recurrent ( 4) Sepsis, unspecified organism (09/04/23) Malignant neoplasm of rectosigmoid junction (09/04/23) Secondary malignant neoplasm of retroperitoneum and peritoneum (09/04/23) Anemia, unspecified (09/04/23) Other disorders of plasma-protein metabolism, not elsewhere classified (09/04/23) Acute kidney failure, unspecified (09/04/23) Urinary tract infection, site not specified (09/04/23) Severe sepsis without septic shock (09/04/23) Bacteremia (09/04/23) Subjective Subjective No acute events overnight. Patient seen at bedside this morning. Sitting comfortably bed, conversing normally, no acute distress. States he has been tolerating the full code diet without significant issue. Otherwise denies any other acute pain or discomfort this morning. No other acute concerns this time. Objective Data Objective Data Vital Signs: Vital Signs Temp Pulse Resp BP Pulse Ox O2 Del Method FiO2 97.6 F L 91 18 133/95 H 100 Room Air 99 09/09/23 09:00 09/09/23 09:00 09/09/23 09:00 09/09/23 09:00 09/09/23 09:00 09/09/23 09:38 09/05/23 08:00 Oxygen Delivery Method Room Air Weight: 78.8 kg Body Mass Index (BMI) 28.9 Intake & Output: Intake and Output for Last 24 Hours 09/07/23 09/08/23 09/09/23 23:59 23:59 23:59 Intake Total 3028.75 / 3028.75 1260 / 1260 757.5 / 757.5 Output Total 3775 / 3775 2250 / 2250 825 / 825 Balance -746.25 / -746.25 -990 / -990 -67.5 / -67.5 Medical Nutrition Assessment Dietitian: Malnutrition Criteria Met Start: 09/05/23 09:32 Freq: Status: Active Protocol: Document 09/05/23 09:32 SLA (Rec: 09/05/23 09:32 SLA Desktop) Nutrition Malnutrition Evidence of Malnutrition Exists Yes Malnutrition (severe): Chronic Evidenced By Suboptimal Energy Intake ( Severe),Weight Loss (Severe) Intake Problem Increased Nutrient Needs (specify) Etiology protein r/t skin status Signs/Symptoms as evidenced by need for wound vac to abd wall and PI coccyx Status Active Problem Inadequate Oral Intake Etiology related to acute illness Signs/Symptoms as evidenced by NPO status Status Active Problem Recommendation Dietitian Recommendations/Changes As medically able, rec MATI to Consistent CHO w/ 4 oz glucerna shake tid w/ meals As medically able, rec Josemanuel bid to help w/ wound healing Lab / Micro Data 09/09/23 06:35 09/09/23 06:35 Labs: Laboratory Results - last 24 hr 09/09/23 06:35: WBC 6.4, RBC 3.09 L, Hgb 8.0 L, Hct 25.9 L, MCV 83.8, MCH 25.9 L , MCHC 30.9 L, RDW Std Deviation 41.7, RDW Coeff of Ajay 13.6, Plt Count 346, MPV 9.2, Sodium 138, Potassium 3.4 L, Chloride 106, Carbon Dioxide 25.0, Anion Gap 7, BUN 15, Creatinine 1.54 H, Estim Creat Clear Calc 60.47, Est GFR (MDRD) Af Amer 64, Est GFR (MDRD) Non-Af 53 L, BUN/Creatinine Ratio 9.7 L, Glucose 190 H, Calcium 9.0 Micro: Microbiology 09/04/23 17:15 Blood Culture (Wb) - Anticubital Left Blood Culture - Final Klebsiella pneumoniae sp pneum 09/04/23 15:40 Blood Culture (Wb) - Chest Blood Culture - Final Klebsiella pneumoniae sp pneum Proteus mirabilis 09/04/23 16:20 Urine, Clean Catch Urine Culture - Final Klebsiella pneumoniae sp pneum 09/04/23 23:25 Stool Enteric Bacteriology - Final 09/04/23 23:25 Stool C. difficile GDH Antigen & Toxins - Final Toxigenic C. difficile 09/04/23 23:25 Stool Clostridioides difficile (PCR) - Final 09/04/23 16:05 Mucosa - Nose SARS-CoV-2, Influenza & RSV (PCR) - Final Rhythm Strip Rhythm Strip: Sinus Tach Rate: 120 Ectopy: None Physical Exam Const alert, oriented x3, no apparent distress and average body habitus Constitutional Narrative: Pleasant middle-age male, fatigued, otherwise laying comfortably in bed, conversing normally, no acute distress. General Appearance: cooperative, comfortable, well kempt and well developed HEENT normocephalic, head/scalp atraumatic, hearing grossly normal bilaterally, nasal mucous membranes and turbinates normal and moist oral mucous membranes Eyes PERRL, EOMs intact bilaterally and conjunctivae normal Neck full ROM, no lymphadenopathy and supple Lymph Lymphatic: no lymphadenopathy noted Chest inspection of chest normal Resp normal respiratory effort, normal air movement, no use of accessory muscles and clear to auscultation bilaterally Cardio regular rate, regular rhythm, no murmurs and peripheral pulses 2+ throughout GI GI Narrative: Colostomy bag noted. Large central incision also noted with all maurilio now removed, incision appears to be healing well. No abdominal distention or tenderness noted, abdomen soft on palpation. Back/Spine normal ROM Extremity normal to inspection, full ROM and no pedal edema Skin no rashes or lesions noted Neuro no focal motor deficits and no sensory deficits noted Speech: speech normal Psych mental status grossly normal Assessment & Plan Assessment/Plan (1) C. difficile colitis: (2) Sepsis: QUALIFIERS: Sepsis type: sepsis due to unspecified organism Sepsis acute organ dysfunction status: with acute organ dysfunction Severe sepsis acute organ dysfunction type: acute renal failure Acute renal failure type: unspecified Severe sepsis shock status: without septic shock Qualified Code(s): A41.9 - Sepsis, unspecified organism; R65.20 - Severe sepsis without septic shock; N17.9 - Acute kidney failure, unspecified (3) Complicated UTI (urinary tract infection): (4) Primary malignant neoplasm of colorectal area with metastasis: (5) DAMIAN (acute kidney injury): PLAN: Plan Patient is a 43-year-old male who presented to [facility] ED on 09/04/2023 for worsening abdominal pain and fevers. 1. Sepsis without shock secondary to complicated UTI versus C. difficile infection, improving Presented with high-grade fever, tachycardia, leukocytosis, DAMIAN and hypotension responsive to IV fluids. C. difficile positive on 09/04. Urine culture and blood cultures from 09/[address] abdomen pelvis on admit showed stable bilateral double-J stent catheters, moderate to large amount of fecal material seen within the colon, PEG tube in stomach with stomach fully distended. S/p IV fluids on admission with improvement in hypotension. ? General surgery, infectious disease and GI following. Inventory Administrator followed. Continue IV ceftriaxone for now. Continue p.o. vancomycin. Advance to full liquid diet per general surgery on 09/07, tolerating this diet well, will defer to surgery on further advance of diet. Maintenance IV fluids discontinued on 09/07. Continue senna and MiraLAX for bowel regimen. 2. Gram-negative bacteremia ? Blood cultures +09/03 positive for Klebsiella on 09/04. Urine culture also positive for Klebsiella, presumed urinary source. Infectious disease following. Culture drawn off chemotherapy port on 09/07 to determine if port may still be salvageable. Continue treatment with ceftriaxone for now. 3. Recurrent metastatic rectal cancer Initially diagnosed in September 2021. Followed with oncology and colorectal surgery at [facility] until recently. Per our oncologist note, patient did complete neoadjuvant chemotherapy and had surgery to remove his rectal mass at the end of . He unfortunately had recurrence of the rectal mass with peritoneal carcinomatosis noted in 06/2023. Patient lives in [place] near [place] but due to his worsening functional status, he recently moved back in with his mother who lives close to [place]. Plan was to establish with oncology in this area to discuss palliative chemotherapy. ? Oncology following. Palliative care/hospice consulted on 09/07. Continue oxycodone 5 mg every 4 hours as needed, IV Dilaudid 0.5 mg every 3 hours as needed for pain management. Zofran as needed for nausea. Appreciate palliative care recs for pain management. 4. DAMIAN, resolved Creatinine peaked at 2.25 on 09/04, baseline creatinine around 1.1-1.4. Presumed prerenal DAMIAN in setting of sepsis as noted above. CT abdomen pelvis on admit showed no evidence of obstruction. ? Resolved, creatinine 1.12 on 09/07 with adequate urine output. 5. Moderate protein calorie malnutrition secondary to colorectal cancer and surgery ? Patient has been n.p.o. since 09/03. Surgery following as above. Advance to clear liquid diet on 09/07, will monitor how patient tolerates his diet. If patient does not do well with his diet, will likely need to discuss TPN with patient going forward. 6. History of small bowel obstruction Followed with general surgery in [place]. Had diverting colostomy placed there about 1 month prior to this admission. Surgical scar from navel to pubis appears to be healing well. ? Surgery following as above. All surgical maurilio removed as of 09/07. On bowel regimen as noted above. Chronic medical conditions: ? Hyperlipidemia: Continue home statin. ? GERD: Continue home Pepcid. ? Hypertension: Holding home lisinopril, restart when able. ? Depression, insomnia: Continue home mirtazapine. ? Type 2 diabetes mellitus: On home metformin 500 mg daily, linagliptin 5 mg daily, semaglutide 1 mg/week. Patient on full liquid diet, blood sugars have been adequate on BMPs, will hold on prescribing insulin regimen and frequent glucose checks for now. DVT prophylaxis: Lovenox CODE STATUS: Full code, verified Expected disposition: TBD Total clinical time spent by myself addressing the patient's medical issues, reviewing all the data, and collaborating with patient's care team: 35 minutes. Charges/Coding Visit Charges Inpatient E&M: 27565 Subs Hosp L2
--- NOTE | 2023-09-09 12:55 | PN.SURG_ITS ---
Subjective Subjective Patient denies any nausea or pain overnight. Objective Data Objective Data Vital Signs: Vital Signs Temp Pulse Resp BP Pulse Ox O2 Del Method FiO2 97.6 F L 91 18 133/95 H 100 Room Air 99 09/09/23 09:00 09/09/23 09:00 09/09/23 09:00 09/09/23 09:00 09/09/23 09:00 09/09/23 09:38 09/05/23 08:00 Oxygen Delivery Method Room Air Weight: 173 lb 11.588 oz Body Mass Index (BMI) 28.9 Intake & Output: Intake and Output for Last 24 Hours 09/07/23 09/08/23 09/09/23 23:59 23:59 23:59 Intake Total 3028.75 / 3028.75 1260 / 1260 757.5 / 757.5 Output Total 3775 / 3775 2250 / 2250 825 / 825 Balance -746.25 / -746.25 -990 / -990 -67.5 / -67.5 Medical Nutrition Assessment Dietitian: Malnutrition Criteria Met Start: 09/05/23 09:32 Freq: Status: Active Protocol: Document 09/05/23 09:32 SLA (Rec: 09/05/23 09:32 SLA Desktop) Nutrition Malnutrition Evidence of Malnutrition Exists Yes Malnutrition (severe): Chronic Evidenced By Suboptimal Energy Intake ( Severe),Weight Loss (Severe) Intake Problem Increased Nutrient Needs (specify) Etiology protein r/t skin status Signs/Symptoms as evidenced by need for wound vac to abd wall and PI coccyx Status Active Problem Inadequate Oral Intake Etiology related to acute illness Signs/Symptoms as evidenced by NPO status Status Active Problem Recommendation Dietitian Recommendations/Changes As medically able, rec MATI to Consistent CHO w/ 4 oz glucerna shake tid w/ meals As medically able, rec Josemanuel bid to help w/ wound healing Lab / Micro Data 09/09/23 06:35 09/09/23 06:35 Labs: Laboratory Results - last 24 hr 09/09/23 06:35: WBC 6.4, RBC 3.09 L, Hgb 8.0 L, Hct 25.9 L, MCV 83.8, MCH 25.9 L , MCHC 30.9 L, RDW Std Deviation 41.7, RDW Coeff of Ajay 13.6, Plt Count 346, MPV 9.2, Sodium 138, Potassium 3.4 L, Chloride 106, Carbon Dioxide 25.0, Anion Gap 7, BUN 15, Creatinine 1.54 H, Estim Creat Clear Calc 60.47, Est GFR (MDRD) Af Amer 64, Est GFR (MDRD) Non-Af 53 L, BUN/Creatinine Ratio 9.7 L, Glucose 190 H, Calcium 9.0 Micro: Microbiology 09/07/23 11:24 Blood Culture (Wb) - Left Hand Blood Culture - Preliminary No growth in 48 hours. 09/07/23 11:20 Blood Culture (Wb) - Anticubital Left Blood Culture - Preliminary No growth in 48 hours. 09/04/23 17:15 Blood Culture (Wb) - Anticubital Left Blood Culture - Final Klebsiella pneumoniae sp pneum 09/04/23 15:40 Blood Culture (Wb) - Chest Blood Culture - Final Klebsiella pneumoniae sp pneum Proteus mirabilis 09/04/23 16:20 Urine, Clean Catch Urine Culture - Final Klebsiella pneumoniae sp pneum 09/04/23 23:25 Stool Enteric Bacteriology - Final 09/04/23 23:25 Stool C. difficile GDH Antigen & Toxins - Final Toxigenic C. difficile 09/04/23 23:25 Stool Clostridioides difficile (PCR) - Final 09/04/23 16:05 Mucosa - Nose SARS-CoV-2, Influenza & RSV (PCR) - Final Rhythm Strip Rhythm Strip: Sinus Tach Rate: 120 Ectopy: None Physical Exam Const oriented x3 and no apparent distress Resp normal respiratory effort GI soft to palpation and non-tender Assessment & Plan Assessment/Plan (1) Bacteremia due to Gram-negative bacteria: (2) C. difficile colitis: (3) Peritoneal carcinomatosis: PLAN: Plan Yesterday I started the patient on full liquids but after taking some full liquids and he became very bloated and nauseous. His G-tube was placed back to gravity draining a lot of gas drained out which made him feel better. I went up and checked on him in the afternoon yesterday and he still did not want to go back to clamped. At some point yesterday evening he must have been feeling better because when I came in this morning he was back to clamped and he said he tolerated clears. Today he would like to retry full liquids so I will advance him back to full liquids and see how he does with a diet today. There is some stool in his ostomy bag. His abdomen is soft and nontender. Alex Vera MD Pager: [facility] [address] [place] [address], [address] [place] [address] Office:
[2023-09-09 15:00] VITALS: BP 125/85; PULSE 91; RESP 18; TEMP 519.8; TEMP 967.7; O2SAT 97
[2023-09-09] MEDS: Ondansetron 4 MG/2 ML Vial IV (16:11)
--- NOTE | 2023-09-09 16:25 | PCM.HOSP.N ---
Hospitalist Note Had discussion the bedside with the patient this afternoon regarding goals of care. Also talked with patient's brother over the phone at that time. Was notified by Dr. Vera this afternoon that unfortunately patient had to be made n.p.o. again this afternoon with venting of his G-tube due to severe gastric distention and nausea. Patient has now failed advancement of diet for the last several days. Discussed with patient that at this point, there are really 2 main options. The first option which would be more aggressive would be to transfer the patient to a tertiary center for surgical oncology evaluation, and patient would need to be started on TPN for supplemental nutrition. The second option would be hospice care. Told him that if he chose hospice, our hospice team would come in to see him tomorrow and he would likely be an inpatient hospice unit candidate. Patient was not feeling well when I spoke with him, and he and brother asked for some time to make a decision. Will follow-up with him tomorrow morning with the plan being to have a decision from them at that point.
--- NOTE | 2023-09-09 18:40 | CON.PCM.GI_ITS ---
HPI Consult Data Date of Consult: 09/09/23 HPI Narrative Reason for Consultation: Inability to eat and C. difficile infection HPI Narrative: ADAM VEGA, 43 year old male with a PMH significant for rectal cancer. 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 He underwent chemoradiation with capecitabine followed by FOLFOX. He underwent definitive APR with end colostomy on 06/04/22. Path revealed rare signet cell cancer cells with negative margins and [address] his initial surgical course was complicated by perirectal abscess. A PET/CT performed on 06/19/23 demonstrated postoperative changes of the prior rectal surgery with intense radiotracer activity corresponding to ill-defined density in the presacral region abutting the posterior aspect of the urinary bladder concerning for neoplastic process. 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 He also had bilateral ureteral stents placed to address bilateral hydronephrosis. Began palliative FOLFIRI (no bevacizumab given with cycle 1) on 07/27/23. Patient presented to [facility] ED on 07/31/23 with symptoms consistent with SBO. A CT A/P with IV contrast was performed 07/30/23 which showed diffuse ascites within the abdomen and pelvis, ill-defined opacities in the omentum and non specific bladder wall thickening. He subsequently went on to have an exploratory laparotomy, G-tube placement, enteroenteric bypass, extensive lysis of adhesions on 08/03/23 (again abdominal mass biopsied confirmed presence of signet ring cell adenocarcinoma [id number]). He was then discharged to F, recently moved to an F in [facility] to be closer to family. He presented to [facility] ED on 09/03/23 by squad from [facility] with c/o increased abd pain and distention.? CT A/P with contrast showed evidence of atelectasis in the lung bases, ascites, surgical anastomosis midportion transverse colon with residual f ecal material throughout, small bowel ostomy left anterior abdominal wall, stable bilateral double-J stents, presacral soft tissue prominence and identification of PEG tube. His?nausea improved with suction of PEG tube site and he was discharged back to [facility]. On 09/04/23 presented to [facility] ED with c/o fever. Found to be hypotensive and tachycardic. ?Labs demonstrated neutrophilia and Cr elevated to 2.25. Urine concerning for infection.? Admitted for management of sepsis, suspected complicated UTI with DAMIAN.??Later tested positive for C Diff. Currently is being seen by surgical services, infectious disease, wildlife ecology professor services and hospitalist services. I was consulted to see him due to persistent nausea vomiting and lack of nutrition. Patient is very distraught and upset and would like to do everything he can to extend his life but he is not sure if that is possible at this time. [facility] Medical History Abnormal colonoscopy Anemia Anxiety and depression Diabetes History of flexible sigmoidoscopy Hyperlipemia Hypoalbuminemia Malignant neoplasm of colorectal area with metastasis Monoallelic mutation of MIK gene Neuropathy Obesity Peritoneal carcinomatosis Port-A-Cath in place Seizures Home Medications cephalexin 500 mg capsule 500 mg PO Q12 #14 CAPSULES 06/21/22 [Rx Last Taken Unknown] atorvastatin 40 mg tablet 40 mg PO DAILY CHOLESTEROL 07/30/23 [History Last Taken Unknown] linagliptin 5 mg tablet (Tradjenta) 5 mg PO DAILY 07/30/23 [History Last Taken Unknown] morphine 30 mg tablet,extended release 30 mg PO Q12H PRN pain 07/30/23 [History Last Taken Unknown] oxybutynin chloride 5 mg tablet,extended release 24 hr 10 mg PO DAILY URINARY SPASMS 07/30/23 [History Last Taken Unknown] oxycodone 10 mg tablet 10 mg PO Q4H PRN pain 07/30/23 [History Last Taken Unknown] prochlorperazine maleate 10 mg tablet 10 mg PO Q6H PRN nausea 07/30/23 [History Last Taken Unknown] sennosides 8.6 mg-docusate sodium 50 mg tablet (Stool Softener-Laxative) 1 tab- cap PO BID PRN PRN constipation 07/30/23 [History Last Taken Unknown] capecitabine 150 mg tablet 150 mg PO BID 08/24/23 [History Last Taken Unknown] gabapentin 300 mg capsule 300 mg PO DAILY 08/24/23 [History Last Taken Unknown] lisinopril 10 mg tablet 10 mg PO DAILY 08/24/23 [History Last Taken Unknown] metformin 500 mg tablet 500 mg PO DAILY 08/24/23 [History Last Taken Unknown] semaglutide 1 mg/dose (4 mg/3 mL) subcutaneous pen injector (Ozempic) 1 mg subcut QWEEK 08/24/23 [History Last Taken Unknown] dronabinol 5 mg capsule 5 mg PO BID POOR APPETITE 09/04/23 [History Last Taken Unknown] ergocalciferol (vitamin D2) 1,250 mcg (50,000 unit) capsule (Drisdol) 50,000 unit PO QWEEK SUPPLEME 09/04/23 [History Last Taken Unknown] famotidine 20 mg tablet 20 mg PO BID INDIGESTION 09/04/23 [History Last Taken Unknown] mirtazapine 15 mg tablet 15 mg PO QHS DEPRESSION 09/04/23 [History Last Taken Unknown] multivitamin 1 tab PO DAILY SUPPLEMENT 09/04/23 [History Last Taken Unknown] ondansetron HCl 4 mg tablet 4 mg PO Q6H PRN N/V 09/04/23 [History Last Taken Unknown] trazodone 50 mg tablet 25 mg PO QHS INSOMNIA 09/04/23 [History Last Taken Unknown] Allergy/AdvReac Type Severity Reaction Status Date / Time naproxen AdvReac Other Verified 09/04/23 15:05 Family History Father CVA (cerebral vascular accident) Diabetes Agent orange exposure Aunt Colon cancer Grandmother Colon cancer Grandfather Diabetes Surgical History H/O ureteroscopy History of creation of ostomy History of incision and drainage History of laparoscopy Social History Smoking Status: Former smoker Tobacco: How many years used: 10 alcohol intake: current alcohol intake frequency: holidays/special occasions only substance use type: does not use ROS Constitutional Constitutional: Reports fever(s) and headache(s) Eyes Eyes: Denies blurry vision ENT HEENT: Denies abnormal hearing Cardiovascular Cardiovascular: Denies chest pain Respiratory/Chest Respiratory/Chest: Denies dyspnea Gastrointestinal Gastrointestinal: Denies abdominal pain, nausea or vomiting Integumentary Integumentary: Denies jaundice Neurologic Neurologic: Reports numbness and tingling Physical Exam Const oriented x3 and no apparent distress Resp normal respiratory effort GI soft to palpation and non-tender Medical Records Data Medical Nutrition Assessment Dietitian: Malnutrition Criteria Met Start: 09/05/23 09:32 Freq: Status: Active Protocol: Document 09/05/23 09:32 SLA (Rec: 09/05/23 09:32 SLA Desktop) Nutrition Malnutrition Evidence of Malnutrition Exists Yes Malnutrition (severe): Chronic Evidenced By Suboptimal Energy Intake ( Severe),Weight Loss (Severe) Intake Problem Increased Nutrient Needs (specify) Etiology protein r/t skin status Signs/Symptoms as evidenced by need for wound vac to abd wall and PI coccyx Status Active Problem Inadequate Oral Intake Etiology related to acute illness Signs/Symptoms as evidenced by NPO status Status Active Problem Recommendation Dietitian Recommendations/Changes As medically able, rec MATI to Consistent CHO w/ 4 oz glucerna shake tid w/ meals As medically able, rec Josemanuel bid to help w/ wound healing Lab / Micro Data 09/09/23 06:35 09/09/23 06:35 Labs: Laboratory Results - last 24 hr 09/09/23 06:35: WBC 6.4, RBC 3.09 L, Hgb 8.0 L, Hct 25.9 L, MCV 83.8, MCH 25.9 L , MCHC 30.9 L, RDW Std Deviation 41.7, RDW Coeff of Ajay 13.6, Plt Count 346, MPV 9.2, Sodium 138, Potassium 3.4 L, Chloride 106, Carbon Dioxide 25.0, Anion Gap 7, BUN 15, Creatinine 1.54 H, Estim Creat Clear Calc 60.47, Est GFR (MDRD) Af Amer 64, Est GFR (MDRD) Non-Af 53 L, BUN/Creatinine Ratio 9.7 L, Glucose 190 H, Calcium 9.0 Micro: Microbiology 09/07/23 11:24 Blood Culture (Wb) - Left Hand Blood Culture - Preliminary No growth in 48 hours. 09/07/23 11:20 Blood Culture (Wb) - Anticubital Left Blood Culture - Preliminary No growth in 48 hours. 09/04/23 17:15 Blood Culture (Wb) - Anticubital Left Blood Culture - Final Klebsiella pneumoniae sp pneum 09/04/23 15:40 Blood Culture (Wb) - Chest Blood Culture - Final Klebsiella pneumoniae sp pneum Proteus mirabilis Rhythm Strip Rhythm Strip: Sinus Tach Rate: 120 Ectopy: None Assessment & Plan Assessment/Plan (1) Sepsis: QUALIFIERS: Acute renal failure type: unspecified Sepsis acute organ dysfunction status: with acute organ dysfunction Sepsis type: sepsis due to unspecified organism Severe sepsis acute organ dysfunction type: acute renal failure Severe sepsis shock status: without septic shock Qualified Code(s): A41.9 - Sepsis, unspecified organism; R65.20 - Severe sepsis without septic shock; N17.9 - Acute kidney failure, unspecified (2) C. difficile colitis: (3) Nausea & vomiting: PLAN: Plan Possible gastric outlet obstruction versus small bowel obstruction I am not sure if he has than gastric outlet obstruction with small bowel obstruction. He may benefit from GJ tube if he is not going to be hospice. He says that he has to talk to his brother as he is the power of civil attorney and he is undecided regarding what he wants to do. If he is going to do that he would ne ed a upper GI study to see if it is possible. Sepsis The patient presented to the hospital with sepsis due to urinary tract source of infection and C. difficile colitis with acute sepsis related organ dysfunction as evidenced by acute kidney injury. The patient received supplemental IV fluids and he was on empiric antibiotics as ordered with Zosyn and p.o. vancomycin. Currently antibiotics are managed by infectious disease and patient seems to be doing well from an infectious standpoint the patient remains hemodynamically stable at the present time. Acute kidney injury Most likely prerenal in etiology in the setting #1. Along with fluid loss from his PEG tube and poor nutrition. His creatinine has improved with volume expansion. Continue supportive care with antibiotics as ordered. Continue to monitor urine output. No current indication for renal replacement therapy. Metastatic colon cancer on chemotherapy/history of bowel obstruction/history of hydronephrosis with bilateral stents Complicates care, management, recovery and prognosis. Continue supportive measures noted above. Additional recommendations per general surgery and urology. I will continue to follow the patient. Charges/Coding Visit Charges Inpatient E&M: 09577 Init Hosp L3
[2023-09-09 21:00] VITALS: BP 131/86; PULSE 92; RESP 16; TEMP 36.6; O2SAT 97
[2023-09-09] MEDS: Mirtazapine 15 MG Tablet PO (22:32)
[2023-09-09] MEDS: Atorvastatin Calcium 40 MG Tablet PO (22:32)
[2023-09-10] MEDS: Vancomycin 125 MG/5 ML Susp PO.SYRINGE PO ×4 (01:18→18:46)
[2023-09-10] MEDS: HYDROmorphone 0.5 MG/0.5 ML SYRINGE IV ×3 (01:24→20:17)
[2023-09-10] MEDS: 0.9% Saline Lock 10 ML Syringe IV ×4 (01:24→20:17)
[2023-09-10] MEDS: oxyCODONE 5 MG Tablet PO (02:42)
[2023-09-10 03:00] VITALS: BP 124/86; PULSE 87; RESP 16; TEMP 36.3; O2SAT 96
[2023-09-10 03:36] VITALS: BMI 29.1
[2023-09-10] MEDS: Cefepime HCl 2 GM in 0.9% Normal Saline (100mL MB+) 100 ML IV ×3 (06:20→21:26)
[2023-09-10 06:41] LABS: Hemoglobin 8.9 g/dL (13.0-16.5); Mean Corp Hgb Conc 30.7 g/dL (32-36); Mean Corpuscular Hgb 25.6 pg (27.0-32.0); Mean Corpuscular Volume 83.3 fL (80-94); Mean Platelet Vol. 9.3 fl (6.2-12.0); Platelet Count 415 K/mm3 (150-450); RBC Distribution Width CV 13.8 % (11.6-14.6); RBC Distribution Width SD 41.6 fl (35.1-43.9); Red Blood Count 3.48 M/mm3 (4.6-6.2); White Blood Count 9.1 K/mm3 (4.4-11.0)
--- NOTE | 2023-09-10 07:10 | CT_ITS ---
STUDY: CT ABDOMEN AND PELVIS WITH CONTRAST REASON FOR EXAM: Male, 43 years old. Nausea, known carcinomatosis RADIATION DOSAGE (If Supplied By Facility): CTDIvol = ( 15.57 ) mGy, DLP = ( 1179.81 ) mGycm TECHNIQUE: Transaxial images were obtained from the dome of the diaphragm to the symphysis pubis without oral contrast. IV 100mL Isovue-300 was administered. Sagittal and coronal images were reconstructed. Individualized dose optimization techniques were used for this CT. COMPARISON: Comparison is made with prior study dated September 03, 2023. FINDINGS: The tip of the Port-A-Cath. It is at the junction of the superior vena cava and right atrium. Stable mild degree of increased markings at the lung bases slightly more prominent on the right side suggestive of atelectasis. Mild degree of coronary artery calcification. Ascites. Normal liver. Normal gallbladder and extrahepatic biliary system. Normal spleen. Normal pancreas. Normal bilateral adrenal glands. Once again, bilateral double-J stent catheters seen within the kidneys. Mild degree of residual bilateral hydronephrosis. A PEG tube is seen within the stomach. Normal small intestine. Persistent diffuse circumferential wall thickening of the rectum with increased soft tissue density in the presacral space. This is unchanged. Anastomosis is seen in the mid transverse colon. Once again, an ostomy is seen in the anterior left lower quadrant. Normal abdominal aorta. Normal inferior vena cava. Normal retroperitoneum. Stable diffuse bladder wall thickening. Normal abdominal wall. Normal osseous structures. CT/Abdomen/Pelvis W IV Cont ONLY IMPRESSION: Ascites. PEG tube is seen within the stomach. Bilateral double-J catheters in both kidneys with mild hydronephrosis. Diffuse circumferential thickening of the rectum. Bladder wall thickening. There is been essentially no change as compared to prior study. Electronically Signed: Dio Eller MD at 8:47 EST ,
--- NOTE | 2023-09-10 07:18 | PCM.PN.SRG ---
Subjective Subjective Patient was feeling well yesterday so we tried for liquids again but by the afternoon he was once again distended and nauseated and had to be turned back to gravity drain. Objective Data Objective Data Vital Signs: Vital Signs Temp Pulse Resp BP Pulse Ox O2 Del Method FiO2 97.3 F L 87 16 124/86 H 96 Room Air 99 09/10/23 03:00 09/10/23 03:00 09/10/23 03:00 09/10/23 03:00 09/10/23 03:00 09/10/23 04:00 09/05/23 08:00 Oxygen Delivery Method Room Air Weight: 174 lb 13.225 oz Body Mass Index (BMI) 29.1 Intake & Output: Intake and Output for Last 24 Hours 09/08/23 09/09/23 09/10/23 23:59 23:59 23:59 Intake Total 1260 / 1260 1547.5 / 1547.5 200 / 200 Output Total 2250 / 2250 1925 / 1925 600 / 600 Balance -990 / -990 -377.5 / -377.5 -400 / -400 Medical Nutrition Assessment Dietitian: Malnutrition Criteria Met Start: 09/05/23 09:32 Freq: Status: Active Protocol: Document 09/05/23 09:32 SLA (Rec: 09/05/23 09:32 SLA Desktop) Nutrition Malnutrition Evidence of Malnutrition Exists Yes Malnutrition (severe): Chronic Evidenced By Suboptimal Energy Intake ( Severe),Weight Loss (Severe) Intake Problem Increased Nutrient Needs (specify) Etiology protein r/t skin status Signs/Symptoms as evidenced by need for wound vac to abd wall and PI coccyx Status Active Problem Inadequate Oral Intake Etiology related to acute illness Signs/Symptoms as evidenced by NPO status Status Active Problem Recommendation Dietitian Recommendations/Changes As medically able, rec MATI to Consistent CHO w/ 4 oz glucerna shake tid w/ meals As medically able, rec Josemanuel bid to help w/ wound healing Lab / Micro Data 09/10/23 06:20 09/09/23 06:35 Labs: Laboratory Results - last 24 hr 09/09/23 06:35: Sodium 138, Potassium 3.4 L, Chloride 106, Carbon Dioxide 25.0, Anion Gap 7, BUN 15, Creatinine 1.54 H, Estim Creat Clear Calc 60.47, Est GFR (MDRD) Af Amer 64, Est GFR (MDRD) Non-Af 53 L, BUN/Creatinine Ratio 9.7 L, Glucose 190 H, Calcium 9.0 09/10/23 06:20: WBC 9.1, RBC 3.48 L, Hgb 8.9 L, Hct 29.0 L, MCV 83.3, MCH 25.6 L, MCHC 30.7 L, RDW Std Deviation 41.6, RDW Coeff of Ajay 13.8, Plt Count 415, MPV 9.3 Micro: Microbiology 09/07/23 11:24 Blood Culture (Wb) - Left Hand Blood Culture - Preliminary No growth in 48 hours. 09/07/23 11:20 Blood Culture (Wb) - Anticubital Left Blood Culture - Preliminary No growth in 48 hours. 09/04/23 17:15 Blood Culture (Wb) - Anticubital Left Blood Culture - Final Klebsiella pneumoniae sp pneum 09/04/23 15:40 Blood Culture (Wb) - Chest Blood Culture - Final Klebsiella pneumoniae sp pneum Proteus mirabilis 09/04/23 16:20 Urine, Clean Catch Urine Culture - Final Klebsiella pneumoniae sp pneum 09/04/23 23:25 Stool Enteric Bacteriology - Final 09/04/23 23:25 Stool C. difficile GDH Antigen & Toxins - Final Toxigenic C. difficile 09/04/23 23:25 Stool Clostridioides difficile (PCR) - Final 09/04/23 16:05 Mucosa - Nose SARS-CoV-2, Influenza & RSV (PCR) - Final Rhythm Strip Rhythm Strip: Sinus Tach Rate: 120 Ectopy: None Physical Exam Const oriented x3 Resp normal respiratory effort GI soft to palpation and non-tender Assessment & Plan Assessment/Plan (1) Nausea & vomiting: PLAN: The patient has had to go back to gravity drain twice now. I am ordering a CT scan to evaluate the bowel for obstruction. The patient does have obstruction I would recommend either transfer to tertiary center or palliative care as the patient is high risk and in a nutritionally depleted state. Alex Vera MD Pager: [facility] [address] [place] [address], [address] [place] [address] Office:
[2023-09-10 07:21] LABS: Anion Gap 15 (5-15); BUN 13 mg/dL (7-18); BUN/Creat Ratio 8.9 RATIO (10-20); Calcium,Total 9.1 mg/dL (8.5-10.1); Chloride 105 mmol/L (98-107); Creatinine, Serum 1.46 mg/dL (0.70-1.30); EST Glomerular Filtration Rate 56 mL/min (>60); Est Glom Filt Rate - Afr Amer 68 mL/min (>60); Estimated Creatinine Clearance 63.97 ml/min; Glucose 193 mg/dL (74-106); Potassium 3.7 mmol/L (3.5-5.1); Sodium Level 139 mmol/L (136-145)
[2023-09-10 10:16] VITALS: BP 120/94; PULSE 99; RESP 16; TEMP 36.6; O2SAT 101
[2023-09-10] MEDS: Tolterodine Tartrate 2 MG CAP.SA PO (10:19)
[2023-09-10] MEDS: Senna/Docusate Sodium 1 Tablet 2 TABLET PO ×2 (10:20→21:26)
[2023-09-10] MEDS: Polyethylene Glycol 3350 17 GM PACKET PO (10:20)
[2023-09-10] MEDS: Famotidine 20 MG Tablet PO ×2 (10:20→21:26)
[2023-09-10 14:47] VITALS: BP 119/87; PULSE 101; RESP 18; TEMP 36.8; O2SAT 96
[2023-09-10] MEDS: Lidocaine 2% (20 ml mdv) 20 ML Vial INFILT (14:48)
--- NOTE | 2023-09-10 14:51 | PCM.PN.HOSP ---
Reason for Visit Reason for Visit: Diagnoses Enterocolitis due to Clostridium difficile, not specified as recurrent (09/04/23) Sepsis, unspecified organism (09/04/23) Malignant neoplasm of rectosigmoid junction (09/04/23) Secondary malignant neoplasm of retroperitoneum and peritoneum (09/04/23) Anemia, unspecified (09/04/23) Other disorders of plasma-protein metabolism, not elsewhere classified (09/04/23) Acute kidney failure, unspecified (09/04/23) Urinary tract infection, site not specified (09/04/23) Nausea with vomiting, unspecified (09/04/23) Severe sepsis without septic shock (09/04/23) Bacteremia (09/04/23) Subjective Subjective No acute meds overnight. Patient seen at bedside this morning. Patient had been seen by surgery earlier in the morning, CT abdomen pelvis done that showed ascites and mild stool burden. Surgery consulted radiology for planned therapeutic paracentesis. On my interview, patient was sitting up comfortably in bed. Had tolerated liquid diet this morning without significant issue to this point. No other acute concerns at this time. Objective Data Objective Data Vital Signs: Vital Signs Temp Pulse Resp BP Pulse Ox O2 Del Method FiO2 97.8 F 99 16 120/94 H 101 Room Air 99 09/10/23 10:16 09/10/23 10:16 09/10/23 10:16 09/10/23 10:16 09/10/23 10:16 09/10/23 10:16 09/05/23 08:00 Oxygen Delivery Method Room Air Weight: 79.3 kg Body Mass Index (BMI) 29.1 Intake & Output: Intake and Output for Last 24 Hours 09/08/23 09/09/23 09/10/23 23:59 23:59 23:59 Intake Total 1260 / 1260 1547.5 / 1547.5 940 / 940 Output Total 2250 / 2250 1925 / 1925 1000 / 1000 Balance -990 / -990 -377.5 / -377.5 -60 / -60 Medical Nutrition Assessment Dietitian: Malnutrition Criteria Met Start: 09/05/23 09:32 Freq: Status: Active Protocol: Document 09/10/23 11:55 SLA (Rec: 09/10/23 11:55 SLA Desktop) Nutrition Malnutrition Evidence of Malnutrition Exists Yes Malnutrition (severe): Acute Illness/Injury Evidenced By Suboptimal Energy Intake ( Severe),Weight Loss (Severe) Intake Problem Increased Nutrient Needs (specify) Status Inactive Problem Inadequate Oral Intake Status Inactive Problem Clinical Problem Acute Disease or Injury Related Malnutrition Etiology related to inadequate energy intake and GI dysfunction Signs/Symptoms as evidenced by pt w/ <75% po intake of estimated nutritional needs and 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 If unable to tolerate/advance po diet, rec TPN for nutrition if in accordance w/ pt/family wishes - please consult for rec if desired. Lab / Micro Data 09/10/23 06:20 09/10/23 06:20 Labs: Laboratory Results - last 24 hr 09/10/23 06:20: WBC 9.1, RBC 3.48 L, Hgb 8.9 L, Hct 29.0 L, MCV 83.3, MCH 25.6 L, MCHC 30.7 L, RDW Std Deviation 41.6, RDW Coeff of Ajay 13.8, Plt Count 415, MPV 9.3, Sodium 139, Potassium 3.7, Chloride 105, Carbon Dioxide 19.0 L, Anion Gap 15, BUN 13, Creatinine 1.46 H, Estim Creat Clear Calc 63.97, Est GFR (MDRD) Af Amer 68, Est GFR (MDRD) Non-Af 56 L, BUN/Creatinine Ratio 8.9 L, Glucose 193 H, Calcium 9.1 Micro: Microbiology 09/07/23 19:20 Blood Culture (Wb) - Line Draw Blood Culture - Preliminary No growth in 48 hours. 09/07/23 11:24 Blood Culture (Wb) - Left Hand Blood Culture - Preliminary No growth in 48 hours. 09/07/23 11:20 Blood Culture (Wb) - Anticubital Left Blood Culture - Preliminary No growth in 48 hours. 09/04/23 17:15 Blood Culture (Wb) - Anticubital Left Blood Culture - Final Klebsiella pneumoniae sp pneum 09/04/23 15:40 Blood Culture (Wb) - Chest Blood Culture - Final Klebsiella pneumoniae sp pneum Proteus mirabilis 09/04/23 16:20 Urine, Clean Catch Urine Culture - Final Klebsiella pneumoniae sp pneum 02/03/24 23:25 Stool Enteric Bacteriology - Final 09/04/23 23:25 Stool C. difficile GDH Antigen & Toxins - Final Toxigenic C. difficile 09/04/23 23:25 Stool Clostridioides difficile (PCR) - Final 09/04/23 16:05 Mucosa - Nose SARS-CoV-2, Influenza & RSV (PCR) - Final Radiography Diagnostic Testing: Radiology Impression Abdomen/Pelvis CT 09/10/23 07:10 IMPRESSION: Ascites. PEG tube is seen within the stomach. Bilateral double-J catheters in both kidneys with mild hydronephrosis. Diffuse circumferential thickening of the rectum. Bladder wall thickening. There is been essentially no change as compared to prior study. Electronically Signed: Dio Eller MD at 8:47 EST , Rhythm Strip Rhythm Strip: Sinus Tach Rate: 120 Ectopy: None Physical Exam Const alert, oriented x3, no apparent distress and average body habitus Constitutional Narrative: Pleasant middle-age male, fatigued, otherwise sitting up comfortably in bed, conversing normally, no acute distress. General Appearance: cooperative, comfortable, well kempt and well developed HEENT normocephalic, head/scalp atraumatic, hearing grossly normal bilaterally, nasal mucous membranes and turbinates normal and moist oral mucous membranes Eyes PERRL, EOMs intact bilaterally and conjunctivae normal Neck full ROM, no lymphadenopathy and supple Lymph Lymphatic: no lymphadenopathy noted Chest inspection of chest normal Resp normal respiratory effort, normal air movement, no use of accessory muscles and clear to auscultation bilaterally Cardio regular rate, regular rhythm, no murmurs and peripheral pulses 2+ throughout GI GI Narrative: Colostomy bag noted. Large central incision also noted with all maurilio now removed, incision appears to be healing well. Mild abdominal distention noted, but soft and no tenderness on palpation. Back/Spine normal ROM Extremity normal to inspection, full ROM and no pedal edema Skin no rashes or lesions noted Neuro no focal motor deficits and no sensory deficits noted Speech: speech normal Psych mental status grossly normal Assessment & Plan Assessment/Plan (1) C. difficile colitis: (2) Sepsis: QUALIFIERS: Sepsis type: sepsis due to unspecified organism Sepsis acute organ dysfunction status: with acute organ dysfunction Severe sepsis acute organ dysfunction type: acute renal failure Acute renal failure type: unspecified Severe sepsis shock status: without septic shock Qualified Code(s): A41.9 - Sepsis, unspecified organism; R65.20 - Severe sepsis without septic shock; N17.9 - Acute kidney failure, unspecified (3) Complicated UTI (urinary tract infection): (4) Primary malignant neoplasm of colorectal area with metastasis: (5) DAMIAN (acute kidney injury): PLAN: Plan Patient is a 43-year-old male who presented to [facility] ED on 09/04/2023 for worsening abdominal pain and fevers. 1. Sepsis without shock secondary to complicated UTI versus C. difficile infection, improving; Intermittent nausea and vomiting Presented with high-grade fever, tachycardia, leukocytosis, DAMIAN and hypotension responsive to IV fluids. C. difficile positive on 09/04. Urine culture and blood cultures from 09/[address] abdomen pelvis on admit showed stable bilateral double-J stent catheters, moderate to large amount of fecal material seen within the colon, PEG tube in stomach with stomach fully distended. S/p IV fluids on admission with improvement in hypotension. Patient unfortunately has had diet advanced to liquid diet each day since 09/08, initially tolerate diet well but then by early afternoon has significant bloating and distention with nausea and vomiting and has to have G-tube placed back to gravity drain with n.p.o. status. CT abdomen pelvis on 09/10 showed ascites with mild stool burden. ? General surgery, infectious disease and GI following. [employer] followed. Continue IV cefepime and p.o. vancomycin. S/p therapeutic paracentesis with radiology on 09/10 with 1500 mL fluid removed. Patient tolerating full liquid diet for now, continue to monitor closely. Can give enemas as needed through colostomy per surgery recs. 2. Gram-negative bacteremia ? Blood cultures +09/03 positive for Klebsiella on 09/04. Urine culture also positive for Klebsiella, presumed urinary source. Infectious disease following. Culture drawn off chemotherapy port on 09/07 to determine if port may still be salvageable. Continue treatment with cefepime. 3. Recurrent metastatic rectal cancer Initially diagnosed in September 2021. Followed with oncology and colorectal surgery at [facility] until recently. Per our oncologist note, patient did complete neoadjuvant chemotherapy and had surgery to remove his rectal mass at the end of . He unfortunately had recurrence of the rectal mass with peritoneal carcinomatosis noted in 06/2023. Patient lives in [place] near [place] but due to his worsening functional status, he recently moved back in with his mother who lives close to [place]. Plan was to establish with oncology in this area to discuss palliative chemotherapy. ? Oncology followed, palliative care consulted. Ongoing goals of care discussions with patient and his brother as noted in quick note yesterday afternoon. Currently treating as above, will determine next labs based on how well patient tolerates diet. Continue oxycodone 5 mg every 4 hours as needed, IV Dilaudid 0.5 mg every 3 hours as needed for pain management. Zofran as needed for nausea. 4. DAMIAN, resolved Creatinine peaked at 2.25 on 09/04, baseline creatinine around 1.1-1.4. Presumed prerenal DAMIAN in setting of sepsis as noted above. CT abdomen pelvis on admit showed no evidence of obstruction. ? Resolved, creatinine 1.12 on 09/07 with adequate urine output. 5. Moderate protein calorie malnutrition secondary to colorectal cancer and surgery ? Surgery following as above. Attempting to advance diet as noted above, monitor closely. 6. History of small bowel obstruction Followed with general surgery in [place]. Had diverting colostomy placed there about 1 month prior to this admission. Surgical scar from navel to pubis appears to be healing well. ? Surgery following as above. All surgical maurilio removed as of 09/07. On bowel regimen as noted above. Chronic medical conditions: ? Hyperlipidemia: Continue home statin. ? GERD: Continue home Pepcid. ? Hypertension: Holding home lisinopril, restart when able. ? Depression, insomnia: Continue home mirtazapine. ? Type 2 diabetes mellitus: On home metformin 500 mg daily, linagliptin 5 mg daily, semaglutide 1 mg/week. Patient on full liquid diet, blood sugars have been adequate on BMPs, will hold on prescribing insulin regimen and frequent glucose checks for now. DVT prophylaxis: Lovenox CODE STATUS: Full code, verified Expected disposition: TBD Total clinical time spent by myself addressing the patient's medical issues, reviewing all the data, and collaborating with patient's care team: 35 minutes. Charges/Coding Visit Charges Inpatient E&M: 52851 Subs Hosp L2
[2023-09-10 14:58] VITALS: BP 118/82; PULSE 98; RESP 18; O2SAT 96
--- NOTE | 2023-09-10 15:08 | PCM.OP.PRO ---
Procedure Report Date of Procedure: 09/10/23 Assessment & Plan Assessment/Plan (1) Peritoneal carcinomatosis: PLAN: PROCEDURE: Ultrasound guided paracentesis ORDERING PROVIDER: Dr. Vera INDICATION: Male, 43 years old. Peritoneal carcinomatosis. PROVIDER: JERRY Werner TECHNIQUE: The risks, benefits, and alternatives to the procedure were explained to the patient. The specific risks of bleeding, infection, and damage to bowel were detailed and accepted. Witnessed informed consent was obtained. The abdomen was ultrasonographically surveyed. An appropriate pocket of fluid was identified in the right upper quadrant. The skin was prepped with chlorhexidine and sterile field established. 2% lidocaine was used for local anesthetic. Using ultrasound guidance, the peritoneal cavity was accessed with a 5-Setswana paracentesis needle/catheter system. The trocar was removed. A total of 1500 ml of clear merlene colored fluid was removed from the peritoneal cavity. The catheter was removed and a sterile dressing was applied. The procedure was well tolerated. IMPRESSION: Successful ultrasound-guided paracentesis with right upper quadrant access site. Procedures Radiology Radiology US Procedures: 50855 Paracentesis
[2023-09-10 15:11] VITALS: BP 118/88; PULSE 101; RESP 16; TEMP 37.1; O2SAT 97
[2023-09-10 20:00] VITALS: BP 120/89; PULSE 96; RESP 16; TEMP 36.8; O2SAT 95
--- NOTE | 2023-09-10 20:23 | PN.GI_ITS ---
Subjective Subjective Patient is resting comfortably without any complaints. The plan is for him to get paracentesis for malignant societies. Objective Data Objective Data Vital Signs: Vital Signs Temp Pulse Resp BP Pulse Ox O2 Del Method FiO2 98.7 F 101 H 16 118/88 H 97 Room Air 99 09/10/23 15:11 09/10/23 15:11 09/10/23 15:11 09/10/23 15:11 09/10/23 15:11 09/10/23 15:16 09/05/23 08:00 Oxygen Delivery Method Room Air Weight: 174 lb 13.225 oz Body Mass Index (BMI) 29.1 Intake & Output: Intake and Output for Last 24 Hours 09/08/23 09/09/23 09/10/23 23:59 23:59 23:59 Intake Total 1260 / 1260 1547.5 / 1547.5 940 / 940 Output Total 2250 / 2250 1925 / 1925 4750 / 4750 Balance -990 / -990 -377.5 / -377.5 -3810 / -3810 Medical Nutrition Assessment Dietitian: Malnutrition Criteria Met Start: 09/05/23 09:32 Freq: Status: Active Protocol: Document 09/10/23 11:55 SLA (Rec: 09/10/23 11:55 SLA Desktop) Nutrition Malnutrition Evidence of Malnutrition Exists Yes Malnutrition (severe): Acute Illness/Injury Evidenced By Suboptimal Energy Intake ( Severe),Weight Loss (Severe) Intake Problem Increased Nutrient Needs (specify) Status Inactive Problem Inadequate Oral Intake Status Inactive Problem Clinical Problem Acute Disease or Injury Related Malnutrition Etiology related to inadequate energy intake and GI dysfunction Signs/Symptoms as evidenced by pt w/ <75% po intake of estimated nutritional needs and 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 If unable to tolerate/advance po diet, rec TPN for nutrition if in accordance w/ pt/family wishes - please consult for rec if desired. Lab / Micro Data 09/10/23 06:20 09/10/23 06:20 Labs: Laboratory Results - last 24 hr 09/10/23 06:20: WBC 9.1, RBC 3.48 L, Hgb 8.9 L, Hct 29.0 L, MCV 83.3, MCH 25.6 L , MCHC 30.7 L, RDW Std Deviation 41.6, RDW Coeff of Ajay 13.8, Plt Count 415, MPV 9.3, Sodium 139, Potassium 3.7, Chloride 105, Carbon Dioxide 19.0 L, Anion Gap 15, BUN 13, Creatinine 1.46 H, Estim Creat Clear Calc 63.97, Est GFR (MDRD) Af Amer 68, Est GFR (MDRD) Non-Af 56 L, BUN/Creatinine Ratio 8.9 L, Glucose 193 H, Calcium 9.1 Micro: Microbiology 09/07/23 19:20 Blood Culture (Wb) - Line Draw Blood Culture - Preliminary No growth in 48 hours. 09/07/23 11:24 Blood Culture (Wb) - Left Hand Blood Culture - Preliminary No growth in 48 hours. 09/07/23 11:20 Blood Culture (Wb) - Anticubital Left Blood Culture - Preliminary No growth in 48 hours. 09/04/23 17:15 Blood Culture (Wb) - Anticubital Left Blood Culture - Final Klebsiella pneumoniae sp pneum 09/04/23 15:40 Blood Culture (Wb) - Chest Blood Culture - Final Klebsiella pneumoniae sp pneum Proteus mirabilis 09/04/23 16:20 Urine, Clean Catch Urine Culture - Final Klebsiella pneumoniae sp pneum 09/04/23 23:25 Stool Enteric Bacteriology - Final 09/04/23 23:25 Stool C. difficile GDH Antigen & Toxins - Final Toxigenic C. difficile 09/04/23 23:25 Stool Clostridioides difficile (PCR) - Final 09/04/23 16:05 Mucosa - Nose SARS-CoV-2, Influenza & RSV (PCR) - Final Radiography Diagnostic Testing: Radiology Impression Abdomen/Pelvis CT 09/10/23 07:10 IMPRESSION: Ascites. PEG tube is seen within the stomach. Bilateral double-J catheters in both kidneys with mild hydronephrosis. Diffuse circumferential thickening of the rectum. Bladder wall thickening. There is been essentially no change as compared to prior study. Electronically Signed: Dio Eller MD at 8:47 EST , Rhythm Strip Rhythm Strip: Sinus Tach Rate: 120 Ectopy: None Physical Exam Const oriented x3 Resp normal respiratory effort GI soft to palpation and non-tender Assessment & Plan Assessment/Plan (1) Sepsis: QUALIFIERS: Sepsis type: sepsis due to unspecified organism Sepsis acute organ dysfunction status: with acute organ dysfunction Severe sepsis acute organ dysfunction type: acute renal failure Acute renal failure type: unspecified Severe sepsis shock status: without septic shock Qualified Code(s): A41.9 - Sepsis, unspecified organism; R65.20 - Severe sepsis without septic shock; N17.9 - Acute kidney failure, unspecified (2) C. difficile colitis: (3) Nausea & vomiting: PLAN: Plan Possible gastric outlet obstruction versus small bowel obstruction I am not sure if he has than gastric outlet obstruction with small bowel obstruction. He may benefit from GJ tube if he is not going to be hospice. 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 If he is going to do that he would need a upper GI study to see if it is possible. Sepsis The patient presented to the hospital with sepsis due to urinary tract source of infection and C. difficile colitis with acute sepsis related organ dysfunction as evidenced by acute kidney injury. The patient received supplemental IV fluids and he was on empiric antibiotics as ordered with Zosyn and p.o. vancomycin. Currently antibiotics are managed by infectious disease and patient seems to be doing well from an infectious standpoint the patient remains hemodynamically stable at the present time. Acute kidney injury Most likely prerenal in etiology in the setting #1. Along with fluid loss from his PEG tube and poor nutrition. His creatinine has improved with volume expansion. Continue supportive care with antibiotics as ordered. Continue to monitor urine output. No current indication for renal replacement therapy. Metastatic colon cancer on chemotherapy/history of bowel obstruction/history of hydronephrosis with bilateral stents Complicates care, management, recovery and prognosis. Continue supportive measures noted above. Additional recommendations per general surgery and urology. I will continue to follow the patient. 09/10/2023- Patient had 1500 ML of sanguinous fluid removed today. His diarrhea is almost completely gone. Patient said he's more constipated. Due to the fact that you cannot eat without wanting to throw up. He still is on treatment for Cdiff. If he decides not to be hospice then we can try to place the GJ tube on Wednesday. Charges/Coding Visit Charges Inpatient E&M: 27086 Subs Hosp L3
[2023-09-10] MEDS: Mirtazapine 15 MG Tablet PO (21:26)
[2023-09-10] MEDS: Atorvastatin Calcium 40 MG Tablet PO (21:26)
[2023-09-11] MEDS: Vancomycin 125 MG/5 ML Susp PO.SYRINGE PO ×4 (00:34→17:26)
[2023-09-11 01:43] VITALS: BMI 28.9
[2023-09-11 02:00] VITALS: BP 120/93; PULSE 91; RESP 16; TEMP 36.6; O2SAT 96
[2023-09-11] MEDS: Cefepime HCl 2 GM in 0.9% Normal Saline (100mL MB+) 100 ML IV ×2 (05:58→14:48)
[2023-09-11 09:00] VITALS: BP 122/98; PULSE 96; RESP 18; TEMP 36.8; O2SAT 97
--- NOTE | 2023-09-11 09:06 | PCM.PN.SRG ---
Subjective Subjective Patient seen and examined during AM rounds. He is found resting in bed. He reports that he is feeling somewhat better after his paracentesis yesterday. He continues to pass lots of gas but has had minimal ostomy output. He shares that he remains on a full liquid diet but continues to have troubles with feeling full and having nausea. Objective Data Objective Data Vital Signs: Vital Signs Temp Pulse Resp BP Pulse Ox O2 Del Method FiO2 97.9 F 91 16 120/93 H 96 Room Air 99 09/11/23 02:00 09/11/23 02:00 09/11/23 02:00 09/11/23 02:00 09/11/23 02:00 09/11/23 08:00 09/05/23 08:00 Oxygen Delivery Method Room Air Weight: 173 lb 15.115 oz Body Mass Index (BMI) 28.9 Intake & Output: Intake and Output for Last 24 Hours 09/09/23 09/10/23 09/11/23 23:59 23:59 23:59 Intake Total 1547.5 / 1547.5 1260 / 1260 100 / 100 Output Total 1925 / 1925 5350 / 5350 650 / 650 Balance -377.5 / -377.5 -4090 / -4090 -550 / -550 Medical Nutrition Assessment Dietitian: Malnutrition Criteria Met Start: 09/05/23 09:32 Freq: Status: Active Protocol: Document 09/10/23 11:55 SLA (Rec: 09/10/23 11:55 SLA Desktop) Nutrition Malnutrition Evidence of Malnutrition Exists Yes Malnutrition (severe): Acute Illness/Injury Evidenced By Suboptimal Energy Intake ( Severe),Weight Loss (Severe) Intake Problem Increased Nutrient Needs (specify) Status Inactive Problem Inadequate Oral Intake Status Inactive Problem Clinical Problem Acute Disease or Injury Related Malnutrition Etiology related to inadequate energy intake and GI dysfunction Signs/Symptoms as evidenced by pt w/ <75% po intake of estimated nutritional needs and 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 If unable to tolerate/advance po diet, rec TPN for nutrition if in accordance w/ pt/family wishes - please consult for rec if desired. Lab / Micro Data 09/10/23 06:20 02/09/24 06:20 Micro: Microbiology 09/07/23 19:20 Blood Culture (Wb) - Line Draw Blood Culture - Preliminary No growth in 48 hours. 09/07/23 11:24 Blood Culture (Wb) - Left Hand Blood Culture - Preliminary No growth in 48 hours. 09/07/23 11:20 Blood Culture (Wb) - Anticubital Left Blood Culture - Preliminary No growth in 48 hours. 09/04/23 17:15 Blood Culture (Wb) - Anticubital Left Blood Culture - Final Klebsiella pneumoniae sp pneum 09/04/23 15:40 Blood Culture (Wb) - Chest Blood Culture - Final Klebsiella pneumoniae sp pneum Proteus mirabilis 09/04/23 16:20 Urine, Clean Catch Urine Culture - Final Klebsiella pneumoniae sp pneum 09/04/23 23:25 Stool Enteric Bacteriology - Final 09/04/23 23:25 Stool C. difficile GDH Antigen & Toxins - Final Toxigenic C. difficile 09/04/23 23:25 Stool Clostridioides difficile (PCR) - Final 09/04/23 16:05 Mucosa - Nose SARS-CoV-2, Influenza & RSV (PCR) - Final Rhythm Strip Rhythm Strip: Sinus Tach Rate: 120 Ectopy: None Physical Exam Const oriented x3 and no apparent distress Constitutional Narrative: Pallor apparent Resp normal respiratory effort GI GI Narrative: Well?healing laparotomy incision, left lower quadrant colostomy with normal?appearing mucosa and only scant output in the ostomy appliance. Patient's abdomen is overall nondistended, soft, nontender to palpation x 4 quadrants. Assessment & Plan Assessment/Plan (1) Nausea & vomiting: PLAN: Patient remains under evaluation for dietary intolerance. He is status post paracentesis yesterday with only moderate volume out. Discussion underway with gastroenterology for possible G-tube to GJ conversion. However, in my independent review of patient's recent CT imaging patient's stomach morphology is not suggestive of a gastric outlet obstruction. It is difficult to assess for possible gastroparesis in the acute setting, but in the interest of trying to evaluate gastric emptying and the possibility of any mechanical bowel obstruction I have advocated for proceeding with a small bowel follow-through via patient's PEG tube. This will hopefully give us snapshots of the gastric emptying process, movement through the small bowel, and may offer a secondary benefit of driving some of patient's backed up colonic stool through to his colostomy. This plan has been discussed with patient, gastroenterology, and primary hospitalist service. Study has been ordered through x-ray. Patient should be held n.p.o. past this time. If he develops severe intolerance of the contrast his PEG tube may be vented but would ask that surgery is notified. Will follow for study results. Mayank Bradford MD General Surgery Endocrine Surgery Pager: [facility] [address] [place] [address], [facility], [address] [place] [address] Office: [phone] Charges/Coding Visit Charges Inpatient E&M: 48753 Subs Hosp L2
[2023-09-11] MEDS: Enoxaparin 40 MG/0.4 ML Syringe SC (09:34)
[2023-09-11] MEDS: Famotidine 20 MG Tablet PO (09:35)
[2023-09-11] MEDS: Tolterodine Tartrate 2 MG CAP.SA PO (09:35)
[2023-09-11] MEDS: Senna/Docusate Sodium 1 Tablet 2 TABLET PO (09:35)
--- NOTE | 2023-09-11 10:30 | RAD_ITS ---
EXAM: XR ABDOMEN, 3 OR MORE VIEWS radiographic small bowel follow-through. CLINICAL INDICATION: f/u dietary intolerance and r/o obstruction -- Films: Immediately post GG, 6h, 12h, and 24h (PEG) TECHNIQUE: Frontal view of the abdomen/pelvis with upright view of the abdomen and one or more additional views. Examination is performed as a radiographic small bowel follow-through. A fish cake maker supine radiograph of the abdomen and supine radiographs of the abdomen immediately following administration of enteric contrast and images at 105 minutes and 6 hours postcontrast. COMPARISON: CT abdomen and pelvis, 09/10/2023 and abdominal radiograph, 09/05/2023. FINDINGS: LOWER THORAX: As best visualized, the lung bases appear clear. INTRAPERITONEAL SPACE: No discrete evidence of free air is identified. GASTROINTESTINAL TRACT: An gastrostomy is present with its tip apparently in the gastric lumen. Apparent at enterostomy in the left lower quadrant correlating with the comparison CT. Contrast is identified within the gastric lumen on early imaging. At 105 minutes, minimal contrast remains near the gastric fundus and the remainder of the contrast is no longer visualized, perhaps diluted into the enteric content. At 6 hours, no appreciable contrast is identified within the stomach or the bowel. Non-obstructive. No obvious extraluminal contrast is present. No bowel or stomach distention. ORGANS: Normal as visualized. No organomegaly. No abnormal calcifications. BONES/JOINTS: No acute pathology. SOFT TISSUES: No acute pathology. TUBES, LINES AND DEVICES: Ureteral stents are present bilaterally. RAD/Small Bowel Series Only IMPRESSION: See above. Contrast early within the stomach. No evidence of extraluminal contrast and no obvious bowel obstruction is identified. Electronically Signed: Russell Garcia DO at 19:17 EST ,
[2023-09-11] MEDS: HYDROmorphone 0.5 MG/0.5 ML SYRINGE IV ×3 (11:40→19:39)
[2023-09-11] MEDS: 0.9% Saline Lock 10 ML Syringe IV ×4 (11:40→19:38)
[2023-09-11] MEDS: Ondansetron 4 MG/2 ML Vial IV (11:40)
--- NOTE | 2023-09-11 12:23 | PCM.PN.HOSP ---
Reason for Visit Reason for Visit: Diagnoses Enterocolitis due to Clostridium difficile, not specified as recurrent (09/04/23) Sepsis, unspecified organism (09/04/23) Malignant neoplasm of rectosigmoid junction (09/04/23) Secondary malignant neoplasm of retroperitoneum and peritoneum (09/04/23) Anemia, unspecified (09/04/23) Other disorders of plasma-protein metabolism, not elsewhere classified (09/04/23) Acute kidney failure, unspecified (09/04/23) Urinary tract infection, site not specified (09/04/23) Nausea with vomiting, unspecified (09/04/23) Severe sepsis without septic shock (09/04/23) Bacteremia (09/04/23) Subjective Subjective No acute events overnight. Patient seen at bedside this morning. Appears fatigued but otherwise was laying comfortably in bed, conversing normally, in no acute distress. Patient had been n.p.o. this morning given plan for Gastrografin small bowel follow-through study later in the morning. Denies any other acute concerns at this time. Objective Data Objective Data Vital Signs: Vital Signs Temp Pulse Resp BP Pulse Ox O2 Del Method FiO2 98.2 F 96 18 122/98 H 97 Room Air 99 09/11/23 09:00 09/11/23 09:00 09/11/23 09:00 09/11/23 09:00 09/11/23 09:00 09/11/23 09:00 09/05/23 08:00 Oxygen Delivery Method Room Air Weight: 78.9 kg Body Mass Index (BMI) 28.9 Intake & Output: Intake and Output for Last 24 Hours 09/09/23 09/10/23 09/11/23 23:59 23:59 23:59 Intake Total 1547.5 / 1547.5 1260 / 1260 100 / 100 Output Total 1925 / 1925 5350 / 5350 650 / 650 Balance -377.5 / -377.5 -4090 / -4090 -550 / -550 Medical Nutrition Assessment Dietitian: Malnutrition Criteria Met Start: 09/05/23 09:32 Freq: Status: Active Protocol: Document 09/10/23 11:55 SLA (Rec: 09/10/23 11:55 SLA Desktop) Nutrition Malnutrition Evidence of Malnutrition Exists Yes Malnutrition (severe): Acute Illness/Injury Evidenced By Suboptimal Energy Intake ( Severe),Weight Loss (Severe) Intake Problem Increased Nutrient Needs (specify) Status Inactive Problem Inadequate Oral Intake Status Inactive Problem Clinical Problem Acute Disease or Injury Related Malnutrition Etiology related to inadequate energy intake and GI dysfunction Signs/Symptoms as evidenced by pt w/ <75% po intake of estimated nutritional needs and 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 If unable to tolerate/advance po diet, rec TPN for nutrition if in accordance w/ pt/family wishes - please consult for rec if desired. Lab / Micro Data 09/10/23 06:20 09/10/23 06:20 Micro: Microbiology 09/07/23 19:20 Blood Culture (Wb) - Line Draw Blood Culture - Preliminary No growth in 48 hours. 09/07/23 11:24 Blood Culture (Wb) - Left Hand Blood Culture - Preliminary No growth in 48 hours. 09/07/23 11:20 Blood Culture (Wb) - Anticubital Left Blood Culture - Preliminary No growth in 48 hours. 09/04/23 17:15 Blood Culture (Wb) - Anticubital Left Blood Culture - Final Klebsiella pneumoniae sp pneum 09/04/23 15:40 Blood Culture (Wb) - Chest Blood Culture - Final Klebsiella pneumoniae sp pneum Proteus mirabilis 09/04/23 16:20 Urine, Clean Catch Urine Culture - Final Klebsiella pneumoniae sp pneum 09/04/23 23:25 Stool Enteric Bacteriology - Final 09/04/23 23:25 Stool C. difficile GDH Antigen & Toxins - Final Toxigenic C. difficile 09/04/23 23:25 Stool Clostridioides difficile (PCR) - Final 09/04/23 16:05 Mucosa - Nose SARS-CoV-2, Influenza & RSV (PCR) - Final Rhythm Strip Rhythm Strip: Sinus Tach Rate: 120 Ectopy: None Physical Exam Const alert, oriented x3, no apparent distress and average body habitus Constitutional Narrative: Pleasant middle-age male, fatigued, otherwise sitting up comfortably in bed, conversing normally, no acute distress. General Appearance: cooperative, comfortable, well kempt and well developed HEENT normocephalic, head/scalp atraumatic, hearing grossly normal bilaterally, nasal mucous membranes and turbinates normal and moist oral mucous membranes Eyes PERRL, EOMs intact bilaterally and conjunctivae normal Neck full ROM, no lymphadenopathy and supple Lymph Lymphatic: no lymphadenopathy noted Chest inspection of chest normal Resp normal respiratory effort, normal air movement, no use of accessory muscles and clear to auscultation bilaterally Cardio regular rate, regular rhythm, no murmurs and peripheral pulses 2+ throughout GI GI Narrative: Colostomy bag noted. Large central incision also noted with all maurilio now removed, incision appears to be healing well. Mild abdominal distention noted, but soft and no tenderness on palpation. Back/Spine normal ROM Extremity normal to inspection, full ROM and no pedal edema Skin no rashes or lesions noted Neuro no focal motor deficits and no sensory deficits noted Speech: speech normal Psych mental status grossly normal Assessment & Plan Assessment/Plan (1) C. difficile colitis: (2) Sepsis: QUALIFIERS: Sepsis type: sepsis due to unspecified organism Sepsis acute organ dysfunction status: with acute organ dysfunction Severe sepsis acute organ dysfunction type: acute renal failure Acute renal failure type: unspecified Severe sepsis shock status: without septic shock Qualified Code(s): A41.9 - Sepsis, unspecified organism; R65.20 - Severe sepsis without septic shock; N17.9 - Acute kidney failure, unspecified (3) Complicated UTI (urinary tract infection): (4) Primary malignant neoplasm of colorectal area with metastasis: (5) DAMIAN (acute kidney injury): PLAN: Plan Patient is a 43-year-old male who presented to [facility] ED on 09/04/2023 for worsening abdominal pain and fevers. 1. Sepsis without shock secondary to complicated UTI versus C. difficile infection, improving; concern for malignant small bowel obstruction with frequent nausea/vomiting Presented with high-grade fever, tachycardia, leukocytosis, DAMIAN and hypotension responsive to IV fluids. C. difficile positive on 09/04. Urine culture and blood cultures from 09/[address] abdomen pelvis on admit showed stable bilateral double-J stent catheters, moderate to large amount of fecal material seen within the colon, PEG tube in stomach with stomach fully distended. S/p IV fluids on admission with improvement in hypotension. Patient unfortunately has had diet advanced to liquid diet each day since 09/08, initially tolerate diet well but then by early afternoon has significant bloating and distention with nausea and vomiting and has to have G-tube placed back to gravity drain with n.p.o. status. CT abdomen pelvis on 09/10 showed ascites with mild stool burden. S/p therapeutic paracentesis with radiology on 09/10 with 1500 mL fluid removed. ? General surgery, infectious disease and GI following. Tire Bladder Maker followed. Patient unfortunately did not tolerate Gastrografin small bowel follow-through study on 09/11, had significant emesis during the study. After discussion with patient and family, decision was made to pursue hospice care. Hospice consulted. 2. Gram-negative bacteremia ? Blood cultures +09/03 positive for Klebsiella on 09/04. Urine culture also positive for Klebsiella, presumed urinary source. Infectious disease following. Culture drawn off chemotherapy port on 09/07 to determine if port may still be salvageable with no growth today. Continue cefepime for now. 3. Recurrent metastatic rectal cancer Initially diagnosed in September 2021. Followed with oncology and colorectal surgery at [facility] until recently. Per our oncologist note, patient did complete neoadjuvant chemotherapy and had surgery to remove his rectal mass at the end of . He unfortunately had recurrence of the rectal mass with peritoneal carcinomatosis noted in 06/2023. Patient lives in [place] near [place] but due to his worsening functional status, he recently moved back in with his mother who lives close to [place]. Plan was to establish with oncology in this area to discuss palliative chemotherapy. ? Oncology followed. Hospice consulted on 09/11 as noted above. Continue oxycodone 5 mg every 4 hours as needed, IV Dilaudid 0.5 mg every 3 hours as needed for pain management. Zofran as needed for nausea. 4. DAMIAN, resolved Creatinine peaked at 2.25 on 09/04, baseline creatinine around 1.1-1.4. Presumed prerenal DAMIAN in setting of sepsis as noted above. CT abdomen pelvis on admit showed no evidence of obstruction. ? Resolved, creatinine 1.12 on 09/07 with adequate urine output. 5. Moderate protein calorie malnutrition secondary to colorectal cancer and surgery ? Surgery following as above. 6. History of small bowel obstruction Followed with general surgery in [place]. Had diverting colostomy placed there about 1 month prior to this admission. Surgical scar from navel to pubis appears to be healing well. ? Surgery following as above. All surgical maurilio removed as of 09/07. Chronic medical conditions: ? Hyperlipidemia: Continue home statin. ? GERD: Continue home Pepcid. ? Hypertension: Holding home lisinopril, restart when able. ? Depression, insomnia: Continue home mirtazapine. ? Type 2 diabetes mellitus: On home metformin 500 mg daily, linagliptin 5 mg daily, semaglutide 1 mg/week. Sliding scale insulin for now. DVT prophylaxis: Lovenox CODE STATUS: Full code, verified Expected disposition: TBD Total clinical time spent by myself addressing the patient's medical issues, reviewing all the data, and collaborating with patient's care team: 35 minutes. Charges/Coding Visit Charges Inpatient E&M: 00466 Subs Hosp L2
[2023-09-11] MEDS: Lactated Ringers 1,000 ML 75 ML IV (13:00)
--- NOTE | 2023-09-11 13:27 | PCM.HOSP.N ---
Hospitalist Note Saw patient at bedside this afternoon. Patient had unfortunately failed the small bowel follow-through study a few hours prior to our conversation, and after this he had told nursing staff that he was ready to transition to hospice care. Patient's brother was present over the phone, and patient had a few close friends in the room for our conversation as well. In discussing with the patient and on further chart review, the surgery team at [facility] had told the patient after his most recent procedure that he would not be a candidate for further surgical management of his cancer. Unfortunately, in discussing with general surgery here, there is no other therapeutic options that we are able to offer the patient at this time. Patient and family/friends were understanding of this. Patient's primary concern was whether he could eat what he can tolerate and then have this food drained through his G-tube. Discussed with Dr. Bradford and this should be an option for the patient. Will consult hospice care for the patient now. Will transition the patient to DNR CCA, DO NOT INTUBATE for now.
--- NOTE | 2023-09-11 13:52 | EX.PCM.PN.GI ---
Subjective Subjective Patient is suggesting that he might want to consider hospice. He is still having multiple episodes of nausea and vomiting and not able to tolerate anything per mouth. Objective Data Objective Data Vital Signs: Vital Signs Temp Pulse Resp BP Pulse Ox O2 Del Method FiO2 98.2 F 96 18 122/98 H 97 Room Air 99 09/11/23 09:00 09/11/23 09:00 09/11/23 09:00 09/11/23 09:00 09/11/23 09:00 09/11/23 09:00 09/05/23 08:00 Oxygen Delivery Method Room Air Weight: 173 lb 15.115 oz Body Mass Index (BMI) 28.9 Intake & Output: Intake and Output for Last 24 Hours 09/09/23 09/10/23 09/11/23 23:59 23:59 23:59 Intake Total 1547.5 / 1547.5 1260 / 1260 115 / 115 Output Total 1925 / 1925 5350 / 5350 1100 / 1100 Balance -377.5 / -377.5 -4090 / -4090 -985 / -985 Medical Nutrition Assessment Dietitian: Malnutrition Criteria Met Start: 09/05/23 09:32 Freq: Status: Active Protocol: Document 09/10/23 11:55 SLA (Rec: 09/10/23 11:55 SLA Desktop) Nutrition Malnutrition Evidence of Malnutrition Exists Yes Malnutrition (severe): Acute Illness/Injury Evidenced By Suboptimal Energy Intake ( Severe),Weight Loss (Severe) Intake Problem Increased Nutrient Needs (specify) Status Inactive Problem Inadequate Oral Intake Status Inactive Problem Clinical Problem Acute Disease or Injury Related Malnutrition Etiology related to inadequate energy intake and GI dysfunction Signs/Symptoms as evidenced by pt w/ <75% po intake of estimated nutritional needs and 14.4% 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 If unable to tolerate/advance po diet, rec TPN for nutrition if in accordance w/ pt/family wishes - please consult for rec if desired. Lab / Micro Data 09/10/23 06:20 09/10/23 06:20 Micro: Microbiology 09/07/23 19:20 Blood Culture (Wb) - Line Draw Blood Culture - Preliminary No growth in 48 hours. 09/07/23 11:24 Blood Culture (Wb) - Left Hand Blood Culture - Preliminary No growth in 48 hours. 09/07/23 11:20 Blood Culture (Wb) - Anticubital Left Blood Culture - Preliminary No growth in 48 hours. 09/04/23 17:15 Blood Culture (Wb) - Anticubital Left Blood Culture - Final Klebsiella pneumoniae sp pneum 09/04/23 15:40 Blood Culture (Wb) - Chest Blood Culture - Final Klebsiella pneumoniae sp pneum Proteus mirabilis 09/04/23 16:20 Urine, Clean Catch Urine Culture - Final Klebsiella pneumoniae sp pneum 09/04/23 23:25 Stool Enteric Bacteriology - Final 09/04/23 23:25 Stool C. difficile GDH Antigen & Toxins - Final Toxigenic C. difficile 09/04/23 23:25 Stool Clostridioides difficile (PCR) - Final 09/04/23 16:05 Mucosa - Nose SARS-CoV-2, Influenza & RSV (PCR) - Final Rhythm Strip Rhythm Strip: Sinus Tach Rate: 120 Ectopy: None Physical Exam Const oriented x3 Resp normal respiratory effort GI soft to palpation and non-tender Assessment & Plan Assessment/Plan (1) Sepsis: QUALIFIERS: Sepsis type: sepsis due to unspecified organism Sepsis acute organ dysfunction status: with acute organ dysfunction Severe sepsis acute organ dysfunction type: acute renal failure Acute renal failure type: unspecified Severe sepsis shock status: without septic shock Qualified Code(s): A41.9 - Sepsis, unspecified organism; R65.20 - Severe sepsis without septic shock; N17.9 - Acute kidney failure, unspecified (2) C. difficile colitis: (3) Nausea & vomiting: PLAN: Plan Possible gastric outlet obstruction versus small bowel obstruction I am not sure if he has than gastric outlet obstruction with small bowel obstruction. He may benefit from GJ tube if he is not going to be hospice. He says that he has to talk to his brother as he is the power of bankruptcy attorney and he is undecided regarding what he wants to do. If he is going to do that he would need a upper GI study to see if it is possible. Sepsis The patient presented to the hospital with sepsis due to urinary tract source of infection and C. difficile colitis with acute sepsis related organ dysfunction as evidenced by acute kidney injury. The patient received supplemental IV fluids and he was on empiric antibiotics as ordered with Zosyn and p.o. vancomycin. Currently antibiotics are managed by infectious disease and patient seems to be doing well from an infectious standpoint the patient remains hemodynamically stable at the present time. Acute kidney injury Most likely prerenal in etiology in the setting #1. Along with fluid loss from his PEG tube and poor nutrition. His creatinine has improved with volume expansion. Continue supportive care with antibiotics as ordered. Continue to monitor urine output. No current indication for renal replacement therapy. Metastatic colon cancer on chemotherapy/history of bowel obstruction/history of hydronephrosis with bilateral stents Complicates care, management, recovery and prognosis. Continue supportive measures noted above. Additional recommendations per general surgery and urology. I will continue to follow the patient. 09/10/2023- Patient had 1500 ML of sanguinous fluid removed today. His diarrhea is almost completely gone. Patient said he's more constipated. Due to the fact that you cannot eat without wanting to throw up. He still is on treatment for Cdiff. If he decides not to be hospice then we can try to place the GJ tube on Wednesday. 09/11/2023-I had a talk with general surgery Dr. Bradford and we both agreed that there was no signs of obstruction. I do not know what is anatomy looks like and that would perk then him from being able to tolerate any food per mouth. He also has trouble tolerating it via the PEG tube so it makes you think that he may have some type of intrinsic disease involving his GI tract. Agree with either transfer back to his institution that knows him very well or hospice. Charges/Coding Visit Charges Inpatient E&M: 40016 Subs Hosp L3
[2023-09-11 15:41] VITALS: BP 110/87; PULSE 109; RESP 18; TEMP 36.6; O2SAT 96
--- NOTE | 2023-09-11 19:15 | NURSING ---
Called report to [facility]
[2023-09-11] MEDS: oxyCODONE 5 MG Tablet PO (20:07)
--- NOTE | 2023-09-11 20:49 | NURSING ---
Pt's brother notified of pt transfer. Pt is on way to in pt hospice unit.
--- NOTE | 2023-09-12 07:53 | DCINST_ITS ---
Discharge Instructions Diet Discharge Diet: No restrictions Activity Discharge Activity: No Restrictions Weight Bearing Status: Full weight bearing Follow Up Care Test Results: Test results from this visit will be discussed in further detail at your follow- up appointment, if applicable. Discharge Plan Admission Admit Date/Time: 09/04/23 18:31 Primary Reason for Your Visit: abdominal pain Attending Provider: Jovanni Early Primary Care Provider: Cara Padron Consulting Providers: Alex Vera; Ernesto Ivan; Abdias Wills; Abhinav Winters; Taco Greenberg; Jeff Jackson; Graciela Carney; Lito Bear; Kishan Ramos; Christian Kilgore; Dmitry Ogden; Kristen Burnette CUSTOMER SUPPORT CONSULTANT; Lito Whittington; Taco Warner; Dorina Pal; Helga Cespedes; Isabella Kumar CUSTOMER SUPPORT CONSULTANT Instructions Patient Instructions: JUJU BURGESS Paracentesis Dc Discharge Orders/Prescriptions Prescriptions: Continued gabapentin 300 mg capsule 300 mg PO DAILY morphine 30 mg tablet extended release 30 mg PO Q12H PRN (Reason: pain) Patient Comments: TAKE 1 TABLET BY MOUTH EVERY 12 HOURS oxycodone 10 mg tablet 10 mg PO Q4H PRN (Reason: pain) Patient Comments: TAKE 1 TABLET BY MOUTH EVERY 4 TO 6 HOURS NEEDED FOR PAIN sennosides-docusate sodium [Stool Softener-Laxative] 8.6-50 mg tablet 1 tab-cap PO BID PRN PRN (Reason: constipation) Patient Comments: TAKE 1 TABLET BY MOUTH NIGHTLY prochlorperazine maleate 10 mg tablet 10 mg PO Q6H PRN (Reason: nausea) Patient Comments: TAKE 1 TABLET BY MOUTH EVERY 6 HOURS NEEDED FOR NAUSEA dronabinol 5 mg capsule 5 mg PO BID Rx Instructions: administer before lunch and evening meal/dinner mirtazapine 15 mg tablet 15 mg PO QHS ondansetron HCl 4 mg tablet 4 mg PO Q6H PRN (Reason: N/V) trazodone 50 mg tablet 25 mg PO QHS Discontinued Ozempic 1 mg/dose (4 mg/3 mL) pen injector 1 mg subcut QWEEK capecitabine 150 mg tablet 150 mg PO BID Rx Instructions: administer with 3 - 500 mg tabs for each dose; must give with water 30 minutes after a meal metformin 500 mg tablet 500 mg PO DAILY lisinopril 10 mg tablet 10 mg PO DAILY cephalexin 500 mg capsule 500 mg PO Q12 Qty: 14 0RF oxybutynin chloride 5 mg tablet extended release 24hr 10 mg PO DAILY Patient Comments: TAKE 1 TABLET BY MOUTH ONCE DAILY Tradjenta 5 mg tablet 5 mg PO DAILY Patient Comments: TAKE 1 TABLET BY MOUTH ONCE DAILY atorvastatin 40 mg tablet 40 mg PO DAILY Patient Comments: TAKE 1 TABLET BY MOUTH ONCE DAILY ergocalciferol (vitamin D2) [Drisdol] 1,250 mcg (50,000 unit) capsule 50,000 unit PO QWEEK famotidine 20 mg tablet 20 mg PO BID multivitamin Tablet 1 tab PO DAILY Referrals / Follow Up: Cara Padron MD [Primary Care Provider] - Disposition Disposition (needs filled in before D/C Order can be placed): Hospice in Medical Facility
--- NOTE | 2023-09-12 07:56 | DS.PCM_ITS ---
Providers Date of Admission: 09/04/23 Date of Discharge: 09/11/23 Primary Care Physician: Dr. Cara Padron MD Consultations 09/04/23 19:28 Consult: General Surgery Routine Consulting Provider: Alex Vera Reason for Consult: abd distension and pain EMERGENT Consult: No MD Notified: Yes Date Notified: 09/04/23 Time Notified: 19:28 Method of Notification: Verbal 09/04/23 20:49 Consult: Polyethylene Combiner / Pulmonary Medicine Routine Consulting Provider: Intensivists/Pulmonary Med Reason for Consult: sepsis EMERGENT Consult: No MD Notified: Yes Date Notified: 09/04/23 Time Notified: 18:48 Method of Notification: Text Consult: Urology Routine Consulting Provider: Ernesto Ivan Reason for Consult: UTI with H/o B/L hydro and stent EMERGENT Consult: No MD Notified: Yes Date Notified: 09/04/23 Time Notified: 19:06 Method of Notification: ED Physician Initiated 09/06/23 07:28 Consult: Onc/Wound/clinical product specialist Routine Comment: Reason for Consult:: colostomy 09/06/23 13:41 Consult: Oncology/Hematology Routine Consulting Provider: [facility] Reason for Consult: metastatic rectal cancer EMERGENT Consult: No MD Notified: Yes Date Notified: 09/06/23 Time Notified: 13:41 Method of Notification: Answering Service 09/07/23 07:42 Consult: Infectious Disease Routine Consulting Provider: Lito Whittington Reason for Consult: gram negative bacteremia from UTI, chemo port in place EMERGENT Consult: No MD Notified: Yes Date Notified: 09/07/23 Time Notified: 07:42 Method of Notification: Text 09/07/23 07:56 Consult: Hospice / Palliative Care Routine Consulting Provider: [facility] Reason for Consult: recurrent metastatic rectal ca, discuss palliative care versus hospice EMERGENT Consult: No MD Notified: Yes Date Notified: 09/07/23 Time Notified: 07:56 Method of Notification: Verbal 09/08/23 09:02 Consult: Gastroenterology Routine Consulting Provider: [facility] Reason for Consult: C diff infection in setting of metastatic rectal ca EMERGENT Consult: No MD Notified: Yes Date Notified: 09/08/23 Time Notified: 09:02 Method of Notification: Text 09/11/23 13:39 Consult: Hospice / Palliative Care Routine Consulting Provider: [facility] Reason for Consult: hospice care for metastatic rectal ca EMERGENT Consult: No MD Notified: Yes Date Notified: 09/11/23 Time Notified: 14:23 Method of Notification: Answering Service Reason For Visit: SEPSIS Diagnosis Discharge Diagnosis (1) C. difficile colitis: Status: Acute Code(s): A04.72 - Enterocolitis due to Clostridium difficile, not specified as recurrent (2) Sepsis: Status: Acute Code(s): A41.9 - Sepsis, unspecified organism Qualifiers: Sepsis type: sepsis due to unspecified organism Sepsis acute organ dysfunction status: with acute organ dysfunction Severe sepsis acute organ dysfunction type: acute renal failure Acute renal failure type: unspecified Severe sepsis shock status: without septic shock Qualified Code(s): A41.9 - Sepsis, unspecified organism; R65.20 - Severe sepsis without septic shock; N17.9 - Acute kidney failure, unspecified (3) Complicated UTI (urinary tract infection): Status: Acute Code(s): N39.0 - Urinary tract infection, site not specified (4) Primary malignant neoplasm of colorectal area with metastasis: Status: Acute Code(s): C19 - Malignant neoplasm of rectosigmoid junction (5) DAMIAN (acute kidney injury): Status: Acute Code(s): N17.9 - Acute kidney failure, unspecified Medications at Discharge Home Medications morphine 30 mg tablet,extended release 30 mg PO Q12H PRN pain 07/30/23 oxycodone 10 mg tablet 10 mg PO Q4H PRN pain 07/30/23 prochlorperazine maleate 10 mg tablet 10 mg PO Q6H PRN nausea 07/30/23 sennosides 8.6 mg-docusate sodium 50 mg tablet (Stool Softener-Laxative) 1 tab- cap PO BID PRN PRN constipation 07/30/23 gabapentin 300 mg capsule 300 mg PO DAILY 08/24/23 dronabinol 5 mg capsule 5 mg PO BID POOR APPETITE 09/04/23 mirtazapine 15 mg tablet 15 mg PO QHS DEPRESSION 09/04/23 ondansetron HCl 4 mg tablet 4 mg PO Q6H PRN N/V 09/04/23 trazodone 50 mg tablet 25 mg PO QHS INSOMNIA 09/04/23 Hospital Course Operations None Procedures EKG, Paracentesis and - (CT abdomen pelvis, chest x-ray, KUB, small bowel x-ray) Summary of Care Provided Minutes Spent on Discharge: 35 Hospital Course: Patient is a 43-year-old male who presented to [facility] ED on 09/04/2023 for worsening abdominal pain and fevers. Hospital course as noted below. Discharged to inpatient hospice unit on 09/11. 1. Sepsis without shock secondary to complicated UTI versus C. difficile infection, improving; concern for malignant small bowel obstruction with frequent nausea/vomiting Presented with high-grade fever, tachycardia, leukocytosis, DAMIAN and hypotension responsive to IV fluids. C. difficile positive on 09/04. Urine culture and blood cultures from 09/[address] abdomen pelvis on admit showed stable bilateral double-J stent catheters, moderate to large amount of fecal m aterial seen within the colon, PEG tube in stomach with stomach fully distended. S/p IV fluids on admission with improvement in hypotension. Patient unfortunately has had diet advanced to liquid diet each day since 09/08, initially tolerate diet well but then by early afternoon has significant bloating and distention with nausea and vomiting and has to have G-tube placed back to gravity drain with n.p.o. status. CT abdomen pelvis on 09/10 showed ascites with mild stool burden. S/p therapeutic paracentesis with radiology on 09/10 with 1500 mL fluid removed. ? General surgery, infectious disease, GI, animal warden followed. Patient unfortunately did not tolerate Gastrografin small bowel follow-through study on 09/11, had significant emesis during the study. After discussion with patient and family, decision was made to pursue hospice care. Discharged to inpatient hospice unit on 09/11. 2. Gram-negative bacteremia ? Blood cultures +09/03 positive for Klebsiella on 09/04. Urine culture also po sitive for Klebsiella, presumed urinary source. Infectious disease followed. Culture drawn off chemotherapy port on 09/07 to determine if port may still be salvageable with no growth. No abx on discharge. 3. Recurrent metastatic rectal cancer Initially diagnosed in September 2021. Followed with oncology and colorectal surgery at [facility] until recently. Per our onco logist note, patient did complete neoadjuvant chemotherapy and had surgery to remove his rectal mass at the end . He unfortunately had recurrence of the rectal mass with peritoneal carcinomatosis noted in 06/2023. Patient lives in [place] near [place] but due to his worsening functional status, he recently moved back in with his mother who lives close to [place]. Plan was to establish with oncology in this area to discuss palliative chemotherapy. ? Oncology followed. Transitioned to hospice on 09/11. Pain/comfort medications per hospice. 4. DAMIAN, resolved Creatinine peaked at 2.25 on 09/04, baseline creatinine around 1.1-1.4. Presumed prerenal DAMIAN in setting of sepsis as noted above. CT abdomen pelvis on admit showed no evidence of obstruction. ? Resolved, creatinine 1.12 on 09/07 with adequate urine output. 5. Moderate protein calorie malnutrition secondary to colorectal cancer and surgery ? Surgery followed as above. 6. History of small bowel obstruction Followed with general surgery in [place]. Had diverting colostomy placed there about 1 month prior to this admission. Surgical scar from navel to pubis appears to be healing well. ? Surgery followed as above. All surgical maurilio removed as of 09/07. Chronic medical conditions: ? Hyperlipidemia: Continue home statin. ? GERD: Continue home Pepcid. ? Hypertension: Holding home lisinopril, restart when able. ? Depression, insomnia: Continue home mirtazapine. ? Type 2 diabetes mellitus: On home metformin 500 mg daily, linagliptin 5 mg daily, semaglutide 1 mg/week. Sliding scale insulin for now. Total clinical time spent by myself addressing the patient's discharge needs: 35 minutes. Physical Exam Const alert, oriented x3, no apparent distress and average body habitus Constitutional Narrative: Pleasant middle-age male, fatigued, otherwise sitting up comfortably in bed, conversing normally, no acute distress. General Appearance: cooperative, comfortable, well kempt and well developed HEENT normocephalic, head/scalp atraumatic, hearing grossly normal bilaterally, nasal mucous membranes and turbinates normal and moist oral mucous membranes Eyes PERRL, EOMs intact bilaterally and conjunctivae normal Neck full ROM, no lymphadenopathy and supple Lymph Lymphatic: no lymphadenopathy noted Chest inspection of chest normal Resp normal respiratory effort, normal air movement, no use of accessory muscles and clear to auscultation bilaterally Cardio regular rate, regular rhythm, no murmurs and peripheral pulses 2+ throughout GI GI Narrative: Colostomy bag noted. Large central incision also noted with all maurilio now removed, incision appears to be healing well. Mild abdominal distention noted, but soft and no tenderness on palpation. Back/Spine normal ROM Extremity normal to inspection, full ROM and no pedal edema Skin no rashes or lesions noted Neuro no focal motor deficits and no sensory deficits noted Speech: speech normal Psych mental status grossly normal Weight / BMI Weight Weight: 78.9 kg Body Mass Index (BMI) 28.9 ABG / Lab / Microbiology Data 09/10/23 06:20 09/10/23 06:20 Microbiology: Microbiology 09/07/23 19:20 Blood Culture (Wb) - Line Draw Blood Culture - Preliminary No growth in 48 hours. 09/07/23 11:24 Blood Culture (Wb) - Left Hand Blood Culture - Preliminary No growth in 48 hours. 09/07/23 11:20 Blood Culture (Wb) - Anticubital Left Blood Culture - Preliminary No growth in 48 hours. 09/04/23 17:15 Blood Culture (Wb) - Anticubital Left Blood Culture - Final Klebsiella pneumoniae sp pneum 09/04/23 15:40 Blood Culture (Wb) - Chest Blood Culture - Final Klebsiella pneumoniae sp pneum Proteus mirabilis 09/04/23 16:20 Urine, Clean Catch Urine Culture - Final Klebsiella pneumoniae sp pneum 09/04/23 23:25 Stool Enteric Bacteriology - Final 09/04/23 23:25 Stool C. difficile GDH Antigen & Toxins - Final Toxigenic C. difficile 09/04/23 23:25 Stool Clostridioides difficile (PCR) - Final 09/04/23 16:05 Mucosa - Nose SARS-CoV-2, Influenza & RSV (PCR) - Final Radiography Diagnostic Testing: Radiology Impression Small Bowel X-Ray 09/11/23 10:30 IMPRESSION: See above. Contrast early within the stomach. No evidence of extraluminal contrast and no obvious bowel obstruction is identified. Electronically Signed: Russell Garcia DO at 19:17 EST , D/C Instructions Discharge Diet: No restrictions Weight Bearing Status: Full weight bearing Meaningful Use Info Meaningful Use Diagnoses (Choose all that apply): None applicable Discharge Plan Admission Admit Date/Time: 09/04/23 18:31 Primary Reason for Your Visit: abdominal pain Attending Provider: Jovanni Early Primary Care Provider: Cara Padron Consulting Providers: Alex Vera; Ernesto Ivan; Abdias Wills; Abhinav Winters; Taco Greenberg; Jeff Jackson; Graciela Carney; Lito Bear; Kishan Ramos; Christian Kilgore; Dmitry Ogden; Kristen Burnette [employer]2B OUTSIDE SALES REPRESENTATIVE; Lito Whittington; Taco Warner; Dorina Pal; Helga Cespedes; Isabella Kumar B2B OUTSIDE SALES REPRESENTATIVE Instructions Patient Instructions: JUJU BURGESS Paracentesis Dc Discharge Orders/Prescriptions Prescriptions: Continued gabapentin 300 mg capsule 300 mg PO DAILY morphine 30 mg tablet extended release 30 mg PO Q12H PRN (Reason: pain) Patient Comments: TAKE 1 TABLET BY MOUTH EVERY 12 HOURS oxycodone 10 mg tablet 10 mg PO Q4H PRN (Reason: pain) Patient Comments: TAKE 1 TABLET BY MOUTH EVERY 4 TO 6 HOURS NEEDED FOR PAIN sennosides-docusate sodium [Stool Softener-Laxative] 8.6-50 mg tablet 1 tab-cap PO BID PRN PRN (Reason: constipation) Patient Comments: TAKE 1 TABLET BY MOUTH NIGHTLY prochlorperazine maleate 10 mg tablet 10 mg PO Q6H PRN (Reason: nausea) Patient Comments: TAKE 1 TABLET BY MOUTH EVERY 6 HOURS NEEDED FOR NAUSEA dronabinol 5 mg capsule 5 mg PO BID Rx Instructions: administer before lunch and evening meal/dinner mirtazapine 15 mg tablet 15 mg PO QHS ondansetron HCl 4 mg tablet 4 mg PO Q6H PRN (Reason: N/V) trazodone 50 mg tablet 25 mg PO QHS Discontinued Ozempic 1 mg/dose (4 mg/3 mL) pen injector 1 mg subcut QWEEK capecitabine 150 mg tablet 150 mg PO BID Rx Instructions: administer with 3 - 500 mg tabs for each dose; must give with water 30 minutes after a meal metformin 500 mg tablet 500 mg PO DAILY lisinopril 10 mg tablet 10 mg PO DAILY cephalexin 500 mg capsule 500 mg PO Q12 Qty: 14 0RF oxybutynin chloride 5 mg tablet extended release 24hr 10 mg PO DAILY Patient Comments: TAKE 1 TABLET BY MOUTH ONCE DAILY Tradjenta 5 mg tablet 5 mg PO DAILY Patient Comments: TAKE 1 TABLET BY MOUTH ONCE DAILY atorvastatin 40 mg tablet 40 mg PO DAILY Patient Comments: TAKE 1 TABLET BY MOUTH ONCE DAILY ergocalciferol (vitamin D2) [Drisdol] 1,250 mcg (50,000 unit) capsule 50,000 unit PO QWEEK famotidine 20 mg tablet 20 mg PO BID multivitamin Tablet 1 tab PO DAILY Referrals / Follow Up: Cara Padron MD [Primary Care Provider] - Disposition Disposition (needs filled in before D/C Order can be placed): Hospice in Medical Facility Charges/Coding Visit Charges Inpatient E&M: 40153 Disch Hosp >30min
== END 2023-09-11 20:30 | disposition hospice, inpatient (51) | DRG 698 ==
LOC: ED 18:09 → ICU 20:16 → PCU 09-07 02:11
PROVIDERS: Family Medicine; Nurse Practitioner Family; Admitting Provider Internal Medicine; Emergency Provider Emergency Medicine; PCP Internal Medicine; Visit Provider Hospitalist
DX: T83.592A Infection and inflammatory reaction due to indwelling ureteral stent, initial encounter (principal); A41.59 Other Gram-negative sepsis; R65.20 Severe sepsis without septic shock; E44.0 Moderate protein-calorie malnutrition; A04.72 Enterocolitis due to Clostridium difficile, not specified as recurrent; K56.7 Ileus, unspecified; N13.6 Pyonephrosis; N17.9 Acute kidney failure, unspecified; C78.6 Secondary malignant neoplasm of retroperitoneum and peritoneum; C19 Malignant neoplasm of rectosigmoid junction; R18.8 Other ascites; D63.8 Anemia in other chronic diseases classified elsewhere; E88.09 Other disorders of plasma-protein metabolism, not elsewhere classified; E11.40 Type 2 diabetes mellitus with diabetic neuropathy, unspecified; Z93.3 Colostomy status; Z93.1 Gastrostomy status; I10 Essential (primary) hypertension; F32.A Depression, unspecified; E78.5 Hyperlipidemia, unspecified; K21.9 Gastro-esophageal reflux disease without esophagitis; E86.9 Volume depletion, unspecified; Y73.2 Prosthetic and other implants, materials and accessory gastroenterology and urology devices associated with adverse incidents; Z68.28 Body mass index [BMI] 28.0-28.9, adult; B96.1 Klebsiella pneumoniae [K. pneumoniae] as the cause of diseases classified elsewhere; Z51.5 Encounter for palliative care; Z66 Do not resuscitate; G47.00 Insomnia, unspecified; Z11.52 Encounter for screening for COVID-19; Z79.84 Long term (current) use of oral hypoglycemic drugs; Z79.899 Other long term (current) drug therapy; Z92.3 Personal history of irradiation; Z92.21 Personal history of antineoplastic chemotherapy; Z87.891 Personal history of nicotine dependence; Z80.0 Family history of malignant neoplasm of digestive organs
CPT/HCPCS: 36415; 36591; 49083; 71045; 74018; 74177; 74250; 80048; 80053; 81001; 82550; 82607; 82728; 82746; 83540; 83550; 83605; 83735; 84100; 85025; 85027; 85610; 85730; 87040; 87077; 87086; 87088; 87186; 87493; 87506; 87631; 87641; 93005; 94762; 97110; 97162; 97166; 97530; 97535; 97802; 99285; J2997; J7030; J7040; J7050; J7120; Q9967; A4216; J2405